=== PATIENT | female | born 1985 | race Caucasian/White ===

== ENCOUNTER 2016-09-01 11:17 | Inpatient (IN) | payer OTHER ==
[2016-09-01 12:31] VITALS: BMI 19.0
--- NOTE | 2016-09-01 13:14 | HP ---
COWS - Scale Resting Pulse: 1= [place] 81-100 Sweatin=Flushed/Facial Moisture Restless Observation: 1= Difficult to Sit Still Pupil Size: 0= Normal to Room Light Bone or Joint Aches: 2= Severe Diffuse Aches Runny Nose/ Eye Tearin= Runny Nose/Eyes GI Upset > 30mins: 2= Nausea/Diarrhea Tremor Observation: 2= Slight Tremor Visible Yawning Observation: 2= >3x During Session Anxiety or Irritability: 2=Irritable/Anxious Goose Flesh Skin: 3=Piloerection COWS Score: 19 Admission ROS S - HPI Chief Complaint: I need help Allergies/Adverse Reactions: Allergies Allergy/AdvReac Type Severity Reaction Status Date / Time No Known Allergies Allergy Verified 09/01/16 13:04 History of Present Illness: pt is a 30yr old female with a history of heroin dependence seeking detox for treatment. Exam Limitations: No Limitations - Ebola screening Have you traveled outside of the country in the last 21 days: No Have you had contact with anyone from an Ebola affected area: No Have you been sick,other than usual withdrawal symptoms: No Do you have a fever: No - Review of Systems Constitutional: Chills, Loss of Appetite, Changes in sleep, Unintentional Wgt. Loss EENT: reports: Tearing, Nose Congestion Respiratory: reports: No Symptoms reported Cardiac: reports: No Symptoms Reported GI: reports: Diarrhea, Nausea, Poor Appetite, Poor Fluid Intake : reports: No Symptoms Reported Musculoskeletal: reports: Back Pain, Joint Pain Integumentary: reports: Flushing, Sweating Neuro: reports: Headache, Tingling, Tremors Endocrine: reports: Excessive Sweating, Flushing, Intolerance to Cold, Intolerance to Heat Hematology: reports: Anemia Psychiatric: reports: Judgement Intact, Mood/Affect Appropiate, Orientated x3, Agitated, Anxious Other Systems: Reviewed and Negative Patient History - Patient Medical History Hx Anemia: Yes Hx Asthma: No Hx Chronic Obstructive Pulmonary Disease (COPD): No Hx Cancer: No Hx Cardiac Disorders: No Hx Congestive Heart Failure: No Hx Hypertension: Yes (clonidine 0.3mg tid) Hx Hypercholesterolemia: No Hx Pacemaker: No HX Cerebrovascular Accident: No Hx Seizures: No Hx Dementia: No Hx Diabetes: No Hx Gastrointestinal Disorders: No Hx Liver Disease: No Hx Genitourinary Disorders: No Hx Sexually Transmitted Disorders: No Hx Renal Disease (ESRD): No Hx Thyroid Disease: No Hx Human Immunodeficiency Virus (HIV): No (negative) Hx Hepatitis C: Yes Hx Depression: No Hx Suicide Attempt: No (denies) Hx Bipolar Disorder: No Hx Schizophrenia: No Other Medical History: anxiety - Patient Surgical History Hx Abdominal Surgery: Yes () - PPD History Previous Implant?: Yes Documented Results: Negative w/o proof Implanted On Prior R Admission?: Yes PPD to be Administered?: Yes - Reproductive History Patient is a Female of Child Bearing Age (11 -55 yrs old): Yes LMP comment: 3 yrs ago Patient : No - Smoking Cessation Smoking history: Current every day smoker Have you smoked in the past 12 months: Yes Aproximately how many cigarettes per day: 10 Hx Chewing Tobacco Use: No Initiated information on smoking cessation: Yes 'Breaking Loose' booklet given: 09/01/16 - Substance & Tx. History Hx Alcohol Use: No Hx Substance Use: Yes Substance Use Type: Heroin, Tranquilizers - Substances Abused Heroin Route: Injection Frequency: 3-6 times per week Amount used: 5-10 bags Age of first use: 15 Date of Last Use: 08/31/16 Xanax Route: Oral Frequency: Daily Amount used: 4-8 mg. Age of first use: 12 Date of Last Use: 08/29/16 Family Disease History - Family Disease History Family History: Denies Admission Physical Exam BHS - Vital Signs Vital Signs: Vital Signs - 24 hr 09/01/16 12:26 Temperature 96 F L Pulse Rate 93 H Respiratory 20 Rate Blood Pressure 134/94 - Physical General Appearance: Yes: Appropriately Dressed, Thin, Tremorous, Irritable, Sweating, Anxious HEENTM: Yes: Normal Voice, Nasal Congestion, Rhinorrhea Respiratory: Yes: Lungs Clear, Normal Breath Sounds, No Respiratory Distress Neck: Yes: No masses,lesions,Nodules Breast: Yes: Within Normal Limits Cardiology: Yes: Regular Rhythm, Regular Rate, S1, S2, Tachycardia Abdominal: Yes: Normal Bowel Sounds, Non Tender, Soft Genitourinary: Yes: Within Normal Limits Back: Yes: Normal Inspection Musculoskeletal: Yes: full range of Motion, Back pain Extremities: Yes: Normal Capillary Refill, Tremors Neurological: Yes: Fully Oriented, Alert, Normal Response Integumentary: Yes: Normal Color, Diaphoresis, Track Evans Lymphatic: Yes: Within Normal Limits - Diagnostic (1) Nicotine dependence Current Visit: Yes Status: Chronic Qualifiers: Nicotine product type: cigarettes Substance use status: uncomplicated Qualified Code(s): F17.210 - Nicotine dependence, cigarettes, uncomplicated (2) Opioid dependence with withdrawal Current Visit: Yes Status: Chronic (3) Hypertension Current Visit: Yes Status: Chronic Qualifiers: Hypertension type: essential hypertension Qualified Code(s): I10 - Essential (primary) hypertension (4) Hepatitis C Current Visit: Yes Status: Chronic Qualifiers: Viral hepatitis chronicity: chronic Hepatic coma status: without hepatic coma Qualified Code(s): B18.2 - Chronic viral hepatitis C Cleared for Admission BHS - Detox or Rehab [facility] Level of Care: Medically Managed Detox Regimen/Protocol: Methadone [facility] Breath Alcohol Content Breath Alcohol Content: 0 Urine Pregancy Test - Result Urine Test Results: Negative- NO Line Present Urine Drug Screen - Results Drug Screen Negative: No Urine Drug Screen Results: GISEL-Cocaine, OPI-Opiates, PCP-Phencyclidine, MTD- Methadone
[2016-09-01] MEDS ORDERED: MAGNESIUM CITRATE 300 ML BOTTLE PO PRN (13:33)
[2016-09-01] MEDS ORDERED: MAGNESIUM HYDROX 2400MG/30ML ORAL SUSPENSION 30 ML CUP PO PRN (13:33)
[2016-09-01] MEDS ORDERED: guaiFENesin/D-METHORPHAN HB 10 ML UNIT-DOSE CUPS PO PRN (13:33)
[2016-09-01] MEDS ORDERED: LOPERAMIDE HCL 2 MG CAPSULE PO PRN (13:33)
[2016-09-01] MEDS ORDERED: MAG HYDROX/AL HYDROX/SIMETH 30 ML UNIT-DOSE CUP PO PRN (13:33)
[2016-09-01] MEDS ORDERED: diphenhydrAMINE HCL 50 MG CAPSULE PO PRN (13:33)
[2016-09-01] MEDS ORDERED: MENTHOL/PHENOL 1 EACH UD MM PRN (13:33)
[2016-09-01] MEDS ORDERED: hydrOXYzine PAMOATE 50 MG CAPSULE (FP) PO PRN (13:33)
[2016-09-01] MEDS ORDERED: P-EPHED 60MG/TRIPROLIDI 2.5MG TABLET PO PRN (13:33)
[2016-09-01] MEDS ORDERED: METHADONE HCL 10 MG TABLET (FOR DETOX USE ONLY) PO ONE ×2 (14:15→23:00)
[2016-09-01] MEDS: diazePAM 5 MG TABLET PO PRN ×2 (14:58→22:24)
--- NOTE | 2016-09-01 15:25 | CONSULT ---
[facility] Psychiatric Consult - Data Date of interview: 09/01/16 Admission source: [facility] Identifying data: This is 30 years old female with psychgiatric hospitalization history intoxicated with: Heroin, Xanax and Nicotine Substance Abuse History: Smoking Cessation. Smoking history: Current every day smoker. Have you smoked in the past 12 months: Yes. Aproximately how many cigarettes per day: 10. Hx Chewing Tobacco Use: No. Initiated information on smoking cessation: Yes. 'Breaking Loose' booklet given: 09/01/16. - Substance & Tx. History. Hx Alcohol Use: No. Hx Substance Use: Yes. Substance Use Type : Heroin, Tranquilizers. - Substances Abused. Heroin. Route: Injection. Frequency: 3-6 times per week. Amount used: 5-10 bags. Age of first use: 15. Date of Last Use: 08/31/16. Xanax. Route: Oral. Frequency: Daily. Amount used: 4-8 mg. Age of first use: 12. Date of Last Use: 08/29/16 Medical History: HTN, HepC+, Psychiatric History: Patoient reports history of PTSD, reports only psychiatric admission on about 8 years ago after in family, denies suicidal history, reports taking prior to admission : Gabapentin 800mg po tid. Klonopin Physical/Sexual Abuse/Trauma History: Denies Additional Comment: Gabapentin 800mg po tid Mental Status Exam - Mental Status Exam Alert and Oriented to: Person Cognitive Function: Fair Patient Appearance: Unkempt Mood: Anxious Affect: Mood Congruent Patient Behavior: Impulsive, Talkative Speech Pattern: Excessive, Pressured Voice Loudness: Mildly Loud Thought Process: Goal Oriented Thought Disorder: Being Controlled Hallucinations: Denies Suicidal Ideation: Denies Homicidal Ideation: Denies Insight/Judgement: Fair Sleep: Difficulty falling asleep Appetite: Weight loss Muscle strength/Tone: Normal Gait/Station: Normal Additional Comments: Gabapentin 800mg po tid Psychiatric Findings - Problem List ([place] 1, 2,3) (1) Nicotine dependence Current Visit: Yes Status: Chronic Qualifiers: Nicotine product type: cigarettes Substance use status: uncomplicated Qualified Code(s): F17.210 - Nicotine dependence, cigarettes, uncomplicated (2) Opioid dependence with withdrawal Current Visit: Yes Status: Chronic (3) Klonopin use disorder, mild, abuse Current Visit: Yes Status: Acute (4) Drug-induced mood disorder Current Visit: Yes Status: Acute - Initial Treatment Plan Initial Treatment Plan: Gabapentin 800mg po tid
[2016-09-01] MEDS: cloNIDine HCL 0.1 MG TABLET PO SCH (15:30)
[2016-09-01 18:49] LABS: URINE APPEARANCE SLCLOUDY; URINE BILIRUBIN NEGATIVE (NEGATIVE); URINE BLOOD NEGATIVE (NEGATIVE); URINE COLOR YELLOW; URINE GLUCOSE (UA) NEGATIVE (NEGATIVE); URINE KETONE NEGATIVE (NEGATIVE); URINE LEUK ESTERASE NEGATIVE (NEGATIVE); URINE NITRITE NEGATIVE (NEGATIVE); URINE PROTEIN NEGATIVE (NEGATIVE); URINE UROBILINOGEN NEGATIVE E.U./dl (0.2-1.0)
[2016-09-01] MEDS: THIAMINE HCL 100 MG TABLET (FP) PO SCH (22:21)
[2016-09-01] MEDS: GABAPENTIN 400 MG CAPSULE (FP) PO SCH (22:21)
[2016-09-02] MEDS: diazePAM 5 MG TABLET PO PRN ×4 (06:53→22:32)
[2016-09-02] MEDS: IBUPROFEN 400 MG TABLET (FP) PO PRN (06:59)
[2016-09-02] MEDS: NICOTINE POLACRILEX 4 MG GUM BC PRN ×2 (08:54→18:04)
[2016-09-02] MEDS ORDERED: METHADONE HCL 10 MG TABLET (FOR DETOX USE ONLY) PO ONE (10:00)
[2016-09-02 10:02] LABS: MCHC 31.8 g/dl (32.0-36.0); MEAN CELL VOLUME 81.7 fl (80-96); MEAN PLT VOLUME 7.8 fl (7.5-11.1); PLATELET COUNT 297 K/MM3 (134-434); RDW 15.4 % (11.6-15.6); WHITE BLOOD COUNT 13.8 K/mm3 (4.0-10.0)
--- NOTE | 2016-09-02 10:02 | PN ---
BHS COWS - Scale Resting Pulse: 1= [place] 81-100 Sweatin=Flushed/Facial Moisture Restless Observation: 1= Difficult to Sit Still Pupil Size: 1= Pupils >than Normal Bone or Joint Aches: 2= Severe Diffuse Aches Runny Nose/ Eye Tearin= Nasal Congestion GI Upset > 30mins: 2= Nausea/Diarrhea Tremor Observation of Outstretched Hands: 1= Tremor [place], Not Seen Yawning Observation: 0= None Anxiety or Irritability: 2=Irritable/Anxious Goose Flesh Skin: 0=Smooth Skin COWS Score: 13 BHS Progress Note (SOAP) Subjective: interrupted sleep, drenched sweats, irritable , lbp vomiting x 1 in am Objective: 09/02/16 09:58 09/02/16 10:01 Vital Signs Temperature 98.3 F 09/02/16 06:35 Pulse Rate 80 09/02/16 06:35 Respiratory Rate 18 09/02/16 06:35 Blood Pressure 100/61 09/02/16 06:35 O2 Sat by Pulse Oximetry (%) Laboratory Tests 09/01/16 09/01/16 13:20 14:00 Urine Color Yellow Urine Appearance Slcloudy Urine pH 6.0 Ur Specific [place] 1.029 Urine Protein Negative Urine Glucose (UA) Negative Urine Ketones Negative Urine Blood Negative Urine Nitrite Negative Urine Bilirubin Negative Urine Urobilinogen Negative Ur Leukocyte Esterase Negative Hepatitis C Antibody >11.0 H Assessment: 09/02/16 10:02 withdrawal sx's 09/02/16 11:04 lbp Plan: cont. detox increase fluids lidocaine patch/d motrin prn valium prn
[2016-09-02 10:05] LABS: ALBUMIN 3.9 g/dl (3.4-5.0); ANION GAP 7 (8-16); CO2 28 mmol/L (21-32); GLUCOSE,RANDOM 160 mg/dL (74-106)
[2016-09-02 10:09] LABS: ALK PHOS 84 U/L (45-117); BILIRUBIN,TOTAL 0.3 mg/dL (0.2-1.0); CREATININE 0.9 mg/dL (0.55-1.02); SGOT/AST 30 U/L (15-37); SGPT/ALT 68 U/L (12-78); TOT PROT 7.5 g/dl (6.4-8.2)
[2016-09-02] MEDS: PRENATAL VITAMINS W/ FOLIC ACID TABLET (FP) PO SCH (10:36)
[2016-09-02] MEDS: GABAPENTIN 400 MG CAPSULE (FP) PO SCH ×2 (10:36→22:33)
[2016-09-02] MEDS: cloNIDine HCL 0.1 MG TABLET PO SCH (10:36)
[2016-09-02] MEDS: NICOTINE 21 MG/24 HOURS TOPICAL PATCH TD SCH (10:37)
[2016-09-02] MEDS ORDERED: LIDOCAINE 5% TOPICAL PATCH TP ONE (11:06)
--- NOTE | 2016-09-02 15:35 | EKG ---
Test Reason : Blood Pressure : / mmHG Vent. Rate : 073 BPM Atrial Rate : 073 BPM P-R Int : 114 ms QRS Dur : 078 ms QT Int : 400 ms P-R-T Axes : 033 061 045 degrees QTc Int : 440 ms NORMAL SINUS RHYTHM WITH SINUS ARRHYTHMIA NORMAL ECG NO PREVIOUS ECGS AVAILABLE Confirmed by TOSHA GOMES MD ([id number]) on 09/02/2016 3:35:07 PM Referred By: Confirmed By:TOSHA GOMES MD
[2016-09-02] MEDS: THIAMINE HCL 100 MG TABLET (FP) PO SCH (22:33)
[2016-09-03] MEDS: diazePAM 5 MG TABLET PO PRN ×5 (02:56→22:32)
[2016-09-03] MEDS: IBUPROFEN 400 MG TABLET (FP) PO PRN ×2 (02:57→08:47)
[2016-09-03] MEDS: NICOTINE POLACRILEX 4 MG GUM BC PRN (07:15)
[2016-09-03] MEDS ORDERED: METHADONE HCL 5 MG TABLET (FOR DETOX USE ONLY) PO ONE (10:00)
[2016-09-03] MEDS: LIDOCAINE 5% TOPICAL PATCH TP SCH (10:12)
[2016-09-03] MEDS: PRENATAL VITAMINS W/ FOLIC ACID TABLET (FP) PO SCH (10:12)
[2016-09-03] MEDS: cloNIDine HCL 0.1 MG TABLET PO SCH (10:12)
[2016-09-03] MEDS: GABAPENTIN 400 MG CAPSULE (FP) PO SCH ×2 (10:12→22:32)
[2016-09-03] MEDS: NICOTINE 21 MG/24 HOURS TOPICAL PATCH TD SCH (10:13)
--- NOTE | 2016-09-03 11:33 | PN ---
BHS COWS - Scale Resting Pulse: 2= [place] 101-120 Sweatin=Flushed/Facial Moisture Restless Observation: 1= Difficult to Sit Still Pupil Size: 0= Normal to Room Light Bone or Joint Aches: 2= Severe Diffuse Aches Runny Nose/ Eye Tearin= None GI Upset > 30mins: 0= None Tremor Observation of Outstretched Hands: 1= Tremor [place], Not Seen Yawning Observation: 0= None Anxiety or Irritability: 2=Irritable/Anxious Goose Flesh Skin: 0=Smooth Skin COWS Score: 10 BHS Progress Note (SOAP) Subjective: sweats agitation anxiety headache Objective: 09/03/16 11:24 Vital Signs Temperature 97.8 F 09/03/16 10:21 Pulse Rate 108 H 09/03/16 10:21 Respiratory Rate 16 09/03/16 10:21 Blood Pressure 135/73 09/03/16 10:21 O2 Sat by Pulse Oximetry (%) Laboratory Tests 09/01/16 09/01/16 09/02/16 13:20 14:00 06:00 WBC 13.8 H RBC 4.97 Hgb 12.9 Hct 40.6 MCV 81.7 MCHC 31.8 L RDW 15.4 Plt Count 297 MPV 7.8 Sodium Potassium Chloride Carbon Dioxide Anion Gap BUN Creatinine Creat Clearance w eGFR Random Glucose Calcium Total Bilirubin AST ALT Alkaline Phosphatase Total Protein Albumin Urine Color Yellow Urine Appearance Slcloudy Urine pH 6.0 Ur Specific [place] 1.029 Urine Protein Negative Urine Glucose (UA) Negative Urine Ketones Negative Urine Blood Negative Urine Nitrite Negative Urine Bilirubin Negative Urine Urobilinogen Negative Ur Leukocyte Esterase Negative RPR Titer Hepatitis C Antibody >11.0 H 09/02/16 09/02/16 06:00 06:00 WBC RBC Hgb Hct MCV MCHC RDW Plt Count MPV Sodium 143 Potassium 3.7 Chloride 108 H Carbon Dioxide 28 Anion Gap 7 L BUN 23 H Creatinine 0.9 Creat Clearance w eGFR > 60 Random Glucose 160 H Calcium 9.0 Total Bilirubin 0.3 AST 30 ALT 68 Alkaline Phosphatase 84 Total Protein 7.5 Albumin 3.9 Urine Color Urine Appearance Urine pH Ur Specific [place] Urine Protein Urine Glucose (UA) Urine Ketones Urine Blood Urine Nitrite Urine Bilirubin Urine Urobilinogen Ur Leukocyte Esterase RPR Titer Nonreactive Hepatitis C Antibody awake/alert ambulating no acute distress Assessment: 09/03/16 11:25 withdrawal sx Plan: continue detox increase fluids as per pt request she wants to be d/c on Thursday and would be ok with having her methadone decreased by 5mg. will change order as per request.
[2016-09-03] MEDS: ACETAMINOPHEN 325 MG TABLET (FP) PO PRN ×2 (17:09→22:33)
[2016-09-03] MEDS: THIAMINE HCL 100 MG TABLET (FP) PO SCH (22:31)
[2016-09-04 00:08] LABS: HCV LOG 10 5.83 (.)
[2016-09-04] MEDS: diazePAM 5 MG TABLET PO PRN ×3 (02:43→10:34)
[2016-09-04] MEDS: ACETAMINOPHEN 325 MG TABLET (FP) PO PRN (07:17)
[2016-09-04 09:54] VITALS: BP 120/69; PULSE 106; TEMP 98.6
[2016-09-04] MEDS ORDERED: METHADONE HCL 5 MG TABLET (FOR DETOX USE ONLY) PO ONE (10:00)
[2016-09-04] MEDS: cloNIDine HCL 0.1 MG TABLET PO SCH (10:34)
[2016-09-04] MEDS: PRENATAL VITAMINS W/ FOLIC ACID TABLET (FP) PO SCH (10:34)
[2016-09-04] MEDS: GABAPENTIN 400 MG CAPSULE (FP) PO SCH (10:34)
[2016-09-04] MEDS: NICOTINE 21 MG/24 HOURS TOPICAL PATCH TD SCH (10:35)
[2016-09-04] MEDS: LIDOCAINE 5% TOPICAL PATCH TP SCH (10:38)
--- NOTE | 2016-09-04 12:46 | PN ---
BHS Progress Note (SOAP) Subjective: Sweating, interrupted sleep, Body aches, Diarrhea, Stomach Cramping, Headache. Objective: PT. A & O X 3, OBSERVED AMBULATING ON UNIT. 09/04/16 12:44 Vital Signs Temperature 98.6 F 09/04/16 09:54 Pulse Rate 106 H 09/04/16 09:54 Respiratory Rate 18 09/04/16 09:54 Blood Pressure 120/69 09/04/16 09:54 O2 Sat by Pulse Oximetry (%) Laboratory Last Values WBC 13.8 K/mm3 (4.0-10.0) H 09/02/16 06:00 RBC 4.97 M/mm3 (3.60-5.2) 09/02/16 06:00 Hgb 12.9 GM/dL (10.7-15.3) 09/02/16 06:00 Hct 40.6 % (32.4-45.2) 09/02/16 06:00 MCV 81.7 fl (80-96) 09/02/16 06:00 MCHC 31.8 g/dl (32.0-36.0) L 09/02/16 06:00 RDW 15.4 % (11.6-15.6) 09/02/16 06:00 Plt Count 297 K/MM3 (134-434) 09/02/16 06:00 MPV 7.8 fl (7.5-11.1) 09/02/16 06:00 Sodium 143 mmol/L (136-145) 09/02/16 06:00 Potassium 3.7 mmol/L (3.5-5.1) 09/02/16 06:00 Chloride 108 mmol/L (98-107) H 09/02/16 06:00 Carbon Dioxide 28 mmol/L (21-32) 09/02/16 06:00 Anion Gap 7 (8-16) L 09/02/16 06:00 BUN 23 mg/dL (7-18) H 09/02/16 06:00 Creatinine 0.9 mg/dL (0.55-1.02) 09/02/16 06:00 Creat Clearance w eGFR > 60 (>60) 09/02/16 06:00 Random Glucose 160 mg/dL (74-106) H 09/02/16 06:00 Calcium 9.0 mg/dL (8.5-10.1) 09/02/16 06:00 Total Bilirubin 0.3 mg/dL (0.2-1.0) 09/02/16 06:00 AST 30 U/L (15-37) 09/02/16 06:00 ALT 68 U/L (12-78) 09/02/16 06:00 Alkaline Phosphatase 84 U/L (45-117) 09/02/16 06:00 Total Protein 7.5 g/dl (6.4-8.2) 09/02/16 06:00 Albumin 3.9 g/dl (3.4-5.0) 09/02/16 06:00 Urine Color Yellow 09/01/16 14:00 Urine Appearance Slcloudy 09/01/16 14:00 Urine pH 6.0 (5.0-8.0) 09/01/16 14:00 Ur Specific [place] 1.029 (1.001-1.035) 09/01/16 14:00 Urine Protein Negative (NEGATIVE) 09/01/16 14:00 Urine Glucose (UA) Negative (NEGATIVE) 09/01/16 14:00 Urine Ketones Negative (NEGATIVE) 09/01/16 14:00 Urine Blood Negative (NEGATIVE) 09/01/16 14:00 Urine Nitrite Negative (NEGATIVE) 09/01/16 14:00 Urine Bilirubin Negative (NEGATIVE) 09/01/16 14:00 Urine Urobilinogen Negative E.U./dl (0.2-1.0) 09/01/16 14:00 Ur Leukocyte Esterase Negative (NEGATIVE) 09/01/16 14:00 RPR Titer Nonreactive (NONREACTIVE) 09/02/16 06:00 Hepatitis C Antibody >11.0 s/co ratio (0.0-0.9) H 09/01/16 13:20 HCV Quantitation [id number] IU/mL (.) 09/02/16 11:10 HCV RNA log copies/mL 5.830 (.) 09/02/16 11:10 LABS NOTED. Assessment: 09/04/16 12:45 WITHDRAWAL SYMPTOMS. Plan: CONTINUE DETOX. [facility] TOMORROW FOR ELEVATED ADMISSION RANDOM GLUCOSE LEVEL.
--- NOTE | 2016-09-04 15:26 | DS ---
[facility] Detox Discharge Summary Admission Date: 09/01/16 Discharge Date: 09/04/16 - History Present History: Opioid Dependence Additional Comments: ADVISED PATIENT TO FOLLOW-UP WITH [facility] FOR GENERAL MEDICAL ASSESSMENT. Pertinent Past History: Anemia, Hep C, Anxiety, HTN. - Physical Exam Results Vital Signs: Vital Signs Temperature 98.6 F 09/04/16 09:54 Pulse Rate 106 H 09/04/16 09:54 Respiratory Rate 18 09/04/16 09:54 Blood Pressure 120/69 09/04/16 09:54 O2 Sat by Pulse Oximetry (%) Pertinent Admission Physical Exam Findings: WITHDRAWAL SYMPTOMS. Laboratory Last Values WBC 13.8 K/mm3 (4.0-10.0) H 09/02/16 06:00 RBC 4.97 M/mm3 (3.60-5.2) 09/02/16 06:00 Hgb 12.9 GM/dL (10.7-15.3) 09/02/16 06:00 Hct 40.6 % (32.4-45.2) 09/02/16 06:00 MCV 81.7 fl (80-96) 09/02/16 06:00 MCHC 31.8 g/dl (32.0-36.0) L 09/02/16 06:00 RDW 15.4 % (11.6-15.6) 09/02/16 06:00 Plt Count 297 K/MM3 (134-434) 09/02/16 06:00 MPV 7.8 fl (7.5-11.1) 09/02/16 06:00 Sodium 143 mmol/L (136-145) 09/02/16 06:00 Potassium 3.7 mmol/L (3.5-5.1) 09/02/16 06:00 Chloride 108 mmol/L (98-107) H 09/02/16 06:00 Carbon Dioxide 28 mmol/L (21-32) 09/02/16 06:00 Anion Gap 7 (8-16) L 09/02/16 06:00 BUN 23 mg/dL (7-18) H 09/02/16 06:00 Creatinine 0.9 mg/dL (0.55-1.02) 09/02/16 06:00 Creat Clearance w eGFR > 60 (>60) 09/02/16 06:00 Random Glucose 160 mg/dL (74-106) H 09/02/16 06:00 Calcium 9.0 mg/dL (8.5-10.1) 09/02/16 06:00 Total Bilirubin 0.3 mg/dL (0.2-1.0) 09/02/16 06:00 AST 30 U/L (15-37) 09/02/16 06:00 ALT 68 U/L (12-78) 09/02/16 06:00 Alkaline Phosphatase 84 U/L (45-117) 09/02/16 06:00 Total Protein 7.5 g/dl (6.4-8.2) 09/02/16 06:00 Albumin 3.9 g/dl (3.4-5.0) 09/02/16 06:00 Urine Color Yellow 09/01/16 14:00 Urine Appearance Slcloudy 09/01/16 14:00 Urine pH 6.0 (5.0-8.0) 09/01/16 14:00 Ur Specific [place] 1.029 (1.001-1.035) 09/01/16 14:00 Urine Protein Negative (NEGATIVE) 09/01/16 14:00 Urine Glucose (UA) Negative (NEGATIVE) 09/01/16 14:00 Urine Ketones Negative (NEGATIVE) 09/01/16 14:00 Urine Blood Negative (NEGATIVE) 09/01/16 14:00 Urine Nitrite Negative (NEGATIVE) 09/01/16 14:00 Urine Bilirubin Negative (NEGATIVE) 09/01/16 14:00 Urine Urobilinogen Negative E.U./dl (0.2-1.0) 09/01/16 14:00 Ur Leukocyte Esterase Negative (NEGATIVE) 09/01/16 14:00 RPR Titer Nonreactive (NONREACTIVE) 09/02/16 06:00 Hepatitis C Antibody >11.0 s/co ratio (0.0-0.9) H 09/01/16 13:20 HCV Quantitation [id number] IU/mL (.) 09/02/16 11:10 HCV RNA log copies/mL 5.830 (.) 09/02/16 11:10 LABS NOTED. - Treatment Hospital Course: Detoxed Safely - Medication Discharge Medications: Ambulatory Orders Gabapentin [Neurontin -] 800 mg PO BID #90 capsule 09/01/16 - Diagnosis (1) Hepatitis C Status: Chronic Qualifiers: Viral hepatitis chronicity: chronic Hepatic coma status: without hepatic coma Qualified Code(s): B18.2 - Chronic viral hepatitis C (2) Hypertension Status: Chronic Qualifiers: Hypertension type: essential hypertension Qualified Code(s): I10 - Essential (primary) hypertension (3) Nicotine dependence Status: Chronic Qualifiers: Nicotine product type: cigarettes Substance use status: uncomplicated Qualified Code(s): F17.210 - Nicotine dependence, cigarettes, uncomplicated (4) Opioid dependence with withdrawal Status: Acute - AMA Did Patient Leave Against Medical Advice: Yes (PATIENT DID NOT WANT TO STAY TO COMPLETE DETOX PROTOCOL.)
[2016-09-05] MEDS ORDERED: METHADONE HCL 5 MG TABLET (FOR DETOX USE ONLY) PO ONE (06:00)
[2016-09-05] MEDS ORDERED: METHADONE HCL 10 MG TABLET (FOR DETOX USE ONLY) PO ONE (10:00)
[2016-09-06] MEDS ORDERED: METHADONE HCL 5 MG TABLET (FOR DETOX USE ONLY) PO ONE (06:00)
== END 2016-09-04 14:12 | disposition left against medical advice (07) | DRG 770 ==
LOC: YASAS 11:17 → Y6N 14:05
PROVIDERS: ADMIT Internal Medicine Addiction Medicine; ATTEND Internal Medicine Addiction Medicine
PROC: HZ2ZZZZ Detoxification Services for Substance Abuse Treatment (ICD-10-PCS; principal; 2016-09-04)
DX: F11.23 Opioid dependence with withdrawal (principal); F17.210 Nicotine dependence, cigarettes, uncomplicated; F13.10 Sedative, hypnotic or anxiolytic abuse, uncomplicated; B18.2 Chronic viral hepatitis C
CPT/HCPCS: 36415; 80053; 81003; 85027; 86593; 87522; 93005; 93010

== ENCOUNTER 2017-04-05 17:15 | Inpatient (IN) | payer OTHER ==
--- NOTE | 2017-04-05 18:19 | HP ---
COWS - Scale Resting Pulse: 0= [place] 80 or Below Sweatin=Flushed/Facial Moisture Restless Observation: 3= Extraneous Movement Pupil Size: 2= Moderately Dilated Bone or Joint Aches: 2= Severe Diffuse Aches Runny Nose/ Eye Tearin= Runny Nose/Eyes GI Upset > 30mins: 3= Vomiting/Diarrhea Tremor Observation: 2= Slight Tremor Visible Yawning Observation: 2= >3x During Session Anxiety or Irritability: 2=Irritable/Anxious Goose Flesh Skin: 0=Smooth Skin COWS Score: 20 CIWA Score - CIWA Score Nausea/Vomitin Muscle Tremors: 3 Anxiety: 3 Agitation: 3 Paroxysmal Sweats: 2 Orientation: 0-Oriented Tacttile Disturbances: 2-Mild Itch/Numbness/Burn Auditory Disturbances: 1-Very Mild Visual Disturbances: 0-None Headache: 2-Mild CIWA-Ar Total Score: 19 Admission ROS BHS - HPI Chief Complaint: i need help to stop using heroin and xanax Allergies/Adverse Reactions: Allergies Allergy/AdvReac Type Severity Reaction Status Date / Time No Known Allergies Allergy Verified 09/01/16 13:04 History of Present Illness: this 31 years old female with heroin and xanax dependence,seeking detox,last treatment 10/20 [facility] seizure last 2015 weight loss multiple admissions in detox longest period of sobriety 10 years nicotine dependence Exam Limitations: No Limitations - Ebola screening Have you traveled outside of the country in the last 21 days: No Have you had contact with anyone from an Ebola affected area: No Do you have a fever: No - Review of Systems Constitutional: Diaphoresis, Loss of Appetite, Malaise, Night Sweats, Changes in sleep, Weakness, Unintentional Wgt. Loss EENT: reports: Tearing, Nose Congestion, Other (pain in tyhe left lower molar with gingivitis) Respiratory: reports: Cough Cardiac: reports: No Symptoms Reported GI: reports: Diarrhea, Nausea, Vomiting, Abdominal cramping : reports: No Symptoms Reported Musculoskeletal: reports: Back Pain, Joint Pain, Muscle Pain, Joint Stiffness Integumentary: reports: Dryness Neuro: reports: Headache, Tremors Hematology: reports: No Symptoms Reported Psychiatric: reports: No Sypmtoms Reported, Judgement Intact, Mood/Affect Appropiate, Orientated x3 Patient History - Patient Medical History Hx Anemia: Yes (no med) Hx Asthma: No Hx Chronic Obstructive Pulmonary Disease (COPD): No Hx Cancer: No Hx Cardiac Disorders: No Hx Congestive Heart Failure: No Hx Hypertension: Yes (non compliance) Hx Hypercholesterolemia: No Hx Pacemaker: No HX Cerebrovascular Accident: No Hx Seizures: No Hx Dementia: No Hx Diabetes: No Hx Gastrointestinal Disorders: No Hx Liver Disease: No Hx Genitourinary Disorders: No Hx Sexually Transmitted Disorders: No Hx Renal Disease (ESRD): No Hx Thyroid Disease: No Hx Human Immunodeficiency Virus (HIV): No (negative last 07/22) Hx Hepatitis C: Yes (no treatment ) Hx Depression: No Hx Suicide Attempt: No (denies) Hx Bipolar Disorder: No Hx Schizophrenia: No Other Medical History: no suicidal,no homicidal - Patient Surgical History Past Surgical History: Yes Hx Neurologic Surgery: No Hx Cataract Extraction: No Hx Cardiac Surgery: No Hx Lung Surgery: No Hx Breast Surgery: No Hx Breast Biopsy: No Hx Abdominal Surgery: Yes () Hx Appendectomy: No Hx Cholecystectomy: No Hx Genitourinary Surgery: No Hx Section: Yes (2011) Hx Orthopedic Surgery: No Anesthesia Reaction: No - PPD History Previous Implant?: Yes Date: 09/03/16 Results: 0 mm PPD to be Administered?: No - Reproductive History Patient is a Female of Child Bearing Age (11 -55 yrs old): Yes Patient : No - Smoking Cessation Smoking history: Current every day smoker Have you smoked in the past 12 months: Yes Aproximately how many cigarettes per day: 10 Hx Chewing Tobacco Use: No Initiated information on smoking cessation: Yes 'Breaking Loose' booklet given: 04/05/17 - Substance & Tx. History Hx Alcohol Use: No Hx Substance Use: Yes Substance Use Type: Heroin, Tranquilizers Hx Substance Use Treatment: Yes ([facility] 10/20) - Substances Abused Heroin Route: Injection Frequency: Daily Amount used: 10 to 20 bags Age of first use: 13 Date of Last Use: 04/05/17 Alprazolam (Xanax) Route: Oral Frequency: Daily Amount used: 6 mgs Age of first use: 12 Date of Last Use: 04/04/17 Family Disease History - Family Disease History Family History: Denies Admission Physical Exam BHS - Vital Signs Vital Signs: Vital Signs Temperature 97.6 F 04/05/17 18:35 Pulse Rate 77 04/05/17 18:35 Respiratory Rate 20 04/05/17 18:35 Blood Pressure 130/80 04/05/17 18:35 O2 Sat by Pulse Oximetry (%) - Physical General Appearance: Yes: Moderate Distress, Tremorous, Irritable, Sweating, Anxious HEENTM: Yes: Normal ENT Inspection, LEN, Pharynx Normal, Pale Conjunctivae R, Other (pain in left lowe gum,left lower molar) Respiratory: Yes: Lungs Clear, Normal Breath Sounds, No Respiratory Distress Neck: Yes: No masses,lesions,Nodules, Supple, Trachea in good position Breast: Yes: Breast Exam Deferred Cardiology: Yes: Within Normal Limits, Regular Rhythm, Regular Rate Abdominal: Yes: Normal Bowel Sounds, Non Tender, Soft, Surgical Scar Genitourinary: Yes: Within Normal Limits Back: Yes: Normal Inspection, Muscle Spasm Musculoskeletal: Yes: full range of Motion, Back pain, Muscle Pain Extremities: Yes: Normal Inspection, Normal Range of Motion, Tremors Neurological: Yes: brick or block maker II-XII NML intact, Alert, Motor Strength 5/5 Integumentary: Yes: Dry Lymphatic: Yes: Within Normal Limits - Diagnostic (1) Opioid dependence with withdrawal Current Visit: No Status: Acute (2) Hepatitis C Current Visit: No Status: Chronic Qualifiers: Viral hepatitis chronicity: chronic Hepatic coma status: without hepatic coma Qualified Code(s): B18.2 - Chronic viral hepatitis C; B18.2 - Chronic viral hepatitis C; B18.2 - Chronic viral hepatitis C; B18.2 - Chronic viral hepatitis C (3) Hypertension Current Visit: No Status: Chronic Qualifiers: Hypertension type: essential hypertension Qualified Code(s): I10 - Essential (primary) hypertension; I10 - Essential (primary) hypertension; I10 - Essential (primary) hypertension (4) Nicotine dependence Current Visit: No Status: Chronic Qualifiers: Nicotine product type: cigarettes Substance use status: uncomplicated Qualified Code(s): F17.210 - Nicotine dependence, cigarettes, uncomplicated; F17.210 - Nicotine dependence, cigarettes, uncomplicated (5) Uncomplicated sedative, hypnotic or anxiolytic withdrawal Current Visit: Yes Status: Acute (6) Toothache Current Visit: Yes Status: Acute (7) Gingivitis Current Visit: Yes Status: Acute (8) Seizure Current Visit: Yes Status: Acute Cleared for Admission [facility] - Detox or Rehab [facility] Level of Care: Medically Managed Detox Regimen/Protocol: Methadone/Valium [facility] Breath Alcohol Content Breath Alcohol Content: 0 Vital Signs - Vital Signs Vital Signs Refused: No Temperature: 97.6 F Temperature Source: Oral Pulse Rate: 77 Respiratory Rate: 20 Blood Pressure: 130/80 BP Location: Left Arm - Height Height: 5 ft 8 in - Weight Weight: 118 lb Body Mass Index (BMI): 17.9 Urine Pregancy Test - Test Device Lot Number: [id number] Expiration Date: 11/02/18 - Control Horizontal Line in Upper Control Window?: Yes - Result Urine Test Results: Negative- NO Line Present Urine Drug Screen - Test Device Lot Number: [id number] Expiration Date: 12/03/18 - Control Is Test Valid: Yes - Results Drug Screen Negative: No Urine Drug Screen Results: GISEL-Cocaine, OPI-Opiates, BZO-Benzodiazepines
[2017-04-05 18:35] VITALS: BMI 17.9
[2017-04-05] MEDS ORDERED: LOPERAMIDE HCL 2 MG CAPSULE PO PRN (18:43)
[2017-04-05] MEDS ORDERED: diphenhydrAMINE HCL 50 MG CAPSULE PO PRN (18:43)
[2017-04-05] MEDS ORDERED: MENTHOL/PHENOL 1 EACH UD MM PRN (18:43)
[2017-04-05] MEDS ORDERED: MAG HYDROX/AL HYDROX/SIMETH 30 ML UNIT-DOSE CUP PO PRN (18:43)
[2017-04-05] MEDS ORDERED: MAGNESIUM HYDROX 2400MG/30ML ORAL SUSPENSION 30 ML CUP PO PRN (18:43)
[2017-04-05] MEDS ORDERED: P-EPHED 60MG/TRIPROLIDI 2.5MG TABLET PO PRN (18:43)
[2017-04-05] MEDS ORDERED: MAGNESIUM CITRATE 300 ML BOTTLE PO PRN (18:43)
[2017-04-05] MEDS ORDERED: hydrOXYzine PAMOATE 25 MG CAPSULE (FP) PO PRN (18:43)
[2017-04-05] MEDS ORDERED: guaiFENesin/D-METHORPHAN HB 10 ML UNIT-DOSE CUPS PO PRN (18:43)
[2017-04-05] MEDS ORDERED: LIDOCAINE VISCOUS 2% ORAL/TOP 20 ML UNIT-DOSE CUP MM PRN (18:47)
[2017-04-05] MEDS ORDERED: CYCLOBENZAPRINE HCL 10 MG TABLET (FP) PO PRN (18:48)
[2017-04-05] MEDS: NICOTINE 21 MG/24 HOURS TOPICAL PATCH TD SCH (19:55)
[2017-04-05] MEDS: ACETAMINOPHEN 325 MG TABLET (FP) PO PRN (19:55)
[2017-04-05] MEDS ORDERED: diazePAM 5 MG TABLET PO ONE (20:00)
[2017-04-05] MEDS ORDERED: METHADONE HCL 10 MG TABLET (FOR DETOX USE ONLY) PO ONE ×2 (20:00→23:00)
[2017-04-05] MEDS: AMOXICILLIN 500 MG CAPSULE (FP) PO SCH (22:36)
[2017-04-05] MEDS: diazePAM 5 MG TABLET PO SCH (22:37)
[2017-04-05] MEDS: THIAMINE HCL 100 MG TABLET (FP) PO SCH (22:37)
[2017-04-05] MEDS: cloNIDine HCL 0.1 MG TABLET PO SCH (22:37)
[2017-04-06] MEDS: IBUPROFEN 400 MG TABLET (FP) PO PRN (05:17)
[2017-04-06] MEDS: diazePAM 5 MG TABLET PO SCH ×3 (05:19→22:09)
[2017-04-06] MEDS: AMOXICILLIN 500 MG CAPSULE (FP) PO SCH ×4 (06:58→22:09)
--- NOTE | 2017-04-06 09:30 | PN ---
[facility] CIWA - CIWA Score Nausea/Vomitin Muscle Tremors: 3 Anxiety: 3 Agitation: 2 Paroxysmal Sweats: 2 Orientation: 0-Oriented Tacttile Disturbances: 1-Very Mild Itch/Numbness Auditory Disturbances: 1-Very Mild Visual Disturbances: 1-Very Mild Sensitivity Headache: 2-Mild CIWA-Ar Total Score: 18 BHS COWS - Scale Resting Pulse: 0= [place] 80 or Below Sweatin= Chills/Flushing Restless Observation: 3= Extraneous Movement Pupil Size: 1= Pupils >than Normal Bone or Joint Aches: 2= Severe Diffuse Aches Runny Nose/ Eye Tearin= Runny Nose/Eyes GI Upset > 30mins: 2= Nausea/Diarrhea Tremor Observation of Outstretched Hands: 2= Slight Tremor Visible Yawning Observation: 1= 1-2x During Session Anxiety or Irritability: 4=Extreme Anxiety Goose Flesh Skin: 0=Smooth Skin COWS Score: 18 S Progress Note (SOAP) Subjective: alert,irritable,anxious,interrupted sleep,pain in the body and back,toothache Objective: 04/06/17 09:28 Vital Signs Temperature 98.1 F 04/06/17 06:23 Pulse Rate 61 04/06/17 06:23 Respiratory Rate 16 04/06/17 06:23 Blood Pressure 124/74 04/06/17 06:23 O2 Sat by Pulse Oximetry (%) ekg nsr,prolong qt labs pending Assessment: 04/06/17 09:29 withdrawal symptom Plan: continue detox
[2017-04-06] MEDS ORDERED: METHADONE HCL 10 MG TABLET (FOR DETOX USE ONLY) PO SCH (10:00)
[2017-04-06 10:07] LABS: MCH 25.5 pg (25.7-33.7); MCHC 31.9 g/dl (32.0-36.0); MEAN CELL VOLUME 79.8 fl (80-96); MEAN PLT VOLUME 7.5 fl (7.5-11.1); PLATELET COUNT 231 K/MM3 (134-434); WHITE BLOOD COUNT 6.1 K/mm3 (4.0-10.0)
[2017-04-06] MEDS: PRENATAL VITAMINS W/ FOLIC ACID TABLET (FP) PO SCH (10:33)
[2017-04-06] MEDS: cloNIDine HCL 0.1 MG TABLET PO SCH ×2 (10:33→22:09)
[2017-04-06 10:34] LABS: ALBUMIN 3.2 g/dl (3.4-5.0); ALK PHOS 70 U/L (45-117); ANION GAP 3 (8-16); BILIRUBIN,TOTAL 0.6 mg/dL (0.2-1.0); CALCIUM 8.4 mg/dL (8.5-10.1); CO2 31 mmol/L (21-32); CREATININE 0.8 mg/dL (0.55-1.02); GLUCOSE,RANDOM 67 mg/dL (74-106); SGOT/AST 41 U/L (15-37); SGPT/ALT 56 U/L (12-78); TOT PROT 6.4 g/dl (6.4-8.2)
[2017-04-06] MEDS: NICOTINE 21 MG/24 HOURS TOPICAL PATCH TD SCH (10:34)
--- NOTE | 2017-04-06 12:01 | EKG ---
Test Reason : Blood Pressure : / mmHG Vent. Rate : 089 BPM Atrial Rate : 089 BPM P-R Int : 140 ms QRS Dur : 070 ms QT Int : 404 ms P-R-T Axes : 065 053 043 degrees QTc Int : 491 ms NORMAL SINUS RHYTHM PROLONGED QT ABNORMAL ECG WHEN COMPARED WITH ECG OF 01-SEP-2016 15:02, QT HAS LENGTHENED Confirmed by DAVID AMIN MD ([id number]) on 04/06/2017 12:01:32 PM Referred By: Confirmed By:DAVID AMIN MD
[2017-04-06] MEDS: diazePAM 5 MG TABLET PO PRN (12:20)
[2017-04-06] MEDS: ACETAMINOPHEN 325 MG TABLET (FP) PO PRN ×2 (16:45→22:10)
[2017-04-06 17:06] LABS: URINE APPEARANCE CLEAR; URINE BILIRUBIN NEGATIVE (NEGATIVE); URINE BLOOD NEGATIVE (NEGATIVE); URINE COLOR LTYELLOW; URINE GLUCOSE (UA) NEGATIVE (NEGATIVE); URINE KETONE NEGATIVE (NEGATIVE); URINE LEUK ESTERASE TRACE (NEGATIVE); URINE NITRITE NEGATIVE (NEGATIVE); URINE PROTEIN NEGATIVE (NEGATIVE); URINE UROBILINOGEN NEGATIVE mg/dL (0.2-1.0)
[2017-04-06 17:31] LABS: URINE BACTERIA RARE /hpf (NONE SEEN); URINE MUCUS RARE; URINE RBC <1 /hpf (0-3); URINE WBC 3 /hpf (3-5)
[2017-04-06] MEDS: THIAMINE HCL 100 MG TABLET (FP) PO SCH (22:08)
[2017-04-07] MEDS: diazePAM 5 MG TABLET PO PRN ×3 (02:54→16:48)
[2017-04-07] MEDS: IBUPROFEN 400 MG TABLET (FP) PO PRN ×2 (07:50→16:48)
[2017-04-07] MEDS: AMOXICILLIN 500 MG CAPSULE (FP) PO SCH ×3 (07:50→22:09)
--- NOTE | 2017-04-07 09:06 | PN ---
S CIWA - CIWA Score Nausea/Vomitin Muscle Tremors: 3 Anxiety: 3 Agitation: 2 Paroxysmal Sweats: 1-Minimal Palms Moist Orientation: 0-Oriented Tacttile Disturbances: 1-Very Mild Itch/Numbness Auditory Disturbances: 1-Very Mild Visual Disturbances: 0-None Headache: 2-Mild CIWA-Ar Total Score: 16 BHS COWS - Scale Resting Pulse: 0= [place] 80 or Below Sweatin= Chills/Flushing Restless Observation: 3= Extraneous Movement Pupil Size: 1= Pupils >than Normal Bone or Joint Aches: 2= Severe Diffuse Aches Runny Nose/ Eye Tearin= Nasal Congestion GI Upset > 30mins: 3= Vomiting/Diarrhea Tremor Observation of Outstretched Hands: 2= Slight Tremor Visible Yawning Observation: 1= 1-2x During Session Anxiety or Irritability: 2=Irritable/Anxious Goose Flesh Skin: 0=Smooth Skin COWS Score: 16 BHS Progress Note (SOAP) Subjective: ALERT,IRRITABLE,ANXIOUS,INTERRUPTED SLEEP,TREMOR,PAIN IN THE BODY AND BACK Objective: 04/07/17 09:04 Vital Signs Temperature 96.4 F L 04/07/17 06:00 Pulse Rate 74 04/07/17 06:00 Respiratory Rate 18 04/07/17 06:00 Blood Pressure 105/58 04/07/17 06:00 O2 Sat by Pulse Oximetry (%) Laboratory Last Values WBC 6.1 K/mm3 (4.0-10.0) D 04/06/17 07:30 RBC 4.72 M/mm3 (3.60-5.2) 04/06/17 07:30 Hgb 12.0 GM/dL (10.7-15.3) 04/06/17 07:30 Hct 37.6 % (32.4-45.2) 04/06/17 07:30 MCV 79.8 fl (80-96) L 04/06/17 07:30 MCH 25.5 pg (25.7-33.7) L 04/06/17 07:30 MCHC 31.9 g/dl (32.0-36.0) L 04/06/17 07:30 RDW 16.0 % (11.6-15.6) H 04/06/17 07:30 Plt Count 231 K/MM3 (134-434) D 04/06/17 07:30 MPV 7.5 fl (7.5-11.1) 04/06/17 07:30 Sodium 142 mmol/L (136-145) 04/06/17 07:30 Potassium 4.6 mmol/L (3.5-5.1) D 04/06/17 07:30 Chloride 108 mmol/L (98-107) H 04/06/17 07:30 Carbon Dioxide 31 mmol/L (21-32) 04/06/17 07:30 Anion Gap 3 (8-16) L 04/06/17 07:30 BUN 17 mg/dL (7-18) D 04/06/17 07:30 Creatinine 0.8 mg/dL (0.55-1.02) 04/06/17 07:30 Creat Clearance w eGFR > 60 (>60) 04/06/17 07:30 Random Glucose 67 mg/dL (74-106) L D 04/06/17 07:30 Calcium 8.4 mg/dL (8.5-10.1) L 04/06/17 07:30 Total Bilirubin 0.6 mg/dL (0.2-1.0) D 04/06/17 07:30 AST 41 U/L (15-37) H D 04/06/17 07:30 ALT 56 U/L (12-78) 04/06/17 07:30 Alkaline Phosphatase 70 U/L (45-117) 04/06/17 07:30 Total Protein 6.4 g/dl (6.4-8.2) 04/06/17 07:30 Albumin 3.2 g/dl (3.4-5.0) L 04/06/17 07:30 Urine Color Ltyellow 04/06/17 16:30 Urine Appearance Clear 04/06/17 16:30 Urine pH 7.0 (5.0-8.0) 04/06/17 16:30 Ur Specific [place] 1.015 (1.005-1.025) 04/06/17 16:30 Urine Protein Negative (NEGATIVE) 04/06/17 16:30 Urine Glucose (UA) Negative (NEGATIVE) 04/06/17 16:30 Urine Ketones Negative (NEGATIVE) 04/06/17 16:30 Urine Blood Negative (NEGATIVE) 04/06/17 16:30 Urine Nitrite Negative (NEGATIVE) 04/06/17 16:30 Urine Bilirubin Negative (NEGATIVE) 04/06/17 16:30 Urine Urobilinogen Negative mg/dL (0.2-1.0) 04/06/17 16:30 Urine RBC <1 /hpf (0-3) 04/06/17 16:30 Urine WBC 3 /hpf (3-5) 04/06/17 16:30 Ur Epithelial Cells Rare /hpf (FEW) 04/06/17 16:30 Urine Bacteria Rare /hpf (NONE SEEN) 04/06/17 16:30 Urine Mucus Rare 04/06/17 16:30 RPR Titer Nonreactive (NONREACTIVE) 04/06/17 07:30 Assessment: 04/07/17 09:05 WITHDRAWAL SYMPTOM Plan: CONTINUE DETOX
[2017-04-07] MEDS: cloNIDine HCL 0.1 MG TABLET PO SCH ×2 (10:07→23:59)
[2017-04-07] MEDS: PRENATAL VITAMINS W/ FOLIC ACID TABLET (FP) PO SCH (10:07)
[2017-04-07] MEDS: METHADONE HCL 5 MG TABLET (FOR DETOX USE ONLY) PO SCH (10:07)
[2017-04-07] MEDS: diazePAM 5 MG TABLET PO SCH ×2 (10:07→22:09)
[2017-04-07] MEDS: NICOTINE 21 MG/24 HOURS TOPICAL PATCH TD SCH (10:08)
[2017-04-07] MEDS: THIAMINE HCL 100 MG TABLET (FP) PO SCH (22:09)
[2017-04-08] MEDS: diazePAM 5 MG TABLET PO PRN ×4 (03:14→16:57)
[2017-04-08] MEDS: IBUPROFEN 400 MG TABLET (FP) PO PRN ×3 (03:14→22:24)
[2017-04-08] MEDS: AMOXICILLIN 500 MG CAPSULE (FP) PO SCH ×3 (06:13→22:22)
[2017-04-08] MEDS: METHADONE HCL 5 MG TABLET (FOR DETOX USE ONLY) PO SCH (10:02)
[2017-04-08] MEDS: cloNIDine HCL 0.1 MG TABLET PO SCH ×2 (10:02→22:22)
[2017-04-08] MEDS: diazePAM 5 MG TABLET PO SCH ×2 (10:02→22:22)
[2017-04-08] MEDS: NICOTINE 21 MG/24 HOURS TOPICAL PATCH TD SCH (10:02)
[2017-04-08] MEDS: PRENATAL VITAMINS W/ FOLIC ACID TABLET (FP) PO SCH (10:02)
--- NOTE | 2017-04-08 10:11 | PN ---
S Progress Note (SOAP) Subjective: alert,irritable,anxious,interrupted sleep,pain in the body Objective: 04/08/17 10:08 Last Vital Signs Temp Pulse Resp BP Pulse Ox 98.1 F 90 18 101/71 04/08/17 10:02 04/08/17 10:02 04/08/17 10:02 04/08/17 10:02 04/08/17 10:09 Assessment: withdrawal symptom Plan: continue detox,
[2017-04-08] MEDS: THIAMINE HCL 100 MG TABLET (FP) PO SCH (22:22)
[2017-04-09] MEDS: AMOXICILLIN 500 MG CAPSULE (FP) PO SCH ×2 (07:00→08:25)
[2017-04-09] MEDS ORDERED: METHADONE HCL 10 MG TABLET (FOR DETOX USE ONLY) PO SCH (10:00)
[2017-04-09] MEDS ORDERED: diazePAM 5 MG TABLET PO SCH (10:00)
[2017-04-09 10:16] VITALS: BP 111/51; PULSE 90; TEMP 97.9
[2017-04-09] MEDS: PRENATAL VITAMINS W/ FOLIC ACID TABLET (FP) PO SCH (10:33)
[2017-04-09] MEDS: cloNIDine HCL 0.1 MG TABLET PO SCH (10:33)
[2017-04-09] MEDS: NICOTINE 21 MG/24 HOURS TOPICAL PATCH TD SCH (10:33)
[2017-04-09] MEDS: IBUPROFEN 400 MG TABLET (FP) PO PRN (10:35)
--- NOTE | 2017-04-09 11:21 | PN ---
BHS Progress Note (SOAP) Subjective: ALERT,IRRITABLE,INTERRUPTED SLEEP Objective: 04/09/17 11:20 Vital Signs Temperature 97.9 F 04/09/17 10:15 Pulse Rate 90 04/09/17 10:15 Respiratory Rate 18 04/09/17 10:15 Blood Pressure 111/51 04/09/17 10:15 O2 Sat by Pulse Oximetry (%) Assessment: 04/09/17 11:20 WITHDRAWAL SYMPTOM Plan: CONTINUE DETOX
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
[2017-04-10] MEDS ORDERED: METHADONE HCL 5 MG TABLET (FOR DETOX USE ONLY) PO SCH (06:00)
== END 2017-04-09 11:25 | disposition home or self-care (01) | DRG 773 ==
LOC: YASAS 17:15 → Y6N 18:00
PROVIDERS: ADMIT Internal Medicine; ATTEND Internal Medicine
PROC: HZ2ZZZZ Detoxification Services for Substance Abuse Treatment (ICD-10-PCS; principal; 2017-04-05)
DX: F11.23 Opioid dependence with withdrawal (principal); F13.230 Sedative, hypnotic or anxiolytic dependence with withdrawal, uncomplicated; F17.210 Nicotine dependence, cigarettes, uncomplicated; F91.8 Other conduct disorders; I10 Essential (primary) hypertension; B18.2 Chronic viral hepatitis C; K08.89 Other specified disorders of teeth and supporting structures; K05.10 Chronic gingivitis, plaque induced; Z91.14 Patient's other noncompliance with medication regimen; Z86.69 Personal history of other diseases of the nervous system and sense organs
CPT/HCPCS: 36415; 80053; 81003; 81015; 85027; 86593; 93005; 93010

== ENCOUNTER 2017-08-09 10:22 | Inpatient (IN) | payer OTHER ==
[2017-08-09 10:31] VITALS: BMI 19.4
--- NOTE | 2017-08-09 10:40 | HP ---
COWS - Scale Resting Pulse: 1= [place] 81-100 Sweatin=Flushed/Facial Moisture Restless Observation: 3= Extraneous Movement Pupil Size: 2= Moderately Dilated Bone or Joint Aches: 2= Severe Diffuse Aches Runny Nose/ Eye Tearin= Runny Nose/Eyes GI Upset > 30mins: 3= Vomiting/Diarrhea Tremor Observation: 2= Slight Tremor Visible Yawning Observation: 2= >3x During Session Anxiety or Irritability: 2=Irritable/Anxious Goose Flesh Skin: 0=Smooth Skin COWS Score: 21 CIWA Score - CIWA Score Nausea/Vomitin Muscle Tremors: 3 Anxiety: 3 Agitation: 3 Paroxysmal Sweats: 2 Orientation: 0-Oriented Tacttile Disturbances: 2-Mild Itch/Numbness/Burn Auditory Disturbances: 2-Mild Harshness/Frighten Visual Disturbances: 2-Mild Sensitivity Headache: 2-Mild CIWA-Ar Total Score: 22 Admission ROS BHS - HPI Chief Complaint: I NEED HELP TO STOP USING HEROIN,XANAX AND COCAINE Allergies/Adverse Reactions: Allergies Allergy/AdvReac Type Severity Reaction Status Date / Time No Known Allergies Allergy Verified 08/09/17 10:28 History of Present Illness: THIS 31 YEARS OLD FEMALE WITH HEROIN,XANAX,COCAINE,PCP DEPENDENCE,SEEKING DETOX, WITHDRAWAL SYMPTOM,LAST DETOX [facility] 04/05/17 TO 04/09/17 NOT COMPLETED HEPATITIS C NICOTINE DEPENDENCE LONGEST PERIO OF SOBRIETY 10 YEARS Exam Limitations: No Limitations - Ebola screening Have you traveled outside of the country in the last 21 days: No (N) Have you had contact with anyone from an Ebola affected area: No Have you been sick,other than usual withdrawal symptoms: No Do you have a fever: No - Review of Systems Constitutional: Chills, Loss of Appetite, Malaise, Night Sweats, Changes in sleep, Weakness, Unintentional Wgt. Loss EENT: reports: Tearing, Nose Congestion Respiratory: reports: No Symptoms reported Cardiac: reports: No Symptoms Reported GI: reports: Diarrhea, Nausea, Vomiting, Abdominal cramping : reports: No Symptoms Reported Musculoskeletal: reports: Back Pain, Muscle Pain, Neck Pain, Joint Stiffness Neuro: reports: Seizure Endocrine: reports: No Symptoms Reported Hematology: reports: No Symptoms Reported Psychiatric: reports: No Sypmtoms Reported Patient History - Patient Medical History Hx Anemia: Yes (no med) Hx Asthma: No Hx Chronic Obstructive Pulmonary Disease (COPD): No Hx Cancer: No Hx Cardiac Disorders: No Hx Congestive Heart Failure: No Hx Hypertension: No Hx Hypercholesterolemia: No Hx Pacemaker: No HX Cerebrovascular Accident: No Hx Seizures: Yes (LAST 03/22) Hx Dementia: No Hx Diabetes: No Hx Gastrointestinal Disorders: No Hx Liver Disease: No Hx Genitourinary Disorders: No Hx Sexually Transmitted Disorders: No Hx Renal Disease (ESRD): No Hx Thyroid Disease: No Hx Human Immunodeficiency Virus (HIV): No (negative last 08/06/17) Hx Hepatitis C: Yes (no treatment ) Hx Depression: No Hx Suicide Attempt: No Hx Bipolar Disorder: No Hx Schizophrenia: No Other Medical History: NO SUICIDAL,NO HOMICIDAL,RESTLESS LEG SYNDROME - Patient Surgical History Past Surgical History: Yes Hx Neurologic Surgery: No Hx Cataract Extraction: No Hx Cardiac Surgery: No Hx Lung Surgery: No Hx Breast Surgery: No Hx Breast Biopsy: No Hx Abdominal Surgery: Yes () Hx Appendectomy: No Hx Cholecystectomy: No Hx Genitourinary Surgery: No Hx Section: Yes (2011) Hx Orthopedic Surgery: No Anesthesia Reaction: No - PPD History Previous Implant?: Yes Documented Results: Negative w/proof Date: 09/03/16 Results: 0 mm PPD to be Administered?: No - Reproductive History Patient is a Female of Child Bearing Age (11 -55 yrs old): Yes Patient : No - Smoking Cessation Smoking history: Current every day smoker Have you smoked in the past 12 months: Yes Aproximately how many cigarettes per day: 20 Hx Chewing Tobacco Use: No Initiated information on smoking cessation: Yes 'Breaking Loose' booklet given: 08/09/17 - Substance & Tx. History Hx Alcohol Use: No Hx Substance Use: Yes Substance Use Type: Cocaine, Heroin, Tranquilizers Hx Substance Use Treatment: Yes ([facility] 04/05/17 YO 04/09/17 NOT CONPLETED) - Substances Abused Heroin Route: Injection Frequency: Daily Amount used: 15 TO 20 BAGS Age of first use: 12 Date of Last Use: 08/09/17 Cocaine Route: Injection Frequency: Daily Amount used: 100$ Age of first use: 12 Date of Last Use: 08/09/17 Alprazolam (Xanax) Route: Oral Frequency: Daily Amount used: 8 MGS Age of first use: 12 Date of Last Use: 08/08/17 PCP Route: Smoking Frequency: 1-3 times last 30 days Amount used: 10$ Age of first use: 12 Date of Last Use: 08/07/17 Family Disease History - Family Disease History Family History: Denies Admission Physical Exam [facility] - Vital Signs Vital Signs: Vital Signs - 24 hr 08/09/17 10:29 Temperature 97.2 F L Pulse Rate 87 Respiratory 18 Rate Blood Pressure 121/71 - Physical General Appearance: Yes: Moderate Distress, Tremorous, Irritable, Sweating, Anxious HEENTM: Yes: Normal ENT Inspection, LEN, Pharynx Normal Respiratory: Yes: Lungs Clear, Normal Breath Sounds, No Respiratory Distress Neck: Yes: Within Normal Limits, Supple, Trachea in good position Breast: Yes: Breast Exam Deferred Cardiology: Yes: Within Normal Limits, Regular Rhythm, Regular Rate, S1, S2 Abdominal: Yes: Within Normal Limits, Normal Bowel Sounds, Non Tender, Flat, Soft Genitourinary: Yes: Within Normal Limits Back: Yes: Muscle Spasm Musculoskeletal: Yes: Within Normal Limits, full range of Motion, Back pain, Muscle Pain Extremities: Yes: Tremors Neurological: Yes: consumer loan manager II-XII NML intact, Fully Oriented, Alert, Motor Strength 5/5 Integumentary: Yes: Dry Lymphatic: Yes: Within Normal Limits - Diagnostic (1) Opioid dependence with withdrawal Current Visit: No Status: Acute (2) Cocaine dependence Current Visit: Yes Status: Acute (3) Uncomplicated sedative, hypnotic or anxiolytic withdrawal Current Visit: No Status: Acute (4) Nicotine dependence Current Visit: No Status: Chronic Qualifiers: Nicotine product type: cigarettes Substance use status: uncomplicated Qualified Code(s): F17.210 - Nicotine dependence, cigarettes, uncomplicated (5) PCP (phencyclidine) abuse Current Visit: Yes Status: Acute (6) Weight loss Current Visit: Yes Status: Acute (7) Restless leg syndrome Current Visit: Yes Status: Acute (8) Seizure Current Visit: Yes Status: Acute Cleared for Admission [facility] - Detox or Rehab [facility] Level of Care: Medically Managed Detox Regimen/Protocol: Methadone/Valium [facility] Breath Alcohol Content Breath Alcohol Content: 0 Urine Pregancy Test - Result Urine Test Results: Negative- NO Line Present Urine Drug Screen - Results Drug Screen Negative: No Urine Drug Screen Results: GISEL-Cocaine, OPI-Opiates, PCP-Phencyclidine, BZO- Benzodiazepines, OXY-Oxycodone
[2017-08-09] MEDS ORDERED: MAGNESIUM CITRATE 300 ML BOTTLE PO PRN (10:53)
[2017-08-09] MEDS ORDERED: diazePAM 5 MG TABLET PO ONE (10:53)
[2017-08-09] MEDS ORDERED: METHADONE HCL 10 MG TABLET (FOR DETOX USE ONLY) PO ONE ×2 (10:53→23:00)
[2017-08-09] MEDS ORDERED: ACETAMINOPHEN 325 MG TABLET (FP) PO PRN (10:53)
[2017-08-09] MEDS ORDERED: NICOTINE POLACRILEX 2 MG GUM BUC PRN (10:53)
[2017-08-09] MEDS ORDERED: P-EPHED 60MG/TRIPROLIDI 2.5MG TABLET PO PRN (10:53)
[2017-08-09] MEDS ORDERED: MENTHOL/PHENOL 1 EACH UD MM PRN (10:53)
[2017-08-09] MEDS ORDERED: LOPERAMIDE HCL 2 MG CAPSULE PO PRN (10:53)
[2017-08-09] MEDS ORDERED: MAGNESIUM HYDROX 2400MG/30ML ORAL SUSPENSION 30 ML CUP PO PRN (10:53)
[2017-08-09] MEDS ORDERED: hydrOXYzine PAMOATE 25 MG CAPSULE (FP) PO PRN (10:53)
[2017-08-09] MEDS ORDERED: MAG HYDROX/AL HYDROX/SIMETH 30 ML UNIT-DOSE CUP PO PRN (10:53)
[2017-08-09] MEDS ORDERED: guaiFENesin/D-METHORPHAN HB 10 ML UNIT-DOSE CUPS PO PRN (10:53)
[2017-08-09] MEDS: NICOTINE 21 MG/24 HOURS TOPICAL PATCH TD SCH (12:34)
--- NOTE | 2017-08-09 13:11 | EKG ---
Test Reason : Blood Pressure : / mmHG Vent. Rate : 066 BPM Atrial Rate : 066 BPM P-R Int : 114 ms QRS Dur : 070 ms QT Int : 412 ms P-R-T Axes : -15 057 059 degrees QTc Int : 431 ms NORMAL SINUS RHYTHM NORMAL ECG WHEN COMPARED WITH ECG OF 05-APR-2017 18:32, QT HAS SHORTENED CLINICAL CORRELATION IS RECOMMENDED BASELINE ARTIFACT Confirmed by UNRULY HALL, LINNEA ([id number]) on 08/09/2017 1:11:40 PM Referred By: Nicholas Rodriguez Confirmed By:LINNEA TOLLIVER MD
[2017-08-09] MEDS: CYCLOBENZAPRINE HCL 10 MG TABLET (FP) PO PRN (13:39)
[2017-08-09] MEDS: diazePAM 5 MG TABLET PO SCH ×2 (13:39→22:48)
[2017-08-09] MEDS: diazePAM 5 MG TABLET PO PRN (18:13)
[2017-08-09 19:44] LABS: URINE APPEARANCE CLEAR; URINE BILIRUBIN NEGATIVE (NEGATIVE); URINE BLOOD NEGATIVE (NEGATIVE); URINE COLOR STRAW; URINE GLUCOSE (UA) NEGATIVE (NEGATIVE); URINE KETONE NEGATIVE (NEGATIVE); URINE LEUK ESTERASE TRACE (NEGATIVE); URINE NITRITE NEGATIVE (NEGATIVE); URINE PROTEIN NEGATIVE (NEGATIVE); URINE UROBILINOGEN NEGATIVE mg/dL (0.2-1.0)
[2017-08-09 19:51] LABS: EPI CELLS RARE /HPF (FEW); URINE MUCUS RARE
[2017-08-09] MEDS: THIAMINE HCL 100 MG TABLET (FP) PO SCH (22:44)
[2017-08-09] MEDS: cloNIDine HCL 0.1 MG TABLET PO SCH (22:44)
[2017-08-09] MEDS: GABAPENTIN 400 MG CAPSULE (FP) PO SCH (22:47)
[2017-08-10] MEDS: diazePAM 5 MG TABLET PO SCH ×3 (06:23→22:20)
--- NOTE | 2017-08-10 07:41 | CONSULT ---
[facility] Psychiatric Consult - Data Date of interview: 08/10/17 Admission source: [facility] Identifying data: This is 31 years old female , single, with history of depression and anxiety, intoxicated with : PCP, Opiods, Nicotine and Benozodiazepins, Cocaine Substance Abuse History: Urine Drug Screen Results: GISEL-Cocaine, OPI-Opiates, PCP-Phencyclidine, BZO-Benzodiazepines, OXY-Oxycodone-. Smoking Cessation. Smoking history: Current every day smoker. Have you smoked in the past 12 months: Yes. Aproximately how many cigarettes per day: 20. Hx Chewing Tobacco Use: No. Initiated information on smoking cessation: Yes. 'Breaking Loose' booklet given: 08/09/17. - Substance & Tx. History. Hx Alcohol Use: No. Hx Substance Use: Yes. Substance Use Type: Cocaine, Heroin, Tranquilizers. Hx Substance Use Treatment: Yes ([facility] 04/05/17 Y[facility] 04/09/17 NOT CONPLETED). - Substances Abused. Heroin. Route: Injection. Frequency: Daily. Amount used: 15 TO 20 BAGS. Age of first use: 12. Date of Last Use: 08/09/17. Cocaine. Route: Injection. Frequency: Daily. Amount used: 100$. Age of first use: 12. Date of Last Use: 08/09/17. Alprazolam (Xanax). Route: Oral. Frequency: Daily. Amount used: 8 MGS. Age of first use: 12. Date of Last Use: 08/08/17. PCP. Route: Smoking. Frequency: 1-3 times last 30 days. Amount used: 10$. Age of first use: 12. Date of Last Use: 08/07/17 Medical History: Weight loss history Psychiatric History: Denies past psychiatric history Physical/Sexual Abuse/Trauma History: Denies, unclear Additional Comment: Observation. Detox Unit Care Protocol Mental Status Exam - Mental Status Exam Alert and Oriented to: Person Cognitive Function: Fair Patient Appearance: Unkempt Mood: Sad Affect: Flat Patient Behavior: Sedated Speech Pattern: Delayed Voice Loudness: Mildly Soft/Quiet Thought Process: Goal Oriented Thought Disorder: Being Controlled Hallucinations: Denies Suicidal Ideation: Denies Homicidal Ideation: Denies Insight/Judgement: Fair Sleep: Difficulty falling asleep Appetite: Fair Muscle strength/Tone: Normal Gait/Station: Shuffling Additional Comments: Observation. Detox Unit Care Protocol Psychiatric Findings - Problem List ([place] 1, 2,3) (1) Cocaine abuse Current Visit: Yes Status: Acute (2) Cocaine dependence Current Visit: Yes Status: Acute (3) PCP (phencyclidine) abuse Current Visit: Yes Status: Acute (4) Seizure Current Visit: Yes Status: Acute (5) Weight loss Current Visit: Yes Status: Acute (6) Drug-induced mood disorder Current Visit: No Status: Acute (7) Nicotine dependence Current Visit: No Status: Chronic Qualifiers: Nicotine product type: cigarettes Substance use status: uncomplicated Qualified Code(s): F17.210 - Nicotine dependence, cigarettes, uncomplicated - Initial Treatment Plan Initial Treatment Plan: Observation. Detox Unit Care Protocol
[2017-08-10] MEDS: diazePAM 5 MG TABLET PO PRN ×3 (08:27→20:39)
--- NOTE | 2017-08-10 09:10 | PN ---
S CIWA - CIWA Score Nausea/Vomitin-Mild Nausea/No Vomiting Muscle Tremors: 4-Moderate,w/Arms Extend Anxiety: 4-Mod. Anxious/Guarded Agitation: 4-Moderately Restless Paroxysmal Sweats: 1-Minimal Palms Moist Orientation: 0-Oriented Tacttile Disturbances: 1-Very Mild Itch/Numbness Auditory Disturbances: 0-None Visual Disturbances: 0-None Headache: 2-Mild CIWA-Ar Total Score: 17 BHS COWS - Scale Resting Pulse: 2= [place] 101-120 Sweatin= Chills/Flushing Restless Observation: 3= Extraneous Movement Pupil Size: 0= Normal to Room Light Bone or Joint Aches: 2= Severe Diffuse Aches Runny Nose/ Eye Tearin= Runny Nose/Eyes GI Upset > 30mins: 2= Nausea/Diarrhea Tremor Observation of Outstretched Hands: 2= Slight Tremor Visible Yawning Observation: 0= None Anxiety or Irritability: 2=Irritable/Anxious Goose Flesh Skin: 0=Smooth Skin COWS Score: 16 BHS Progress Note (SOAP) Subjective: sweat anxiety irritable tremor agitation joint aches GI distress Objective: 08/10/17 09:09 Vital Signs Temperature 99.1 F 08/10/17 06:28 Pulse Rate 92 H 08/10/17 06:28 Respiratory Rate 19 08/10/17 06:28 Blood Pressure 125/74 08/10/17 06:28 O2 Sat by Pulse Oximetry (%) Laboratory Last Values Urine Color Straw 08/09/17 18:30 Urine Appearance Clear 08/09/17 18:30 Urine pH 6.0 (5.0-8.0) 08/09/17 18:30 Ur Specific [place] 1.012 (1.001-1.035) 08/09/17 18:30 Urine Protein Negative (NEGATIVE) 08/09/17 18:30 Urine Glucose (UA) Negative (NEGATIVE) 08/09/17 18:30 Urine Ketones Negative (NEGATIVE) 08/09/17 18:30 Urine Blood Negative (NEGATIVE) 08/09/17 18:30 Urine Nitrite Negative (NEGATIVE) 08/09/17 18:30 Urine Bilirubin Negative (NEGATIVE) 08/09/17 18:30 Urine Urobilinogen Negative mg/dL (0.2-1.0) 08/09/17 18:30 Ur Leukocyte Esterase Trace (NEGATIVE) 08/09/17 18:30 Urine WBC (Auto) 1 /hpf (3-5) 08/09/17 18:30 Urine RBC (Auto) <1 /hpf (0-3) 08/09/17 18:30 Ur Epithelial Cells Rare /HPF (FEW) 08/09/17 18:30 Urine Mucus Rare 08/09/17 18:30 lab noted Assessment: 08/10/17 09:09 withdrawal sx Plan: continue detox
[2017-08-10 09:45] LABS: HEMATOCRIT 43.2 % (32.4-45.2); HEMOGLOBIN 13.7 GM/dL (10.7-15.3); MCH 25.1 pg (25.7-33.7); MCHC 31.6 g/dl (32.0-36.0); MEAN CELL VOLUME 79.4 fl (80-96); MEAN PLT VOLUME 7.5 fl (7.5-11.1); PLATELET COUNT 245 K/MM3 (134-434); RBC 5.45 M/mm3 (3.60-5.2); RDW 14.7 % (11.6-15.6); WHITE BLOOD COUNT 9.3 K/mm3 (4.0-10.0)
[2017-08-10] MEDS ORDERED: METHADONE HCL 10 MG TABLET (FOR DETOX USE ONLY) PO SCH (10:00)
[2017-08-10 10:05] LABS: ALBUMIN 3.9 g/dl (3.4-5.0); ANION GAP 9 (8-16); BLOOD UREA NITROGEN 16 mg/dL (7-18); CALCIUM 8.8 mg/dL (8.5-10.1); CHLORIDE 105 mmol/L (98-107); CO2 24 mmol/L (21-32); GLUCOSE,RANDOM 85 mg/dL (74-106); POTASSIUM 4.3 mmol/L (3.5-5.1); SODIUM 138 mmol/L (136-145)
[2017-08-10 10:10] LABS: ALK PHOS 93 U/L (45-117); BILIRUBIN,TOTAL 0.6 mg/dL (0.2-1.0); CREATININE 0.9 mg/dL (0.55-1.02); SGOT/AST 24 U/L (15-37); SGPT/ALT 49 U/L (12-78); TOT PROT 7.6 g/dl (6.4-8.2)
[2017-08-10] MEDS: cloNIDine HCL 0.1 MG TABLET PO SCH ×2 (10:30→22:19)
[2017-08-10] MEDS: GABAPENTIN 400 MG CAPSULE (FP) PO SCH ×2 (10:30→22:19)
[2017-08-10] MEDS: PRENATAL VITAMINS W/ FOLIC ACID TABLET (FP) PO SCH (10:30)
[2017-08-10] MEDS: NICOTINE 21 MG/24 HOURS TOPICAL PATCH TD SCH (10:31)
[2017-08-10] MEDS: IBUPROFEN 400 MG TABLET (FP) PO PRN (14:14)
[2017-08-10] MEDS: CYCLOBENZAPRINE HCL 10 MG TABLET (FP) PO PRN (16:30)
[2017-08-10] MEDS: THIAMINE HCL 100 MG TABLET (FP) PO SCH (22:19)
[2017-08-11] MEDS: diazePAM 5 MG TABLET PO PRN ×3 (02:16→14:11)
[2017-08-11] MEDS: IBUPROFEN 400 MG TABLET (FP) PO PRN ×2 (07:15→14:12)
[2017-08-11] MEDS ORDERED: diazePAM 5 MG TABLET PO SCH (10:00)
[2017-08-11] MEDS ORDERED: METHADONE HCL 5 MG TABLET (FOR DETOX USE ONLY) PO SCH (10:00)
[2017-08-11] MEDS ORDERED: METHOCARBAMOL 500 MG TABLET PO SCH (10:30)
--- NOTE | 2017-08-11 10:34 | PN ---
[facility] CIWA - CIWA Score Nausea/Vomitin-Mild Nausea/No Vomiting Muscle Tremors: 3 Anxiety: 3 Agitation: 3 Paroxysmal Sweats: 1-Minimal Palms Moist Orientation: 0-Oriented Tacttile Disturbances: 1-Very Mild Itch/Numbness Auditory Disturbances: 0-None Visual Disturbances: 0-None Headache: 0-None Present CIWA-Ar Total Score: 12 BHS COWS - Scale Resting Pulse: 2= [place] 101-120 Sweatin= Chills/Flushing Restless Observation: 1= Difficult to Sit Still Pupil Size: 0= Normal to Room Light Bone or Joint Aches: 2= Severe Diffuse Aches Runny Nose/ Eye Tearin= Nasal Congestion GI Upset > 30mins: 2= Nausea/Diarrhea Tremor Observation of Outstretched Hands: 2= Slight Tremor Visible Yawning Observation: 0= None Anxiety or Irritability: 2=Irritable/Anxious Goose Flesh Skin: 0=Smooth Skin COWS Score: 13 BHS Progress Note (SOAP) Subjective: joint ache diarrhea sweat irritable agitation anxiety reports flexeril not working Objective: 08/11/17 10:38 Vital Signs Temperature 97.9 F 08/11/17 06:00 Pulse Rate 77 08/11/17 06:00 Respiratory Rate 18 08/11/17 06:00 Blood Pressure 109/64 08/11/17 06:00 O2 Sat by Pulse Oximetry (%) Laboratory Last Values WBC 9.3 K/mm3 (4.0-10.0) D 08/10/17 07:00 RBC 5.45 M/mm3 (3.60-5.2) H 08/10/17 07:00 Hgb 13.7 GM/dL (10.7-15.3) D 08/10/17 07:00 Hct 43.2 % (32.4-45.2) 08/10/17 07:00 MCV 79.4 fl (80-96) L 08/10/17 07:00 MCH 25.1 pg (25.7-33.7) L 08/10/17 07:00 MCHC 31.6 g/dl (32.0-36.0) L 08/10/17 07:00 RDW 14.7 % (11.6-15.6) 08/10/17 07:00 Plt Count 245 K/MM3 (134-434) 08/10/17 07:00 MPV 7.5 fl (7.5-11.1) 08/10/17 07:00 Sodium 138 mmol/L (136-145) 08/10/17 07:00 Potassium 4.3 mmol/L (3.5-5.1) 08/10/17 07:00 Chloride 105 mmol/L (98-107) 08/10/17 07:00 Carbon Dioxide 24 mmol/L (21-32) 08/10/17 07:00 Anion Gap 9 (8-16) 08/10/17 07:00 BUN 16 mg/dL (7-18) 08/10/17 07:00 Creatinine 0.9 mg/dL (0.55-1.02) 08/10/17 07:00 Creat Clearance w eGFR > 60 (>60) 08/10/17 07:00 Random Glucose 85 mg/dL (74-106) 08/10/17 07:00 Calcium 8.8 mg/dL (8.5-10.1) 08/10/17 07:00 Total Bilirubin 0.6 mg/dL (0.2-1.0) 08/10/17 07:00 AST 24 U/L (15-37) 08/10/17 07:00 ALT 49 U/L (12-78) 08/10/17 07:00 Alkaline Phosphatase 93 U/L (45-117) 08/10/17 07:00 Total Protein 7.6 g/dl (6.4-8.2) 08/10/17 07:00 Albumin 3.9 g/dl (3.4-5.0) 08/10/17 07:00 Urine Color Straw 08/09/17 18:30 Urine Appearance Clear 08/09/17 18:30 Urine pH 6.0 (5.0-8.0) 08/09/17 18:30 Ur Specific [place] 1.012 (1.001-1.035) 08/09/17 18:30 Urine Protein Negative (NEGATIVE) 08/09/17 18:30 Urine Glucose (UA) Negative (NEGATIVE) 08/09/17 18:30 Urine Ketones Negative (NEGATIVE) 08/09/17 18:30 Urine Blood Negative (NEGATIVE) 08/09/17 18:30 Urine Nitrite Negative (NEGATIVE) 08/09/17 18:30 Urine Bilirubin Negative (NEGATIVE) 08/09/17 18:30 Urine Urobilinogen Negative mg/dL (0.2-1.0) 08/09/17 18:30 Ur Leukocyte Esterase Trace (NEGATIVE) 08/09/17 18:30 Urine WBC (Auto) 1 /hpf (3-5) 08/09/17 18:30 Urine RBC (Auto) <1 /hpf (0-3) 08/09/17 18:30 Ur Epithelial Cells Rare /HPF (FEW) 08/09/17 18:30 Urine Mucus Rare 08/09/17 18:30 RPR Titer Nonreactive (NONREACTIVE) 08/10/17 07:00 lab noted Assessment: 08/11/17 10:39 withdrawal sx 08/11/17 10:39 joint aches Plan: continue detox discontinue flexeril begin robaxin 500 ml q8h
[2017-08-11] MEDS: PRENATAL VITAMINS W/ FOLIC ACID TABLET (FP) PO SCH (10:52)
[2017-08-11] MEDS: GABAPENTIN 400 MG CAPSULE (FP) PO SCH (10:53)
[2017-08-11] MEDS: cloNIDine HCL 0.1 MG TABLET PO SCH (10:53)
[2017-08-11] MEDS: NICOTINE 21 MG/24 HOURS TOPICAL PATCH TD SCH (11:06)
[2017-08-11 15:15] VITALS: BP 108/56; PULSE 96; TEMP 96.1
--- NOTE | 2017-08-11 16:18 | DS ---
[facility] Detox Discharge Summary Admission Date: 08/09/17 Discharge Date: 08/11/17 - History Present History: Opioid Dependence Pertinent Past History: patient wants to leave the detox facility because the methadone dosage is tapping down, discuss methadone medication assisted program as treatment option for opiate misuse, encourage the patient take the advantage on supportive care patient insists to leave the detox facility - Physical Exam Results Vital Signs: Vital Signs Temperature 96.1 F L 08/11/17 15:14 Pulse Rate 96 H 08/11/17 15:14 Respiratory Rate 18 08/11/17 15:14 Blood Pressure 108/56 08/11/17 15:14 O2 Sat by Pulse Oximetry (%) Pertinent Admission Physical Exam Findings: withdrawal sx Laboratory Last Values WBC 9.3 K/mm3 (4.0-10.0) D 08/10/17 07:00 RBC 5.45 M/mm3 (3.60-5.2) H 08/10/17 07:00 Hgb 13.7 GM/dL (10.7-15.3) D 08/10/17 07:00 Hct 43.2 % (32.4-45.2) 08/10/17 07:00 MCV 79.4 fl (80-96) L 08/10/17 07:00 MCH 25.1 pg (25.7-33.7) L 08/10/17 07:00 MCHC 31.6 g/dl (32.0-36.0) L 08/10/17 07:00 RDW 14.7 % (11.6-15.6) 08/10/17 07:00 Plt Count 245 K/MM3 (134-434) 08/10/17 07:00 MPV 7.5 fl (7.5-11.1) 08/10/17 07:00 Sodium 138 mmol/L (136-145) 08/10/17 07:00 Potassium 4.3 mmol/L (3.5-5.1) 08/10/17 07:00 Chloride 105 mmol/L (98-107) 08/10/17 07:00 Carbon Dioxide 24 mmol/L (21-32) 08/10/17 07:00 Anion Gap 9 (8-16) 08/10/17 07:00 BUN 16 mg/dL (7-18) 08/10/17 07:00 Creatinine 0.9 mg/dL (0.55-1.02) 08/10/17 07:00 Creat Clearance w eGFR > 60 (>60) 08/10/17 07:00 Random Glucose 85 mg/dL (74-106) 08/10/17 07:00 Calcium 8.8 mg/dL (8.5-10.1) 08/10/17 07:00 Total Bilirubin 0.6 mg/dL (0.2-1.0) 08/10/17 07:00 AST 24 U/L (15-37) 08/10/17 07:00 ALT 49 U/L (12-78) 08/10/17 07:00 Alkaline Phosphatase 93 U/L (45-117) 08/10/17 07:00 Total Protein 7.6 g/dl (6.4-8.2) 08/10/17 07:00 Albumin 3.9 g/dl (3.4-5.0) 08/10/17 07:00 Urine Color Straw 08/09/17 18:30 Urine Appearance Clear 08/09/17 18:30 Urine pH 6.0 (5.0-8.0) 08/09/17 18:30 Ur Specific [place] 1.012 (1.001-1.035) 08/09/17 18:30 Urine Protein Negative (NEGATIVE) 08/09/17 18:30 Urine Glucose (UA) Negative (NEGATIVE) 08/09/17 18:30 Urine Ketones Negative (NEGATIVE) 08/09/17 18:30 Urine Blood Negative (NEGATIVE) 08/09/17 18:30 Urine Nitrite Negative (NEGATIVE) 08/09/17 18:30 Urine Bilirubin Negative (NEGATIVE) 08/09/17 18:30 Urine Urobilinogen Negative mg/dL (0.2-1.0) 08/09/17 18:30 Ur Leukocyte Esterase Trace (NEGATIVE) 08/09/17 18:30 Urine WBC (Auto) 1 /hpf (3-5) 08/09/17 18:30 Urine RBC (Auto) <1 /hpf (0-3) 08/09/17 18:30 Ur Epithelial Cells Rare /HPF (FEW) 08/09/17 18:30 Urine Mucus Rare 08/09/17 18:30 RPR Titer Nonreactive (NONREACTIVE) 08/10/17 07:00 lab noted - Treatment Hospital Course: Detox Protocol Followed, Responded well Patient has Accepted a Rehab Referral to: as per counselor arranged - Medication Discharge Medications: Ambulatory Orders Gabapentin [Neurontin -] 800 mg PO BID #90 capsule 09/01/16 cloNIDine HCL [Catapres -] 0.3 mg PO BID 08/09/17 - AMA Did Patient Leave Against Medical Advice: Yes
[2017-08-13] MEDS ORDERED: METHADONE HCL 10 MG TABLET (FOR DETOX USE ONLY) PO SCH (10:00)
[2017-08-13] MEDS ORDERED: diazePAM 5 MG TABLET PO SCH (10:00)
[2017-08-14] MEDS ORDERED: METHADONE HCL 5 MG TABLET (FOR DETOX USE ONLY) PO SCH (06:00)
== END 2017-08-11 15:51 | disposition left against medical advice (07) | DRG 770 ==
LOC: YASAS 10:22 → Y6N 11:40
PROVIDERS: ADMIT Internal Medicine; ATTEND Internal Medicine
PROC: HZ2ZZZZ Detoxification Services for Substance Abuse Treatment (ICD-10-PCS; principal; 2017-08-09)
DX: F11.23 Opioid dependence with withdrawal (principal); F13.230 Sedative, hypnotic or anxiolytic dependence with withdrawal, uncomplicated; F14.20 Cocaine dependence, uncomplicated; F16.10 Hallucinogen abuse, uncomplicated; F17.210 Nicotine dependence, cigarettes, uncomplicated; F19.24 Other psychoactive substance dependence with psychoactive substance-induced mood disorder; G40.909 Epilepsy, unspecified, not intractable, without status epilepticus; G25.81 Restless legs syndrome; Z87.898 Personal history of other specified conditions; Z59.0 Homelessness
CPT/HCPCS: 36415; 80053; 81003; 81015; 85027; 86593; 93005; 93010; J0735

== ENCOUNTER 2018-06-02 15:21 | Inpatient (IN) | payer OTHER ==
[2018-06-02 18:03] VITALS: BMI 19.0
--- NOTE | 2018-06-02 21:29 | HP ---
CIWA Score Nausea/Vomitin Muscle Tremors: 3 Anxiety: 2 Agitation: 2 Paroxysmal Sweats: 1-Minimal Palms Moist Orientation: 0-Oriented Tacttile Disturbances: 0-None Auditory Disturbances: 0-None Visual Disturbances: 0-None Headache: 2-Mild CIWA-Ar Total Score: 12 - Admission Criteria [facility] Guidelines: Admission for Medically Managed Detox: Requires at least one of the followin. CIWA greater than 12 2. Seizures within the past 24 hours 3. Delirium tremens within the past 24 hours 4. Hallucinations within the past 24 hours 5. Acute intervention needed for co occurring medical disorder 6. Acute intervention needed for co occurring psychiatric disorder 7. Severe withdrawal that cannot be handled at a lower level of care (continued vomiting, continued diarrhea, abnormal vital signs) requiring intravenous medication and/or fluids 8. Patient presents the following: CIWA greater than 12 Admission Criteria Met: Admission criteria met Admission ROS [facility] Chief Complaint: I am here for to detox from alcohol, benzo's, cocaine and heroin". Allergies/Adverse Reactions: Allergies Allergy/AdvReac Type Severity Reaction Status Date / Time No Known Allergies Allergy Verified 06/02/18 18:46 History of Present Illness: Pt was here in detox in 08/2017 and then pt states she relapsed within a few days Pt has not been prescribed any substances- she buys them illicitly from the streets. Pt is not diagnosed with any medical problems-pt is on neurtontin for pain- but has not had this prescribed in the last 2 months Utox: cocaine, Fen, mop, MTD, Bar, Benzo. Exam Limitations: No Limitations - Ebola screening Have you traveled outside of the country in the last 21 days: No Have you had contact with anyone from an Ebola affected area: No Have you been sick,other than usual withdrawal symptoms: No Do you have a fever: No - Review of Systems Constitutional: No Symptoms Reported EENT: reports: No Symptoms Reported Respiratory: reports: No Symptoms reported Cardiac: reports: No Symptoms Reported GI: reports: No Symptoms Reported : reports: No Symptoms Reported Musculoskeletal: reports: No Symptoms Reported Integumentary: reports: No Symptoms Reported Neuro: reports: No Symptoms reported Endocrine: reports: No Symptoms Reported Hematology: reports: No Symptoms Reported Psychiatric: reports: No Sypmtoms Reported Other Systems: Reviewed and Negative Patient History - Patient Medical History Hx Anemia: Yes (no med) Hx Asthma: No Hx Chronic Obstructive Pulmonary Disease (COPD): No Hx Cancer: No Hx Cardiac Disorders: No Hx Congestive Heart Failure: No Hx Hypertension: No Hx Hypercholesterolemia: No Hx Pacemaker: No HX Cerebrovascular Accident: No Hx Seizures: Yes (LAST 03/22) Hx Dementia: No Hx Diabetes: No Hx Gastrointestinal Disorders: No Hx Liver Disease: No Hx Genitourinary Disorders: No Hx Sexually Transmitted Disorders: No Hx Renal Disease (ESRD): No Hx Thyroid Disease: No Hx Human Immunodeficiency Virus (HIV): No (negative last 08/06/17) Hx Hepatitis C: Yes (no treatment ) Hx Depression: No Hx Suicide Attempt: No Hx Bipolar Disorder: No Hx Schizophrenia: No - Patient Surgical History Past Surgical History: Yes Hx Neurologic Surgery: No Hx Cataract Extraction: No Hx Cardiac Surgery: No Hx Lung Surgery: No Hx Breast Surgery: No Hx Breast Biopsy: No Hx Abdominal Surgery: Yes () Hx Appendectomy: No Hx Cholecystectomy: No Hx Genitourinary Surgery: No Hx Section: Yes (2011) Hx Orthopedic Surgery: No Anesthesia Reaction: No - PPD History Date: 09/03/16 Results: 0 mm - Reproductive History LMP comment: 3 years ago Patient : No - Smoking Cessation Smoking history: Current every day smoker Have you smoked in the past 12 months: Yes Aproximately how many cigarettes per day: 10 Hx Chewing Tobacco Use: No Initiated information on smoking cessation: Yes 'Breaking Loose' booklet given: 06/02/18 - Substance & Tx. History Substance Use Type: Alcohol, Cocaine, Heroin, Opiates Hx Substance Use Treatment: Yes (pt has been to multiple detoxes- last one 2 months ago) - Substances Abused Heroin Route: Injection Frequency: Daily Amount used: 2 bundles Age of first use: 14 Date of Last Use: 06/02/18 Alcohol Route: Oral Frequency: Daily Amount used: 2/4O Age of first use: 12 Date of Last Use: 06/01/18 Alprazolam (Xanax) Route: Oral Frequency: Daily Amount used: 2 STICKS Age of first use: 12 Date of Last Use: 06/01/18 Benzodiazepine (Klonopin) Route: Oral Frequency: Daily Amount used: 2/2MG Age of first use: 12 Date of Last Use: 11/27/18 Family Disease History - Family Disease History Family History: Denies (pt denies) Admission Physical Exam BHS - Vital Signs Vital Signs: Vital Signs - 24 hr 06/02/18 17:59 Temperature 98.0 F Pulse Rate 75 Respiratory 18 Rate Blood Pressure 117/70 - Physical General Appearance: Yes: Within Normal Limits HEENTM: Yes: Within Normal Limits, EOMI, Normocephalic, LEN Respiratory: Yes: Within Normal Limits Neck: Yes: Within Normal Limits Cardiology: Yes: Within Normal Limits Abdominal: Yes: Within Normal Limits Genitourinary: Yes: Within Normal Limits Back: Yes: Within Normal Limits Musculoskeletal: Yes: Within Normal Limits Extremities: Yes: Within Normal Limits Neurological: Yes: Within Normal Limits Integumentary: Yes: Within Normal Limits Lymphatic: Yes: Within Normal Limits BHS Breath Alcohol Content Breath Alcohol Content: 0 Urine Pregancy Test - Result Urine Test Results: Negative- NO Line Present Urine Drug Screen - Results Drug Screen Negative: No Urine Drug Screen Results: GISEL-Cocaine, OPI-Opiates, BAR-Barbiturates, BZO- Benzodiazepines, MTD-Methadone, FEN-Fentanyl
[2018-06-02] MEDS ORDERED: ACETAMINOPHEN 325 MG TABLET (FP) PO PRN (21:38)
[2018-06-02] MEDS ORDERED: hydrOXYzine PAMOATE 25 MG CAPSULE (FP) PO PRN (21:38)
[2018-06-02] MEDS ORDERED: MAGNESIUM CITRATE 300 ML BOTTLE PO PRN (21:38)
[2018-06-02] MEDS ORDERED: MAG HYDROX/AL HYDROX/SIMETH 30 ML UNIT-DOSE CUP PO PRN (21:38)
[2018-06-02] MEDS ORDERED: IBUPROFEN 400 MG TABLET (FP) PO PRN (21:38)
[2018-06-02] MEDS ORDERED: LOPERAMIDE HCL 2 MG CAPSULE PO PRN (21:38)
[2018-06-02] MEDS ORDERED: guaiFENesin/D-METHORPHAN HB 10 ML UNIT-DOSE CUPS PO PRN (21:38)
[2018-06-02] MEDS ORDERED: MAGNESIUM HYDROX 2400MG/30ML ORAL SUSPENSION 30 ML CUP PO PRN (21:38)
[2018-06-02] MEDS ORDERED: P-EPHED 60MG/TRIPROLIDI 2.5MG TABLET PO PRN (21:38)
[2018-06-02] MEDS ORDERED: MENTHOL/PHENOL 1 EACH UD MM PRN (21:38)
[2018-06-02] MEDS ORDERED: MELATONIN 5 MG TABLETS PO PRN (22:00)
[2018-06-02] MEDS ORDERED: THIAMINE HCL 100 MG TABLET (FP) PO SCH (22:00)
[2018-06-02] MEDS ORDERED: chlordiazePOXIDE HCL 25 MG CAPSULE PO PRN (23:00)
[2018-06-02] MEDS: cloNIDine HCL 0.1 MG TABLET PO SCH (23:30)
[2018-06-02] MEDS: chlordiazePOXIDE HCL 25 MG CAPSULE PO SCH (23:30)
[2018-06-03] MEDS: cloNIDine HCL 0.1 MG TABLET PO SCH (06:06)
[2018-06-03] MEDS: chlordiazePOXIDE HCL 25 MG CAPSULE PO SCH ×2 (06:06→10:25)
[2018-06-03] MEDS ORDERED: METHADONE HCL 10 MG TABLET ONE (09:36)
[2018-06-03] MEDS ORDERED: METHADONE HCL 40 MG DISPERSABLE TABLET ONE (09:36)
[2018-06-03 09:45] VITALS: BP 105/58; PULSE 67; TEMP 97
[2018-06-03] MEDS ORDERED: NICOTINE 21 MG/24 HOURS TOPICAL PATCH TD SCH (10:00)
[2018-06-03] MEDS ORDERED: PRENATAL VITAMINS W/ FOLIC ACID TABLET (FP) PO SCH (10:00)
[2018-06-03] MEDS ORDERED: METHADONE HCL 10 MG TABLET PO ONE (10:00)
[2018-06-03] MEDS ORDERED: METHADONE 80 MG, METHADONE 10 MG PO ONE (10:00)
--- NOTE | 2018-06-03 10:17 | PN ---
S CIWA - CIWA Score Nausea/Vomitin-Mild Nausea/No Vomiting Muscle Tremors: 3 Anxiety: 4-Mod. Anxious/Guarded Agitation: 3 Paroxysmal Sweats: 1-Minimal Palms Moist Orientation: 1-Uncertain about Date Tacttile Disturbances: 0-None Auditory Disturbances: 0-None Visual Disturbances: 0-None Headache: 0-None Present CIWA-Ar Total Score: 13 BHS Progress Note (SOAP) Subjective: anxiety restlessness tremor sweat body aches question about valium vs librium for alcohol withdrawal sx patient received first dose methadone 90 mg around 10 am today Objective: 06/03/18 10:20 Vital Signs Temperature 97.0 F L 06/03/18 09:44 Pulse Rate 67 06/03/18 09:44 Respiratory Rate 18 06/03/18 09:44 Blood Pressure 105/58 L 06/03/18 09:44 O2 Sat by Pulse Oximetry (%) 06/03/18 10:21 lab pending Assessment: 06/03/18 10:21 withdrawal sx Plan: continue detox
[2018-06-03 10:38] LABS: HEMATOCRIT 39.6 % (32.4-45.2); HEMOGLOBIN 12.4 GM/dL (10.7-15.3); MCH 25.6 pg (25.7-33.7); MCHC 31.2 g/dl (32.0-36.0); PLATELET COUNT 204 K/MM3 (134-434); RBC 4.83 M/mm3 (3.60-5.2); RDW 15.4 % (11.6-15.6); WHITE BLOOD COUNT 7.6 K/mm3 (4.0-10.0)
[2018-06-03 11:00] LABS: ALBUMIN 3.4 g/dl (3.4-5.0); ALK PHOS 86 U/L (45-117); ANION GAP 9 MMOL/L (8-16); BILIRUBIN,TOTAL 0.4 mg/dL (0.2-1); BLOOD UREA NITROGEN 21 mg/dL (7-18); CALCIUM 8.5 mg/dL (8.5-10.1); CHLORIDE 106 mmol/L (98-107); CO2 25 mmol/L (21-32); CREATININE 0.9 mg/dL (0.55-1.3); GLUCOSE,RANDOM 125 mg/dL (74-106); POTASSIUM 4.4 mmol/L (3.5-5.1); SGOT/AST 32 U/L (15-37); SGPT/ALT 38 U/L (13-61); SODIUM 140 mmol/L (136-145); TOT PROT 6.9 g/dl (6.4-8.2)
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
[2018-06-03] MEDS ORDERED: chlordiazePOXIDE HCL 25 MG CAPSULE PO SCH (23:00)
[2018-06-04] MEDS ORDERED: METHADONE 80 MG, METHADONE 10 MG PO SCH (06:00)
[2018-06-04] MEDS ORDERED: METHADONE HCL 10 MG TABLET PO SCH (06:00)
[2018-06-04] MEDS ORDERED: chlordiazePOXIDE 5 MG CAPSULE PO SCH (23:00)
[2018-06-05] MEDS ORDERED: chlordiazePOXIDE HCL 10 MG CAPSULE PO SCH (23:00)
== END 2018-06-03 13:53 | disposition left against medical advice (07) | DRG 773 ==
LOC: YASAS 15:21 → Y6N 19:20
PROC: HZ2ZZZZ Detoxification Services for Substance Abuse Treatment (ICD-10-PCS; principal; 2018-06-02)
DX: F10.230 Alcohol dependence with withdrawal, uncomplicated (principal); F13.230 Sedative, hypnotic or anxiolytic dependence with withdrawal, uncomplicated; F14.20 Cocaine dependence, uncomplicated; F11.20 Opioid dependence, uncomplicated; F17.210 Nicotine dependence, cigarettes, uncomplicated; F19.24 Other psychoactive substance dependence with psychoactive substance-induced mood disorder; I10 Essential (primary) hypertension; B18.2 Chronic viral hepatitis C; R63.4 Abnormal weight loss; Z68.1 Body mass index [BMI] 19.9 or less, adult; Z86.69 Personal history of other diseases of the nervous system and sense organs; Z59.0 Homelessness
CPT/HCPCS: 36415; 80053; 85027; 86593; J0735

== ENCOUNTER 2019-04-11 14:18 | Inpatient (IN) | payer OTHER ==
[2019-04-11 18:06] VITALS: BMI 18.3
--- NOTE | 2019-04-11 19:11 | HP ---
CIWA Score Nausea/Vomitin-Mild Nausea/No Vomiting Muscle Tremors: 3 Anxiety: 2 Agitation: 2 Paroxysmal Sweats: 2 Orientation: 1-Uncertain about Date Tacttile Disturbances: 0-None Auditory Disturbances: 0-None Visual Disturbances: 0-None Headache: 2-Mild CIWA-Ar Total Score: 13 - Admission Criteria OASAS Guidelines: Admission for Medically Managed Detox: Requires at least one of the followin. CIWA greater than 12 2. Seizures within the past 24 hours 3. Delirium tremens within the past 24 hours 4. Hallucinations within the past 24 hours 5. Acute intervention needed for co occurring medical disorder 6. Acute intervention needed for co occurring psychiatric disorder 7. Severe withdrawal that cannot be handled at a lower level of care (continued vomiting, continued diarrhea, abnormal vital signs) requiring intravenous medication and/or fluids 8. Patient presents the following: CIWA greater than 12 Admission Criteria Met: Admission criteria met Admitting History and Physical - Smoking History Smoking history: Current every day smoker Have you smoked in the past 12 months: Yes Aproximately how many cigarettes per day: 10 - Alcohol/Substance Use Hx Alcohol Use: No Admission ROS [facility] Chief Complaint: Casie Colbert is a 33 year old female presenting for alcohol and benzodiazepine abuse. Allergies/Adverse Reactions: Allergies Allergy/AdvReac Type Severity Reaction Status Date / Time No Known Allergies Allergy Verified 04/11/19 17:53 History of Present Illness: Casie Colbert is a 33 year old female presenting for alcohol and benzodiazepine abuse. Alcohol: 1/5 of hard alcohol per day. Daily drinker. Last drink was 3AM on morning of admission. Has a history of withdrawal seizures, blackouts. Last seizure one year prior, noted to be likely withdrawal seizure. Denies falls and head hits. Longest period of sobriety: 10.5 years. Family and life stressors caused relapse. Benzodiazepines: 2-6 Klopnin (2mg), 2-4 sticks of Xanax (2mg), daily. Obtains drugs from multiple dealers. MDMA: occasional user Cocaine: once weekly Heroin: last use one month prior. previously used 2 bundles/day. Endorses IVDU. Has a history of abscess. Has a history of overdose. Had a Narcan kit. Currently on methadone program. uses clean needles obtaining for needle exchange. Methadone program through [facility], last dose 130mg taken 04/11/19. Has been to detox and rehab in the past. Plans after detox are to go to rehab. Medical History: seizure disorder (formally on Keppra, has not taken in years), hx of Hep C (active), HTN Surgical History: L ankle surgery (2019), (x1) Psychiatric: depression, anxiety Smokin/2-1ppd. Social: homeless. [place] [address]. Panhandles to obtain benzo and alcohol. Utox: GISEL, MTD, BZO, MDMA DOMINGA: 0.000 Will be admitted for alcohol and benzodiazepine withdrawal in the setting of previous withdrawal seizures. Exam Limitations: No Limitations - Ebola screening Have you traveled outside of the country in the last 21 days: No (N) Have you had contact with anyone from an Ebola affected area: No Do you have a fever: No - Review of Systems Constitutional: Chills, Loss of Appetite EENT: reports: Nose Congestion Respiratory: reports: Other (hiccups) Cardiac: reports: Palpitations GI: reports: Diarrhea, Nausea : reports: No Symptoms Reported Musculoskeletal: reports: Other (L ankle pain) Integumentary: reports: No Symptoms Reported Neuro: reports: Headache, Tingling Endocrine: reports: No Symptoms Reported Hematology: reports: No Symptoms Reported Psychiatric: reports: Agitated, Anxious Patient History - Patient Medical History Hx Anemia: Yes (no med) Hx Asthma: No Hx Chronic Obstructive Pulmonary Disease (COPD): No Hx Cancer: No Hx Cardiac Disorders: No Hx Congestive Heart Failure: No Hx Hypertension: No Hx Hypercholesterolemia: No Hx Pacemaker: No HX Cerebrovascular Accident: No Hx Seizures: Yes (LAST 08/23) Hx Dementia: No Hx Diabetes: No Hx Gastrointestinal Disorders: No Hx Liver Disease: No Hx Genitourinary Disorders: No Hx Sexually Transmitted Disorders: No Hx Renal Disease (ESRD): No Hx Thyroid Disease: No Hx Human Immunodeficiency Virus (HIV): No (negative last 08/06/17) Hx Hepatitis C: Yes (no treatment ) Hx Depression: No Hx Suicide Attempt: No Hx Bipolar Disorder: No Hx Schizophrenia: No - Patient Surgical History Past Surgical History: Yes Hx Neurologic Surgery: No Hx Cataract Extraction: No Hx Cardiac Surgery: No Hx Lung Surgery: No Hx Breast Surgery: No Hx Breast Biopsy: No Hx Abdominal Surgery: Yes () Hx Appendectomy: No Hx Cholecystectomy: No Hx Genitourinary Surgery: No Hx Section: Yes (2011) Hx Orthopedic Surgery: Yes (L ankle fx repair) Anesthesia Reaction: No - PPD History Previous Implant?: Yes Documented Results: Negative w/o proof Implanted On Prior [facility] Admission?: Yes Date: 06/04/18 Results: 0 mm PPD to be Administered?: No - Reproductive History Patient is a Female of Child Bearing Age (11 -55 yrs old): Yes Last Menstrual Period: 04/05/16 Patient : No - Smoking Cessation Smoking history: Current every day smoker Have you smoked in the past 12 months: Yes Aproximately how many cigarettes per day: 10 Hx Chewing Tobacco Use: No Initiated information on smoking cessation: Yes 'Breaking Loose' booklet given: 04/11/19 - Substance & Tx. History Hx Alcohol Use: Yes Hx Substance Use: Yes Substance Use Type: Alcohol, Cocaine, Heroin, Opiates - Substances abused Alcohol Substance route: Oral Frequency: Daily Amount used: 07/10 of Vodka Age of first use: 12 Date of last use: 04/10/19 Alprazolam (Xanax) Substance route: Oral Frequency: Daily Amount used: 2 bars Age of first use: 12 Date of last use: 04/10/19 Benzodiazepine (Klonopin) Substance route: Oral Frequency: 3-6 times per week Amount used: 2-6 pills of 2mg Age of first use: 12 Date of last use: 04/10/19 Admission Physical Exam [facility] - Vital Signs Vital Signs: Vital Signs - 24 hr 04/11/19 18:02 Temperature 97.7 F Pulse Rate 70 Respiratory 16 Rate Blood Pressure 138/88 - Physical General Appearance: Yes: Disheveled, Mild Distress HEENTM: Yes: EOMI, Normocephalic, Normal Voice, LEN, Pharynx Normal Respiratory: Yes: Chest Non-Tender, Lungs Clear, Normal Breath Sounds, No Respiratory Distress, No Accessory Muscle Use Neck: Yes: No masses,lesions,Nodules, Trachea in good position Breast: Yes: Breast Exam Deferred Cardiology: Yes: Regular Rhythm, Regular Rate, S1, S2 Abdominal: Yes: Normal Bowel Sounds, Non Tender, Flat, Soft Genitourinary: Yes: Within Normal Limits Back: Yes: Normal Inspection Musculoskeletal: Yes: full range of Motion Extremities: Yes: Normal Capillary Refill, Other (Noted lesion of MEDIAL side of L ankle wrapped with bandage, shallow stage 2 ulcer s/p ankle fx surgery and revision.) Neurological: Yes: research microbiologist II-XII NML intact, Fully Oriented, Alert, Motor Strength 5/5 Integumentary: Yes: Normal Color, Dry, Warm, Track Evans (noted on bilateral arms) - Diagnostic (1) Methadone maintenance therapy patient Current Visit: Yes Status: Acute (2) Alcohol dependence with uncomplicated withdrawal Current Visit: No Status: Acute (3) Cocaine abuse Current Visit: No Status: Acute (4) Heroin use Current Visit: No Status: Acute (5) Klonopin use disorder, mild, abuse Current Visit: No Status: Acute (6) Nicotine dependence Current Visit: No Status: Acute Qualifiers: Nicotine product type: cigarettes Substance use status: in withdrawal Qualified Code(s): F17.213 - Nicotine dependence, cigarettes, with withdrawal (7) Seizure Current Visit: No Status: Acute (8) Hepatitis C Current Visit: No Status: Chronic Qualifiers: Viral hepatitis chronicity: chronic Hepatic coma status: without hepatic coma Qualified Code(s): B18.2 - Chronic viral hepatitis C (9) Hypertension Current Visit: No Status: Chronic Qualifiers: Hypertension type: essential hypertension Qualified Code(s): I10 - Essential (primary) hypertension Breathalyzer - Breathalyzer Breathalyzer: 0 Urine Drug Screen - Test Device Lot number: [id number] Expiration date: 12/03/20 - Control Is test valid?: Yes - Results Drug screen NEGATIVE: No Urine drug screen results: GISEL-Cocaine, MTD-Methadone, BZO-Benzodiazepines, MDMA -Ecstasy Inpatient Rehab Admission - Rehab Decision to Admit Inpatient rehab admission?: No
--- NOTE | 2019-04-11 19:59 | PN ---
Teaching Attending Note Name of Resident: Geoffrey Anthony ATTENDING PHYSICIAN STATEMENT I saw and evaluated the patient. I reviewed the resident's note and discussed the case with the resident. I agree with the resident's findings and plan as documented. SUBJECTIVE: 33 yo with alcohol and benzo use disorder OBJECTIVE: Vital Signs - 24 hr 04/11/19 18:02 Temperature 97.7 F Pulse Rate 70 Respiratory 16 Rate Blood Pressure 138/88 tremulous ASSESSMENT AND PLAN: Alcohol and benzo use disorder- valium detox
[2019-04-11] MEDS ORDERED: MAGNESIUM CITRATE 300 ML BOTTLE PO PRN (20:01)
[2019-04-11] MEDS ORDERED: MAG HYDROX/AL HYDROX/SIMETH 30 ML UNIT-DOSE CUP PO PRN (20:01)
[2019-04-11] MEDS ORDERED: ACETAMINOPHEN 325 MG TABLET (FP) PO PRN ×2 (20:01)
[2019-04-11] MEDS ORDERED: hydrOXYzine PAMOATE 25 MG CAPSULE (FP) PO PRN (20:01)
[2019-04-11] MEDS ORDERED: BISMUTH SUBSALICYLATE 524 MG/30 ML UD PO PRN (20:01)
[2019-04-11] MEDS ORDERED: MAGNESIUM HYDROX 2400MG/30ML ORAL SUSPENSION 30 ML CUP PO PRN (20:01)
[2019-04-11] MEDS ORDERED: MENTHOL/PHENOL 1 EACH UD MM PRN (20:01)
[2019-04-11] MEDS ORDERED: NICOTINE POLACRILEX 2 MG GUM BUC PRN (20:01)
[2019-04-11] MEDS ORDERED: MELATONIN 5 MG TABLETS PO PRN (20:01)
[2019-04-11] MEDS ORDERED: IBUPROFEN 400 MG TABLET (FP) PO PRN (20:01)
[2019-04-11] MEDS: diazePAM 5 MG TABLET PO PRN (20:35)
[2019-04-11] MEDS: GABAPENTIN 400 MG CAPSULE (FP) PO SCH (22:24)
[2019-04-11] MEDS: diazePAM 5 MG TABLET PO SCH (22:24)
[2019-04-11] MEDS: THIAMINE HCL 100 MG TABLET (FP) PO SCH (22:25)
[2019-04-11] MEDS: cloNIDine HCL 0.1 MG TABLET PO SCH (23:11)
[2019-04-12] MEDS ORDERED: METHADONE HCL 10 MG TABLET PO SCH (06:00)
[2019-04-12] MEDS: diazePAM 5 MG TABLET PO SCH ×3 (06:57→22:00)
[2019-04-12] MEDS: GABAPENTIN 400 MG CAPSULE (FP) PO SCH ×3 (06:57→22:00)
--- NOTE | 2019-04-12 07:45 | CONSULT ---
[facility] Psychiatric Consult - Data Date of interview: 04/12/19 Admission source: Self-referred Identifying data: Ms Colbert is a 33 years old single female, mother of an 8 years old son, unemployed with no source of income, homeless seeking detox treatment for alcohol and benzodiazepine Substance Abuse History: Reports history of alcohol, klonopin and xanax use. Refer to addiction counselor's summary for further information Medical History: Significant for hypertension, hepatitis C, seizure disorder, history of anemia, and orthosurgery for fracture left ankle. Patient is on methadone 130 mg/day from [facility]. Smokes 10 cigarettes daily Psychiatric History: Reports that her first psychiatric contact was approximately 4 years ago when she was admitted to [facility] for depression. She said that she was there for 2 weeks and was prescribed Gabapentin and Prozac. Reports a second hospitalization 3 weeks ago at [place] for depression and prescribed Gabapentin and another medication. Claims she did not go to any follow up nor taking any medication after discharge since she was referred to a assisted. At present, feels very irritable and reports feeling depressed Physical/Sexual Abuse/Trauma History: No history elicited on this domain Mental Status Exam - Mental Status Exam Alert and Oriented to: Time, Place, Person Cognitive Function: Fair Patient Appearance: Well Groomed Mood: Irritable Affect: Appropriate Patient Behavior: Uncooperative Speech Pattern: Clear Voice Loudness: Normal Thought Process: Intact, Goal Oriented Thought Disorder: Not Present Hallucinations: Denies Suicidal Ideation: Denies Homicidal Ideation: Denies Insight/Judgement: Poor Sleep: Well Appetite: Good Muscle strength/Tone: Normal Gait/Station: Normal Psychiatric Findings - Problem List ([place] 1, 2,3) (1) Depressive disorder Current Visit: Yes Status: Chronic (2) Substance induced mood disorder Current Visit: Yes Status: Acute (3) Alcohol dependence with uncomplicated withdrawal Current Visit: No Status: Acute (4) Uncomplicated sedative, hypnotic or anxiolytic withdrawal Current Visit: No Status: Acute (5) Opioid dependence on agonist therapy Current Visit: Yes Status: Chronic (6) Nicotine dependence Current Visit: No Status: Chronic Qualifiers: Nicotine product type: cigarettes Substance use status: in withdrawal Qualified Code(s): F17.213 - Nicotine dependence, cigarettes, with withdrawal (7) Seizure disorder Current Visit: Yes Status: Chronic (8) Hepatitis C Current Visit: No Status: Chronic Qualifiers: Viral hepatitis chronicity: chronic Hepatic coma status: without hepatic coma Qualified Code(s): B18.2 - Chronic viral hepatitis C (9) Hypertension Current Visit: No Status: Chronic Qualifiers: Hypertension type: essential hypertension Qualified Code(s): I10 - Essential (primary) hypertension - Initial Treatment Plan Initial Treatment Plan: Continue inpatient detoxification
[2019-04-12] MEDS: cloNIDine HCL 0.1 MG TABLET PO SCH ×2 (09:00→22:34)
[2019-04-12] MEDS ORDERED: BACITRACIN 0.9 GM PACKET TP SCH (10:00)
[2019-04-12 10:16] LABS: BILIRUBIN,TOTAL 0.3 mg/dL (0.2-1); BLOOD UREA NITROGEN 19.3 mg/dL (7-18); CALCIUM 9.3 mg/dL (8.5-10.1); CREATININE 0.8 mg/dL (0.55-1.3); POTASSIUM 4.1 mmol/L (3.5-5.1)
[2019-04-12 10:18] LABS: HEMATOCRIT 42.2 % (32.4-45.2); HEMOGLOBIN 13.8 GM/dL (10.7-15.3); MCHC 32.6 g/dl (32.0-36.0); MEAN CELL VOLUME 79.8 fl (80-96); MEAN PLT VOLUME 7.6 fl (7.5-11.1); PLATELET COUNT 356 K/MM3 (134-434); RBC 5.29 M/mm3 (3.60-5.2); RDW 16.4 % (11.6-15.6)
[2019-04-12] MEDS ORDERED: METHADONE HCL 10 MG TABLET PO ONE (10:28)
[2019-04-12] MEDS ORDERED: METHADONE 120 MG, METHADONE 10 MG PO ONE (10:45)
[2019-04-12] MEDS ORDERED: METHADONE HCL 40 MG DISPERSABLE TABLET ONE (11:02)
[2019-04-12] MEDS ORDERED: METHADONE HCL 10 MG TABLET ONE (11:02)
[2019-04-12] MEDS: PRENATAL VITAMINS W/ FOLIC ACID TABLET (FP) PO SCH (11:06)
[2019-04-12] MEDS: diazePAM 5 MG TABLET PO PRN (11:06)
--- NOTE | 2019-04-12 12:43 | PN ---
S CIWA - CIWA Score Nausea/Vomitin-No Nausea/No Vomiting Muscle Tremors: 3 Anxiety: 3 Agitation: 3 Paroxysmal Sweats: 2 Orientation: 0-Oriented Tacttile Disturbances: 0-None Auditory Disturbances: 0-None Visual Disturbances: 0-None Headache: 0-None Present CIWA-Ar Total Score: 11 S Progress Note (SOAP) Subjective: sweats shakes body aches irritable restless Objective: 04/12/19 12:43 Vital Signs Temperature 98.1 F 04/12/19 09:21 Pulse Rate 74 04/12/19 09:21 Respiratory Rate 16 04/12/19 09:21 Blood Pressure 100/50 L 04/12/19 09:21 O2 Sat by Pulse Oximetry (%) Laboratory Tests 04/12/19 04/12/19 04/12/19 08:00 08:00 08:00 WBC 11.0 H RBC 5.29 H Hgb 13.8 Hct 42.2 MCV 79.8 L MCH 26.0 MCHC 32.6 RDW 16.4 H Plt Count 356 D MPV 7.6 Sodium 138 Potassium 4.1 Chloride 101 Carbon Dioxide 30 Anion Gap 7 L BUN 19.3 H Creatinine 0.8 Est GFR (CKD-EPI)AfAm 110.70 Est GFR (CKD-EPI)NonAf 95.52 Random Glucose 97 Calcium 9.3 Total Bilirubin 0.3 AST 14 L ALT 29 Alkaline Phosphatase 100 Total Protein 8.0 Albumin 4.0 RPR Titer Nonreactive labs noted aaox3 ambulating no acute distress Assessment: 04/12/19 12:43 withdrawals Plan: continue detox increase fluids
[2019-04-12] MEDS ORDERED: BACITRACIN 15 GM TUBE TOPICAL OINTMENT TP SCH (15:15)
[2019-04-12] MEDS: THIAMINE HCL 100 MG TABLET (FP) PO SCH (22:00)
[2019-04-13] MEDS ORDERED: METHADONE HCL 10 MG TABLET ONE (05:05)
[2019-04-13] MEDS ORDERED: METHADONE HCL 40 MG DISPERSABLE TABLET ONE (05:05)
[2019-04-13] MEDS: METHADONE 120 MG, METHADONE 10 MG PO SCH (05:50)
[2019-04-13] MEDS: diazePAM 5 MG TABLET PO SCH ×2 (05:50→19:20)
[2019-04-13] MEDS: GABAPENTIN 400 MG CAPSULE (FP) PO SCH ×3 (05:50→22:34)
[2019-04-13] MEDS ORDERED: METHADONE HCL 40 MG DISPERSABLE TABLET PO SCH (06:00)
[2019-04-13] MEDS ORDERED: SILVER SULFADIAZINE 1% TOP CREAM 50 GM JAR TP SCH (10:00)
[2019-04-13] MEDS: diazePAM 5 MG TABLET PO PRN (10:27)
[2019-04-13] MEDS: PRENATAL VITAMINS W/ FOLIC ACID TABLET (FP) PO SCH (10:27)
[2019-04-13] MEDS: cloNIDine HCL 0.1 MG TABLET PO SCH ×2 (10:27→22:33)
--- NOTE | 2019-04-13 12:41 | PN ---
S CIWA - CIWA Score Nausea/Vomitin-No Nausea/No Vomiting Muscle Tremors: 1-None Visible, but [place] Anxiety: 2 Agitation: 2 Paroxysmal Sweats: No Perspiration Orientation: 0-Oriented Tacttile Disturbances: 0-None Auditory Disturbances: 0-None Visual Disturbances: 0-None Headache: 0-None Present CIWA-Ar Total Score: 5 B[facility] Progress Note (SOAP) Subjective: anxiety restless Objective: 04/13/19 12:40 Vital Signs Temperature 98.1 F 04/13/19 10:18 Pulse Rate 72 04/13/19 10:18 Respiratory Rate 18 04/13/19 10:18 Blood Pressure 120/79 04/13/19 10:18 O2 Sat by Pulse Oximetry (%) Laboratory Tests 04/12/19 04/12/19 04/12/19 08:00 08:00 08:00 WBC 11.0 H RBC 5.29 H Hgb 13.8 Hct 42.2 MCV 79.8 L MCH 26.0 MCHC 32.6 RDW 16.4 H Plt Count 356 D MPV 7.6 Sodium 138 Potassium 4.1 Chloride 101 Carbon Dioxide 30 Anion Gap 7 L BUN 19.3 H Creatinine 0.8 Est GFR (CKD-EPI)AfAm 110.70 Est GFR (CKD-EPI)NonAf 95.52 Random Glucose 97 Calcium 9.3 Total Bilirubin 0.3 AST 14 L ALT 29 Alkaline Phosphatase 100 Total Protein 8.0 Albumin 4.0 RPR Titer Nonreactive labs noted aaox3 ambulating no acute distress Assessment: 04/13/19 12:40 mild withdrawals Plan: continue detox d/c in am
[2019-04-13] MEDS ORDERED: BACITRACIN 15 GM TUBE TOPICAL OINTMENT TP SCH (12:45)
--- NOTE | 2019-04-13 12:46 | PN ---
S Progress Note (SOAP) Subjective: wound care to attend to Objective: 04/13/19 12:42 right ankle wound noted Assessment: 04/13/19 12:45 2.5x1.5cm to right side of ankle and 1x1cm to left side of ankle. good granulating noted, no s/s of infection, no purulent odor noted. serous sanguineous with yellow exudate noted on dressing. pt denies any pain to area. Plan: cleanse wound daily with N/S apply bacitracin oint and cover with 4x4 and wrap with kerlex. pt encouraged to keep leg elevated cane provided
[2019-04-13] MEDS ORDERED: BACITRACIN 0.9 GM PACKET TP SCH (13:59)
[2019-04-13] MEDS: THIAMINE HCL 100 MG TABLET (FP) PO SCH (22:34)
[2019-04-14] MEDS ORDERED: METHADONE HCL 10 MG TABLET ONE (05:22)
[2019-04-14] MEDS ORDERED: METHADONE HCL 40 MG DISPERSABLE TABLET ONE (05:22)
[2019-04-14] MEDS: METHADONE 120 MG, METHADONE 10 MG PO SCH (06:00)
[2019-04-14] MEDS ORDERED: diazePAM 5 MG TABLET PO ONE (06:00)
[2019-04-14] MEDS: GABAPENTIN 400 MG CAPSULE (FP) PO SCH (06:01)
[2019-04-14] MEDS: diazePAM 5 MG TABLET PO PRN (08:32)
[2019-04-14] MEDS: PRENATAL VITAMINS W/ FOLIC ACID TABLET (FP) PO SCH (09:56)
[2019-04-14] MEDS: cloNIDine HCL 0.1 MG TABLET PO SCH (09:56)
--- NOTE | 2019-04-14 12:01 | DS ---
[facility] Detox Discharge Summary Admission Date: 04/11/19 Discharge Date: 04/14/19 - History Present History: Sedative Dependence, MMTP - Physical Exam Results Vital Signs: Vital Signs Temperature 98.1 F 04/14/19 09:42 Pulse Rate 90 04/14/19 09:42 Respiratory Rate 16 04/14/19 09:42 Blood Pressure 115/80 04/14/19 09:42 O2 Sat by Pulse Oximetry (%) Pertinent Admission Physical Exam Findings: pt arrived in withdrawals Vital Signs Temperature 98.1 F 04/14/19 09:42 Pulse Rate 90 04/14/19 09:42 Respiratory Rate 16 04/14/19 09:42 Blood Pressure 115/80 04/14/19 09:42 O2 Sat by Pulse Oximetry (%) Laboratory Tests 04/12/19 04/12/19 04/12/19 08:00 08:00 08:00 WBC 11.0 H RBC 5.29 H Hgb 13.8 Hct 42.2 MCV 79.8 L MCH 26.0 MCHC 32.6 RDW 16.4 H Plt Count 356 D MPV 7.6 Sodium 138 Potassium 4.1 Chloride 101 Carbon Dioxide 30 Anion Gap 7 L BUN 19.3 H Creatinine 0.8 Est GFR (CKD-EPI)AfAm 110.70 Est GFR (CKD-EPI)NonAf 95.52 Random Glucose 97 Calcium 9.3 Total Bilirubin 0.3 AST 14 L ALT 29 Alkaline Phosphatase 100 Total Protein 8.0 Albumin 4.0 RPR Titer Nonreactive today pt is aaox3 ambulating with cane no acute distress - Treatment Hospital Course: Detox Protocol Followed, Detoxed Safely, Responded well, Discharged Condition Good, Rehab Referral Accepted Patient has Accepted a Rehab Referral to: referred to [facility] rehab - Medication Discharge Medications: Ambulatory Orders cloNIDine HCL [Catapres -] 0.3 mg PO BID 08/09/17 Gabapentin [Neurontin -] 800 mg PO TID 04/11/19 - Diagnosis (1) Methadone maintenance therapy patient Current Visit: Yes Status: Chronic (2) Substance induced mood disorder Current Visit: Yes Status: Acute (3) Depressive disorder Current Visit: Yes Status: Chronic (4) Seizure disorder Current Visit: Yes Status: Chronic (5) Cocaine dependence Current Visit: Yes Status: Chronic Qualifiers: Substance use status: uncomplicated Qualified Code(s): F14.20 - Cocaine dependence, uncomplicated (6) Seizure Current Visit: No Status: Suspected (7) Uncomplicated sedative, hypnotic or anxiolytic withdrawal Current Visit: Yes Status: Chronic (8) Hepatitis C Current Visit: Yes Status: Chronic Qualifiers: Viral hepatitis chronicity: chronic Hepatic coma status: without hepatic coma Qualified Code(s): B18.2 - Chronic viral hepatitis C (9) Hypertension Current Visit: Yes Status: Chronic Qualifiers: Hypertension type: essential hypertension Qualified Code(s): I10 - Essential (primary) hypertension (10) Nicotine dependence Current Visit: Yes Status: Chronic Qualifiers: Nicotine product type: cigarettes Substance use status: uncomplicated Qualified Code(s): F17.210 - Nicotine dependence, cigarettes, uncomplicated (11) Drug-induced mood disorder Current Visit: No Status: Suspected - AMA Did Patient Leave Against Medical Advice: No
[2019-04-14 12:56] VITALS: BP 95/53; PULSE 70; TEMP 98.4
== END 2019-04-14 13:00 | disposition other institution (70) | DRG 773 ==
LOC: YASAS 14:18 → Y6N 20:10
PROVIDERS: ADMIT Allergy & Immunology; ATTEND Allergy & Immunology
PROC: HZ2ZZZZ Detoxification Services for Substance Abuse Treatment (ICD-10-PCS; principal; 2019-04-11)
DX: F10.230 Alcohol dependence with withdrawal, uncomplicated (principal); F11.20 Opioid dependence, uncomplicated; F13.230 Sedative, hypnotic or anxiolytic dependence with withdrawal, uncomplicated; F14.20 Cocaine dependence, uncomplicated; F17.210 Nicotine dependence, cigarettes, uncomplicated; F19.24 Other psychoactive substance dependence with psychoactive substance-induced mood disorder; F32.9 Major depressive disorder, single episode, unspecified; I10 Essential (primary) hypertension; D64.9 Anemia, unspecified; G40.909 Epilepsy, unspecified, not intractable, without status epilepticus; B18.2 Chronic viral hepatitis C; S91.001A Unspecified open wound, right ankle, initial encounter; X58.XXXA Exposure to other specified factors, initial encounter; Y93.89 Activity, other specified; Y92.89 Other specified places as the place of occurrence of the external cause; Y99.8 Other external cause status; Z59.0 Homelessness
CPT/HCPCS: 36415; 80053; 85027; 86593; J0735

== ENCOUNTER 2019-04-14 11:42 | Inpatient (IN) | payer OTHER ==
[2019-04-14] MEDS ORDERED: P-EPHED 60MG/TRIPROLIDI 2.5MG TABLET PO PRN (14:53)
[2019-04-14] MEDS ORDERED: MAG HYDROX/AL HYDROX/SIMETH 30 ML UNIT-DOSE CUP PO PRN (14:53)
[2019-04-14] MEDS ORDERED: ACETAMINOPHEN 325 MG TABLET (FP) PO PRN (14:53)
[2019-04-14] MEDS ORDERED: guaiFENesin 200 MG/10 ML 10 ML UNIT-DOSE CUPS PO PRN (14:53)
[2019-04-14] MEDS ORDERED: LOPERAMIDE HCL 2 MG CAPSULE PO PRN (14:53)
[2019-04-14] MEDS ORDERED: MAGNESIUM HYDROX 2400MG/30ML ORAL SUSPENSION 30 ML CUP PO PRN (14:53)
[2019-04-14] MEDS ORDERED: MAGNESIUM CITRATE 300 ML BOTTLE PO PRN (14:53)
[2019-04-14] MEDS ORDERED: hydrOXYzine PAMOATE 50 MG CAPSULE (FP) PO PRN (14:53)
[2019-04-14] MEDS ORDERED: MENTHOL/PHENOL 1 EACH UD MM PRN (14:53)
--- NOTE | 2019-04-14 14:53 | HP ---
[facility] Rehab Assess/Revision - Admission History Admitted to Rehab from: [address] - Vital signs Vital Signs: Vital Signs Period Temp Pulse Resp BP Sys/Pena Pulse Ox Last 24 Hr 98.4 F 62 16 92/58 - Findings Detox History & Physical reviewed: Yes Concur with findings: Yes Inpatient Rehab Admission - Rehab Decision to Admit Inpatient rehab admission?: Yes - Initial Determination Are CD services needed?: Yes Free of communicable disease: Yes Not in need of hospitalization: Yes - Rehab Admission Criteria Previous failed treatment: Yes Poor recovery environment: Yes Comorbidities: Yes Lacks judgement: Yes Patient is meeting Inpatient Rehab admission criteria:: Yes
[2019-04-14] MEDS: cloNIDine HCL 0.1 MG TABLET PO SCH (21:32)
[2019-04-14] MEDS: THIAMINE HCL 100 MG TABLET (FP) PO SCH (21:32)
[2019-04-14] MEDS: GABAPENTIN 400 MG CAPSULE (FP) PO SCH (21:32)
[2019-04-15] MEDS ORDERED: METHADONE HCL 40 MG DISPERSABLE TABLET ONE (04:10)
[2019-04-15] MEDS ORDERED: METHADONE HCL 10 MG TABLET ONE (04:10)
[2019-04-15] MEDS ORDERED: METHADONE HCL 40 MG DISPERSABLE TABLET PO SCH (06:00)
[2019-04-15] MEDS: METHADONE 120 MG, METHADONE 10 MG PO SCH (06:25)
[2019-04-15] MEDS: GABAPENTIN 400 MG CAPSULE (FP) PO SCH ×3 (06:26→21:12)
[2019-04-15] MEDS: NICOTINE 21 MG/24 HOURS TOPICAL PATCH TD SCH (10:05)
[2019-04-15] MEDS: PRENATAL VITAMINS W/ FOLIC ACID TABLET (FP) PO SCH (10:05)
[2019-04-15] MEDS: BACITRACIN 15 GM TUBE TOPICAL OINTMENT TP SCH (10:06)
[2019-04-15] MEDS: cloNIDine HCL 0.1 MG TABLET PO SCH ×2 (10:59→21:13)
[2019-04-15] MEDS ORDERED: PT OWN MED DRAWER 7, Y5N ONE (15:21)
[2019-04-15] MEDS: MELATONIN 5 MG TABLETS PO PRN (21:13)
[2019-04-15] MEDS: THIAMINE HCL 100 MG TABLET (FP) PO SCH (21:13)
[2019-04-16] MEDS ORDERED: METHADONE HCL 10 MG TABLET ONE (06:15)
[2019-04-16] MEDS ORDERED: METHADONE HCL 40 MG DISPERSABLE TABLET ONE (06:16)
[2019-04-16] MEDS: METHADONE 120 MG, METHADONE 10 MG PO SCH (06:38)
[2019-04-16] MEDS: GABAPENTIN 400 MG CAPSULE (FP) PO SCH ×3 (06:38→21:13)
[2019-04-16] MEDS: PRENATAL VITAMINS W/ FOLIC ACID TABLET (FP) PO SCH (09:55)
[2019-04-16] MEDS: cloNIDine HCL 0.1 MG TABLET PO SCH ×2 (09:56→21:13)
[2019-04-16] MEDS: BACITRACIN 15 GM TUBE TOPICAL OINTMENT TP SCH (09:56)
[2019-04-16] MEDS: NICOTINE POLACRILEX 4 MG GUM BUC PRN (09:56)
[2019-04-16] MEDS: NICOTINE 21 MG/24 HOURS TOPICAL PATCH TD SCH (09:56)
[2019-04-16] MEDS: THIAMINE HCL 100 MG TABLET (FP) PO SCH (21:13)
[2019-04-16] MEDS: MELATONIN 5 MG TABLETS PO PRN (21:13)
[2019-04-17] MEDS ORDERED: METHADONE HCL 10 MG TABLET ONE (05:57)
[2019-04-17] MEDS ORDERED: METHADONE HCL 40 MG DISPERSABLE TABLET ONE (05:58)
[2019-04-17] MEDS: GABAPENTIN 400 MG CAPSULE (FP) PO SCH ×3 (08:39→22:01)
[2019-04-17] MEDS: METHADONE 120 MG, METHADONE 10 MG PO SCH (08:39)
[2019-04-17] MEDS: PRENATAL VITAMINS W/ FOLIC ACID TABLET (FP) PO SCH (09:58)
[2019-04-17] MEDS: cloNIDine HCL 0.1 MG TABLET PO SCH ×2 (09:58→22:02)
[2019-04-17] MEDS: NICOTINE 21 MG/24 HOURS TOPICAL PATCH TD SCH (09:59)
[2019-04-17] MEDS: BACITRACIN 15 GM TUBE TOPICAL OINTMENT TP SCH (09:59)
[2019-04-17] MEDS: IBUPROFEN 400 MG TABLET (FP) PO PRN (14:12)
[2019-04-17] MEDS ORDERED: PT OWN MED DRAWER 7, Y5N ONE (21:11)
[2019-04-17] MEDS: THIAMINE HCL 100 MG TABLET (FP) PO SCH (22:02)
[2019-04-17] MEDS: MELATONIN 5 MG TABLETS PO PRN (22:03)
[2019-04-18] MEDS ORDERED: METHADONE HCL 10 MG TABLET ONE (05:53)
[2019-04-18] MEDS ORDERED: METHADONE HCL 40 MG DISPERSABLE TABLET ONE (05:54)
[2019-04-18] MEDS: METHADONE 120 MG, METHADONE 10 MG PO SCH (08:39)
[2019-04-18] MEDS: GABAPENTIN 400 MG CAPSULE (FP) PO SCH ×3 (08:39→21:41)
[2019-04-18] MEDS ORDERED: PT OWN MED DRAWER 7, Y5N ONE (09:03)
[2019-04-18] MEDS: PRENATAL VITAMINS W/ FOLIC ACID TABLET (FP) PO SCH (09:46)
[2019-04-18] MEDS: NICOTINE POLACRILEX 4 MG GUM BUC PRN (09:46)
[2019-04-18] MEDS: NICOTINE 21 MG/24 HOURS TOPICAL PATCH TD SCH (09:59)
[2019-04-18] MEDS: BACITRACIN 15 GM TUBE TOPICAL OINTMENT TP SCH (09:59)
[2019-04-18] MEDS: THIAMINE HCL 100 MG TABLET (FP) PO SCH (21:41)
[2019-04-19] MEDS ORDERED: METHADONE HCL 10 MG TABLET ONE (04:03)
[2019-04-19] MEDS ORDERED: METHADONE HCL 40 MG DISPERSABLE TABLET ONE (04:03)
[2019-04-19] MEDS: METHADONE 120 MG, METHADONE 10 MG PO SCH (06:31)
[2019-04-19] MEDS: GABAPENTIN 400 MG CAPSULE (FP) PO SCH ×3 (06:33→22:05)
[2019-04-19] MEDS: PRENATAL VITAMINS W/ FOLIC ACID TABLET (FP) PO SCH (09:14)
[2019-04-19] MEDS: cloNIDine HCL 0.1 MG TABLET PO PRN (09:14)
[2019-04-19] MEDS: BACITRACIN 15 GM TUBE TOPICAL OINTMENT TP SCH (09:15)
[2019-04-19] MEDS: NICOTINE 21 MG/24 HOURS TOPICAL PATCH TD SCH (09:15)
[2019-04-19] MEDS: IBUPROFEN 400 MG TABLET (FP) PO PRN (09:42)
--- NOTE | 2019-04-19 10:54 | PN ---
[facility] Progress Note Note: Pt is a 33 y/o female with a hx of alcohol, bnzo and heroin dependence and on Methadone 130 mg po daily maintenance admitted to rehab on 04/14/19 after detoxing on . Nurses on the unit [facility] during rounds brought attention to this patient's clonidine order of 0.3 mg po tid and the trend of her vital signs especially low BP for past days(see below). On review of pt's admission H/P and outside pharmacy yesterday,no hx of HTN and no clonidine posted. Medication is currently not verifiable and no known reason for staying on clonidine. Vital Signs (72 hours) 04/16/19 04/17/19 04/17/19 21:30 00:30 03:30 Temperature Pulse Rate Respiratory 17 17 Rate Blood Pressure 118/70 04/17/19 04/17/19 04/18/19 07:31 09:29 00:30 Temperature 97.8 F Pulse Rate 91 H 73 Respiratory 18 17 Rate Blood Pressure 86/56 L 126/63 04/18/19 04/18/19 04/18/19 03:30 07:05 09:15 Temperature 97.7 F LPulse Rate 67 69 Respiratory 17 18 Rate Blood Pressure 86/55 L 103/67 04/18/19 04/18/19 04/18/19 10:00 11:53 23:38 Temperature Pulse Rate 68 65 64 Respiratory 18 Rate Blood Pressure 101/65 85/54 L 96/64 04/19/19 04/19/19 04/19/19 00:30 03:30 06:41 Temperature 97.8 F Pulse Rate 60 Respiratory 16 16 16 Rate Blood Pressure 102/71 04/19/19 09:14 Temperature Pulse Rate 73 Respiratory 17 Rate Blood Pressure 112/72 A/P low BP Keep pt on clonidine 0.1 mg po bid prn with vital signs parameters as directed. will speak to pt re:low blood pressure effects of this medication and need to follow up with primary care for medical management if needed.
[2019-04-19] MEDS: THIAMINE HCL 100 MG TABLET (FP) PO SCH (22:06)
[2019-04-20] MEDS ORDERED: METHADONE HCL 10 MG TABLET ONE (04:03)
[2019-04-20] MEDS ORDERED: METHADONE HCL 40 MG DISPERSABLE TABLET ONE (04:04)
[2019-04-20] MEDS: METHADONE 120 MG, METHADONE 10 MG PO SCH (06:42)
[2019-04-20] MEDS: GABAPENTIN 400 MG CAPSULE (FP) PO SCH ×3 (06:43→21:32)
[2019-04-20] MEDS: NICOTINE 21 MG/24 HOURS TOPICAL PATCH TD SCH (09:28)
[2019-04-20] MEDS: BACITRACIN 15 GM TUBE TOPICAL OINTMENT TP SCH (09:28)
[2019-04-20] MEDS: PRENATAL VITAMINS W/ FOLIC ACID TABLET (FP) PO SCH (09:28)
[2019-04-20] MEDS: cloNIDine HCL 0.1 MG TABLET PO PRN (09:28)
[2019-04-20] MEDS: NICOTINE POLACRILEX 4 MG GUM BUC PRN (09:29)
[2019-04-20] MEDS: THIAMINE HCL 100 MG TABLET (FP) PO SCH (21:31)
[2019-04-20] MEDS ORDERED: PT OWN MED DRAWER 7, Y5N ONE (22:22)
[2019-04-21] MEDS ORDERED: METHADONE HCL 10 MG TABLET ONE (04:12)
[2019-04-21] MEDS ORDERED: METHADONE HCL 40 MG DISPERSABLE TABLET ONE (04:12)
[2019-04-21] MEDS: METHADONE 120 MG, METHADONE 10 MG PO SCH (06:29)
[2019-04-21] MEDS: GABAPENTIN 400 MG CAPSULE (FP) PO SCH ×3 (06:30→21:27)
[2019-04-21] MEDS: NICOTINE 21 MG/24 HOURS TOPICAL PATCH TD SCH (09:37)
[2019-04-21] MEDS: BACITRACIN 15 GM TUBE TOPICAL OINTMENT TP SCH (09:38)
[2019-04-21] MEDS: PRENATAL VITAMINS W/ FOLIC ACID TABLET (FP) PO SCH (09:38)
[2019-04-21] MEDS: cloNIDine HCL 0.1 MG TABLET PO PRN ×2 (09:38→21:28)
[2019-04-21] MEDS: IBUPROFEN 400 MG TABLET (FP) PO PRN (10:19)
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
[2019-04-21] MEDS: THIAMINE HCL 100 MG TABLET (FP) PO SCH (21:26)
[2019-04-22] MEDS ORDERED: METHADONE HCL 40 MG DISPERSABLE TABLET ONE (05:53)
[2019-04-22] MEDS ORDERED: METHADONE HCL 10 MG TABLET ONE (05:53)
[2019-04-22] MEDS: METHADONE 120 MG, METHADONE 10 MG PO SCH (06:54)
[2019-04-22] MEDS: GABAPENTIN 400 MG CAPSULE (FP) PO SCH ×3 (06:56→21:30)
[2019-04-22] MEDS ORDERED: PT OWN MED DRAWER 7, Y5N ONE (08:32)
[2019-04-22] MEDS: NICOTINE 21 MG/24 HOURS TOPICAL PATCH TD SCH (09:36)
[2019-04-22] MEDS: PRENATAL VITAMINS W/ FOLIC ACID TABLET (FP) PO SCH (09:36)
[2019-04-22] MEDS: BACITRACIN 15 GM TUBE TOPICAL OINTMENT TP SCH (09:37)
[2019-04-22] MEDS: cloNIDine HCL 0.1 MG TABLET PO PRN (09:56)
[2019-04-22] MEDS: THIAMINE HCL 100 MG TABLET (FP) PO SCH (21:30)
[2019-04-22] MEDS: MELATONIN 5 MG TABLETS PO PRN (21:30)
[2019-04-23] MEDS ORDERED: METHADONE HCL 10 MG TABLET ONE (03:52)
[2019-04-23] MEDS ORDERED: METHADONE HCL 40 MG DISPERSABLE TABLET ONE (03:52)
[2019-04-23] MEDS: METHADONE 120 MG, METHADONE 10 MG PO SCH (06:38)
[2019-04-23] MEDS: GABAPENTIN 400 MG CAPSULE (FP) PO SCH ×3 (06:39→21:14)
[2019-04-23] MEDS: NICOTINE 21 MG/24 HOURS TOPICAL PATCH TD SCH (09:27)
[2019-04-23] MEDS: PRENATAL VITAMINS W/ FOLIC ACID TABLET (FP) PO SCH (09:27)
[2019-04-23] MEDS: BACITRACIN 15 GM TUBE TOPICAL OINTMENT TP SCH (09:28)
[2019-04-23] MEDS: cloNIDine HCL 0.1 MG TABLET PO PRN (09:43)
[2019-04-23] MEDS: MELATONIN 5 MG TABLETS PO PRN (21:14)
[2019-04-23] MEDS: THIAMINE HCL 100 MG TABLET (FP) PO SCH (21:14)
[2019-04-24] MEDS ORDERED: METHADONE HCL 10 MG TABLET ONE (03:53)
[2019-04-24] MEDS ORDERED: METHADONE HCL 40 MG DISPERSABLE TABLET ONE (03:54)
[2019-04-24] MEDS: GABAPENTIN 400 MG CAPSULE (FP) PO SCH ×3 (06:40→21:12)
[2019-04-24] MEDS: METHADONE 120 MG, METHADONE 10 MG PO SCH (06:41)
[2019-04-24] MEDS ORDERED: PT OWN MED DRAWER 7, Y5N ONE (08:35)
[2019-04-24] MEDS: cloNIDine HCL 0.1 MG TABLET PO PRN (09:51)
[2019-04-24] MEDS: PRENATAL VITAMINS W/ FOLIC ACID TABLET (FP) PO SCH (09:51)
[2019-04-24] MEDS: BACITRACIN 15 GM TUBE TOPICAL OINTMENT TP SCH (09:52)
[2019-04-24] MEDS: NICOTINE 21 MG/24 HOURS TOPICAL PATCH TD SCH (09:52)
[2019-04-24] MEDS: MELATONIN 5 MG TABLETS PO PRN (21:12)
[2019-04-24] MEDS: THIAMINE HCL 100 MG TABLET (FP) PO SCH (21:12)
[2019-04-25] MEDS ORDERED: METHADONE HCL 10 MG TABLET ONE (03:33)
[2019-04-25] MEDS ORDERED: METHADONE HCL 40 MG DISPERSABLE TABLET ONE (03:33)
[2019-04-25] MEDS: METHADONE 120 MG, METHADONE 10 MG PO SCH (06:37)
[2019-04-25] MEDS: GABAPENTIN 400 MG CAPSULE (FP) PO SCH ×3 (06:38→21:20)
[2019-04-25] MEDS: PRENATAL VITAMINS W/ FOLIC ACID TABLET (FP) PO SCH (09:49)
[2019-04-25] MEDS: BACITRACIN 15 GM TUBE TOPICAL OINTMENT TP SCH (09:49)
[2019-04-25] MEDS: NICOTINE 21 MG/24 HOURS TOPICAL PATCH TD SCH (09:49)
[2019-04-25] MEDS: cloNIDine HCL 0.1 MG TABLET PO PRN (09:49)
[2019-04-25] MEDS ORDERED: PT OWN MED DRAWER 7, Y5N ONE ×2 (21:10→22:19)
[2019-04-25] MEDS: THIAMINE HCL 100 MG TABLET (FP) PO SCH (21:20)
[2019-04-25] MEDS ORDERED: TUBERCULIN PPD 5 TU/0.1ML VIAL ID ONE (23:00)
[2019-04-26] MEDS ORDERED: METHADONE HCL 10 MG TABLET ONE (06:00)
[2019-04-26] MEDS ORDERED: METHADONE HCL 40 MG DISPERSABLE TABLET ONE (06:00)
[2019-04-26] MEDS: GABAPENTIN 400 MG CAPSULE (FP) PO SCH ×3 (06:39→21:10)
[2019-04-26] MEDS: METHADONE 120 MG, METHADONE 10 MG PO SCH (06:39)
[2019-04-26] MEDS: NICOTINE 21 MG/24 HOURS TOPICAL PATCH TD SCH (09:28)
[2019-04-26] MEDS: BACITRACIN 15 GM TUBE TOPICAL OINTMENT TP SCH (09:28)
[2019-04-26] MEDS: PRENATAL VITAMINS W/ FOLIC ACID TABLET (FP) PO SCH (09:28)
[2019-04-26] MEDS: cloNIDine HCL 0.1 MG TABLET PO PRN (10:00)
[2019-04-26] MEDS: THIAMINE HCL 100 MG TABLET (FP) PO SCH (21:10)
[2019-04-26] MEDS: MELATONIN 5 MG TABLETS PO PRN (21:11)
[2019-04-27] MEDS ORDERED: METHADONE HCL 10 MG TABLET ONE (04:09)
[2019-04-27] MEDS ORDERED: METHADONE HCL 40 MG DISPERSABLE TABLET ONE (04:10)
[2019-04-27] MEDS ORDERED: METHADONE HCL 10 MG TABLET PO SCH (06:00)
[2019-04-27] MEDS: METHADONE 120 MG, METHADONE 10 MG PO SCH (06:47)
[2019-04-27] MEDS: GABAPENTIN 400 MG CAPSULE (FP) PO SCH ×3 (06:47→21:47)
[2019-04-27] MEDS: PRENATAL VITAMINS W/ FOLIC ACID TABLET (FP) PO SCH (10:09)
[2019-04-27] MEDS: BACITRACIN 15 GM TUBE TOPICAL OINTMENT TP SCH (10:09)
[2019-04-27] MEDS: cloNIDine HCL 0.1 MG TABLET PO PRN (10:34)
[2019-04-27] MEDS: NICOTINE 21 MG/24 HOURS TOPICAL PATCH TD SCH (10:34)
[2019-04-27] MEDS: MELATONIN 5 MG TABLETS PO PRN (21:47)
[2019-04-27] MEDS: THIAMINE HCL 100 MG TABLET (FP) PO SCH (21:47)
[2019-04-28] MEDS ORDERED: METHADONE HCL 10 MG TABLET ONE (03:18)
[2019-04-28] MEDS ORDERED: METHADONE HCL 40 MG DISPERSABLE TABLET ONE (03:19)
[2019-04-28] MEDS: METHADONE 120 MG, METHADONE 10 MG PO SCH (07:19)
[2019-04-28] MEDS: GABAPENTIN 400 MG CAPSULE (FP) PO SCH ×3 (07:20→21:52)
[2019-04-28] MEDS: PRENATAL VITAMINS W/ FOLIC ACID TABLET (FP) PO SCH (09:49)
[2019-04-28] MEDS: BACITRACIN 15 GM TUBE TOPICAL OINTMENT TP SCH (09:49)
[2019-04-28] MEDS: NICOTINE 21 MG/24 HOURS TOPICAL PATCH TD SCH (09:49)
[2019-04-28] MEDS: cloNIDine HCL 0.1 MG TABLET PO PRN (09:49)
[2019-04-28] MEDS ORDERED: CYCLOBENZAPRINE HCL 5 MG TABLET PO SCH (14:00)
[2019-04-28] MEDS: THIAMINE HCL 100 MG TABLET (FP) PO SCH (21:50)
[2019-04-28] MEDS: MELATONIN 5 MG TABLETS PO PRN (21:50)
[2019-04-29] MEDS ORDERED: METHADONE HCL 10 MG TABLET ONE (03:25)
[2019-04-29] MEDS ORDERED: METHADONE HCL 40 MG DISPERSABLE TABLET ONE (03:26)
[2019-04-29] MEDS: METHADONE 120 MG, METHADONE 10 MG PO SCH (06:20)
[2019-04-29] MEDS: GABAPENTIN 400 MG CAPSULE (FP) PO SCH ×3 (06:21→21:55)
[2019-04-29] MEDS: BACITRACIN 15 GM TUBE TOPICAL OINTMENT TP SCH (09:05)
[2019-04-29] MEDS: NICOTINE 21 MG/24 HOURS TOPICAL PATCH TD SCH (09:05)
[2019-04-29] MEDS: cloNIDine HCL 0.1 MG TABLET PO PRN (09:06)
[2019-04-29] MEDS: PRENATAL VITAMINS W/ FOLIC ACID TABLET (FP) PO SCH (09:06)
[2019-04-29] MEDS: IBUPROFEN 400 MG TABLET (FP) PO PRN (13:29)
[2019-04-29] MEDS: MELATONIN 5 MG TABLETS PO PRN (21:55)
[2019-04-29] MEDS: THIAMINE HCL 100 MG TABLET (FP) PO SCH (21:55)
[2019-04-30] MEDS ORDERED: METHADONE HCL 10 MG TABLET ONE (05:55)
[2019-04-30] MEDS ORDERED: METHADONE HCL 40 MG DISPERSABLE TABLET ONE (05:56)
[2019-04-30] MEDS: METHADONE 120 MG, METHADONE 10 MG PO SCH (06:58)
[2019-04-30] MEDS: GABAPENTIN 400 MG CAPSULE (FP) PO SCH ×3 (06:59→21:53)
[2019-04-30] MEDS ORDERED: PT OWN MED DRAWER 7, Y5N ONE ×2 (09:04→11:07)
[2019-04-30] MEDS: PRENATAL VITAMINS W/ FOLIC ACID TABLET (FP) PO SCH (09:41)
[2019-04-30] MEDS: BACITRACIN 15 GM TUBE TOPICAL OINTMENT TP SCH (09:41)
[2019-04-30] MEDS: NICOTINE 21 MG/24 HOURS TOPICAL PATCH TD SCH (09:41)
[2019-04-30] MEDS: cloNIDine HCL 0.1 MG TABLET PO PRN ×2 (09:41→21:54)
[2019-04-30] MEDS: THIAMINE HCL 100 MG TABLET (FP) PO SCH (21:53)
[2019-04-30] MEDS: MELATONIN 5 MG TABLETS PO PRN (21:53)
[2019-05-01] MEDS ORDERED: METHADONE HCL 10 MG TABLET ONE (05:48)
[2019-05-01] MEDS ORDERED: METHADONE HCL 40 MG DISPERSABLE TABLET ONE (05:49)
[2019-05-01] MEDS: GABAPENTIN 400 MG CAPSULE (FP) PO SCH ×3 (07:35→21:41)
[2019-05-01] MEDS: METHADONE 120 MG, METHADONE 10 MG PO SCH (07:36)
[2019-05-01] MEDS: BACITRACIN 15 GM TUBE TOPICAL OINTMENT TP SCH (09:21)
[2019-05-01] MEDS: cloNIDine HCL 0.1 MG TABLET PO PRN ×2 (09:21→21:42)
[2019-05-01] MEDS: PRENATAL VITAMINS W/ FOLIC ACID TABLET (FP) PO SCH (09:21)
[2019-05-01] MEDS: NICOTINE 21 MG/24 HOURS TOPICAL PATCH TD SCH (09:21)
[2019-05-01] MEDS: THIAMINE HCL 100 MG TABLET (FP) PO SCH (21:40)
[2019-05-01] MEDS: MELATONIN 5 MG TABLETS PO PRN (21:41)
[2019-05-02] MEDS ORDERED: METHADONE HCL 10 MG TABLET ONE (05:45)
[2019-05-02] MEDS ORDERED: METHADONE HCL 40 MG DISPERSABLE TABLET ONE (05:46)
[2019-05-02] MEDS: METHADONE 120 MG, METHADONE 10 MG PO SCH (06:25)
[2019-05-02] MEDS: GABAPENTIN 400 MG CAPSULE (FP) PO SCH (06:25)
[2019-05-02 07:01] VITALS: BP 107/72; PULSE 57; TEMP 97.1
[2019-05-02] MEDS ORDERED: PT OWN MED DRAWER 7, Y5N ONE (08:45)
--- NOTE | 2019-05-02 08:48 | DS ---
[facility] Rehab Discharge Summary - [facility] Rehab Discharge Summary Admission Date: 04/14/19 Discharge Date: 05/02/19 - History Present History: Cocaine dependence, MMTP, Sedative dependence Additional Comments: Pt is a 33 y/o female with a hx of JACLYN admitted to rehab and discharged today after completion. Pt met with her counselor Ms Kayce Hong and has been referred to CD aftercare at [facility]. Pt is homeless and has been referred to [facility], [place], [place]. Pt will be connected to primary care at the [facility]. Pertinent Past History: Hep c HTN related to withdrawal sx Seizures disorder Chronic Ulcer left Ankle - Discharge Physical Exam Vital Signs: Vital Signs Temperature 97.1 F L 05/02/19 07:00 Pulse Rate 57 L 05/02/19 07:00 Respiratory Rate 18 05/02/19 07:00 Blood Pressure 107/72 05/02/19 07:00 O2 Sat by Pulse Oximetry (%) Alert o x 3 nad oob ambulating with steady gait cardiac:s1 s2 rrr lungs:cta,dean. abdomen:soft,+bs,ntnd-flat. extremities/skin:no edema,full ROM,left ankle ulcer dressing intact; left leg/ other skin areas intact. Pertinent Admission Physical Exam Findings: stage 2 Ulcer seen on admission to detox. S/p left ankle fracture repair/revision - Treatment Discharge Condition: Discharge condition good Hospital Course: Rehabilitated safely and responded well. CD aftercare referral accepted. - Medication Discharge Medications: Ambulatory Orders Bacitracin - [Bacitracin Topical Ointment -] 1 applic TP DAILY #1 tube 05/02/19 Gabapentin [Neurontin -] 800 mg PO TID 14 Days capsule 05/02/19 Polyhexam Biguan/Gauze Bandage [Kerlix Amd Bandage 0.2% Roll] 1 each TP DAILY # 2 bandage 05/02/19 - Medication-Assisted Treatment (MAT) Medication-Assisted Treatment (MAT): No - Discharge Instructions Diet, activity, other medical instructions: Diet:Regular Activity: OOb ad humaira Other medical instructions:Follow up with CD aftercare as recommended. D/W pt to Follow up with primary care when situated at the [facility] as scheduled. - Diagnosis (1) Sedative dependence Status: Chronic (2) Cocaine dependence Status: Chronic Qualifiers: Substance use status: uncomplicated Qualified Code(s): F14.20 - Cocaine dependence, uncomplicated (3) Hepatitis C Status: Chronic Qualifiers: Viral hepatitis chronicity: chronic Hepatic coma status: without hepatic coma Qualified Code(s): B18.2 - Chronic viral hepatitis C (4) Methadone maintenance therapy patient Status: Chronic (5) Nicotine dependence Status: Chronic Qualifiers: Nicotine product type: cigarettes Substance use status: uncomplicated Qualified Code(s): F17.210 - Nicotine dependence, cigarettes, uncomplicated (6) Seizure disorder Status: Chronic (7) Seizure Status: Suspected (8) Chronic ulcer of ankle Status: Chronic Qualifiers: Laterality: left - Follow-up Referral Minutes to complete discharge: 25 - AMA Did Patient Leave Against Medical Advice: No Additional Comments: Courtesy medical supplies for ankle dressing and Gabapentin 800 mg po TID x 14 days Rx sent electronically to [place] [facility] for patient cloth picker.
[2019-05-02] MEDS: PRENATAL VITAMINS W/ FOLIC ACID TABLET (FP) PO SCH (09:01)
[2019-05-02] MEDS: NICOTINE 21 MG/24 HOURS TOPICAL PATCH TD SCH (09:01)
[2019-05-02] MEDS: BACITRACIN 15 GM TUBE TOPICAL OINTMENT TP SCH (09:01)
[2019-05-02] MEDS: cloNIDine HCL 0.1 MG TABLET PO PRN (09:02)
[2019-05-03] MEDS ORDERED: METHADONE 120 MG, METHADONE 10 MG PO SCH (06:00)
[2019-05-03] MEDS ORDERED: METHADONE HCL 10 MG TABLET PO SCH (06:00)
== END 2019-05-02 09:24 | disposition home or self-care (01) | DRG 772 ==
LOC: YASAS 11:42 → Y3E 11:43
PROVIDERS: ADMIT Neuromusculoskeletal Medicine & OMM; ATTEND Neuromusculoskeletal Medicine & OMM
PROC: HZ42ZZZ Group Counseling for Substance Abuse Treatment, Cognitive-Behavioral (ICD-10-PCS; principal; 2019-04-14)
DX: F14.20 Cocaine dependence, uncomplicated (principal); F11.20 Opioid dependence, uncomplicated; F17.210 Nicotine dependence, cigarettes, uncomplicated; B18.2 Chronic viral hepatitis C; I10 Essential (primary) hypertension; G40.909 Epilepsy, unspecified, not intractable, without status epilepticus; L89.522 Pressure ulcer of left ankle, stage 2
CPT/HCPCS: J0735

== ENCOUNTER 2020-04-20 10:30 | Inpatient (IN) | payer OTHER ==
[2020-04-20 11:48] VITALS: BMI 20.9
[2020-04-20] MEDS ORDERED: PATIENT'S OWN MEDICATION (NON-FORMULARY) (Polyhexam Biguan/Gauze Bandage [Kerlix Amd Banda TP SCH (12:30)
[2020-04-20] MEDS ORDERED: MAGNESIUM CITRATE 300 ML BOTTLE PO PRN (12:31)
[2020-04-20] MEDS ORDERED: MAG HYDROX/AL HYDROX/SIMETH 30 ML UNIT-DOSE CUP PO PRN (12:31)
[2020-04-20] MEDS ORDERED: NICOTINE POLACRILEX 2 MG GUM BUC PRN (12:31)
[2020-04-20] MEDS ORDERED: ONDANSETRON *ODT* 4 MG TABLET SL PRN (12:31)
[2020-04-20] MEDS ORDERED: MENTHOL/PHENOL 1 EACH UD MM PRN (12:31)
[2020-04-20] MEDS ORDERED: METHOCARBAMOL 500 MG TABLET PO PRN (12:31)
[2020-04-20] MEDS ORDERED: BISMUTH SUBSALICYLATE 524 MG/30 ML UD PO PRN (12:31)
[2020-04-20] MEDS ORDERED: MAGNESIUM HYDROX 2400MG/30ML ORAL SUSPENSION 30 ML CUP PO PRN (12:31)
[2020-04-20] MEDS ORDERED: ACETAMINOPHEN 325 MG TABLET (FP) PO PRN ×2 (12:31)
[2020-04-20] MEDS ORDERED: cloNIDine HCL 0.1 MG TABLET PO PRN (12:31)
[2020-04-20] MEDS ORDERED: METHADONE HCL 10 MG TABLET (FOR DETOX USE ONLY) PO ONE (13:30)
[2020-04-20] MEDS: NICOTINE 14 MG/24 HOURS TOPICAL PATCH TD SCH (14:07)
[2020-04-20] MEDS: GABAPENTIN 400 MG CAPSULE PO SCH ×2 (14:08→22:25)
[2020-04-20] MEDS: hydrOXYzine PAMOATE 25 MG CAPSULE (FP) PO SCH ×3 (14:09→22:24)
[2020-04-20] MEDS: BACITRACIN 0.9 GM PACKET TP SCH (14:09)
[2020-04-20 17:05] LABS: POTASSIUM 4.2 mmol/L (3.5-5.1)
[2020-04-20 17:11] LABS: BLOOD UREA NITROGEN 15.9 mg/dL (7-18); CALCIUM 9.4 mg/dL (8.5-10.1)
[2020-04-20 17:12] LABS: HEMATOCRIT 39.6 % (32.4-45.2); HEMOGLOBIN 13.2 GM/dL (10.7-15.3); MCH 26.2 pg (25.7-33.7); MCHC 33.3 g/dl (32.0-36.0); MEAN CELL VOLUME 78.7 fl (80-96); MEAN PLT VOLUME 7.6 fl (7.5-11.1); PLATELET COUNT 312 K/MM3 (134-434); RBC 5.03 M/mm3 (3.60-5.2); RDW 14.1 % (11.6-15.6); WHITE BLOOD COUNT 10.8 K/mm3 (4.0-10.0)
[2020-04-20 17:15] LABS: CREATININE 0.6 mg/dL (0.55-1.3)
[2020-04-20 17:16] LABS: BILIRUBIN,TOTAL 0.4 mg/dL (0.2-1); TOT PROT 7.8 g/dl (6.4-8.2)
[2020-04-20] MEDS: diazePAM 5 MG TABLET PO SCH ×2 (17:23→22:24)
[2020-04-20] MEDS: MELATONIN 5 MG TABLETS PO SCH (22:24)
[2020-04-20] MEDS: THIAMINE HCL 100 MG TABLET (FP) PO SCH (22:24)
[2020-04-21] MEDS: hydrOXYzine PAMOATE 25 MG CAPSULE (FP) PO SCH ×5 (05:47→22:28)
[2020-04-21] MEDS: diazePAM 5 MG TABLET PO SCH ×4 (05:47→22:28)
[2020-04-21] MEDS: IBUPROFEN 400 MG TABLET (FP) PO PRN (05:49)
[2020-04-21] MEDS: GABAPENTIN 400 MG CAPSULE PO SCH ×3 (07:03→22:30)
[2020-04-21] MEDS ORDERED: METHADONE (DETOX) 20 MG, METHADONE (DETOX) 5 MG PO ONE (10:00)
[2020-04-21] MEDS ORDERED: METHADONE HCL 5 MG TABLET (FOR DETOX USE ONLY) ONE (10:01)
[2020-04-21] MEDS ORDERED: METHADONE HCL 10 MG TABLET (FOR DETOX USE ONLY) ONE (10:01)
[2020-04-21] MEDS: BACITRACIN 0.9 GM PACKET TP SCH (10:26)
[2020-04-21] MEDS: ESCITALOPRAM OXALATE 10 MG TABLET PO SCH (10:26)
[2020-04-21] MEDS: NICOTINE 14 MG/24 HOURS TOPICAL PATCH TD SCH (10:27)
[2020-04-21] MEDS: PRENATAL VITAMINS W/ FOLIC ACID TABLET (FP) PO SCH (10:27)
[2020-04-21] MEDS: diazePAM 5 MG TABLET PO PRN (15:13)
[2020-04-21] MEDS: THIAMINE HCL 100 MG TABLET (FP) PO SCH (22:28)
[2020-04-21] MEDS: MELATONIN 5 MG TABLETS PO SCH (22:28)
[2020-04-22] MEDS: diazePAM 5 MG TABLET PO SCH ×3 (06:01→21:54)
[2020-04-22] MEDS: hydrOXYzine PAMOATE 25 MG CAPSULE (FP) PO SCH ×5 (06:01→21:54)
[2020-04-22] MEDS: GABAPENTIN 400 MG CAPSULE PO SCH ×3 (06:01→21:56)
[2020-04-22] MEDS ORDERED: METHADONE HCL 10 MG TABLET (FOR DETOX USE ONLY) PO ONE (10:00)
[2020-04-22] MEDS: ESCITALOPRAM OXALATE 10 MG TABLET PO SCH (10:18)
[2020-04-22] MEDS: BACITRACIN 0.9 GM PACKET TP SCH (10:18)
[2020-04-22] MEDS: NICOTINE 14 MG/24 HOURS TOPICAL PATCH TD SCH (10:19)
[2020-04-22] MEDS: PRENATAL VITAMINS W/ FOLIC ACID TABLET (FP) PO SCH (10:19)
[2020-04-22] MEDS ORDERED: MASKS NR ONE (11:17)
[2020-04-22] MEDS ORDERED: FLU VACCINE (FLULAVAL) PF 60 MCG/0.5 ML SYRINGE 2020-2021 IM ONE (12:00)
[2020-04-22 13:55] LABS: BASO % 0.7 % (0-2.0); EOS % 1.2 % (0-4.5); HEMATOCRIT 37.3 % (32.4-45.2); HEMOGLOBIN 12.2 GM/dL (10.7-15.3); LYMPH % 38.5 % (8-40); MCH 25.8 pg (25.7-33.7); MCHC 32.7 g/dl (32.0-36.0); MEAN CELL VOLUME 79.1 fl (80-96); MEAN PLT VOLUME 7.9 fl (7.5-11.1); MONO % 8.6 % (3.8-10.2); PLATELET COUNT 229 K/MM3 (134-434); RBC 4.72 M/mm3 (3.60-5.2); RDW 13.9 % (11.6-15.6); WHITE BLOOD COUNT 7.1 K/mm3 (4.0-10.0)
[2020-04-22] MEDS: IBUPROFEN 400 MG TABLET (FP) PO PRN (15:39)
[2020-04-22] MEDS: MELATONIN 5 MG TABLETS PO SCH (21:54)
[2020-04-22] MEDS: THIAMINE HCL 100 MG TABLET (FP) PO SCH (21:54)
[2020-04-23] MEDS: diazePAM 5 MG TABLET PO PRN ×3 (03:48→19:26)
[2020-04-23] MEDS: GABAPENTIN 400 MG CAPSULE PO SCH ×3 (06:13→22:19)
[2020-04-23] MEDS: hydrOXYzine PAMOATE 25 MG CAPSULE (FP) PO SCH ×5 (06:13→22:20)
[2020-04-23] MEDS: diazePAM 5 MG TABLET PO SCH ×2 (06:13→17:41)
[2020-04-23] MEDS ORDERED: METHADONE HCL 10 MG TABLET (FOR DETOX USE ONLY) ONE (09:38)
[2020-04-23] MEDS ORDERED: METHADONE HCL 5 MG TABLET (FOR DETOX USE ONLY) ONE (09:39)
[2020-04-23] MEDS ORDERED: METHADONE (DETOX) 10 MG, METHADONE (DETOX) 5 MG PO ONE (10:00)
[2020-04-23] MEDS: PRENATAL VITAMINS W/ FOLIC ACID TABLET (FP) PO SCH (10:13)
[2020-04-23] MEDS: BACITRACIN 0.9 GM PACKET TP SCH (10:13)
[2020-04-23] MEDS: ESCITALOPRAM OXALATE 10 MG TABLET PO SCH (10:13)
[2020-04-23] MEDS: NICOTINE 14 MG/24 HOURS TOPICAL PATCH TD SCH (10:15)
[2020-04-23] MEDS: IBUPROFEN 400 MG TABLET (FP) PO PRN ×2 (14:22→22:22)
[2020-04-23] MEDS: THIAMINE HCL 100 MG TABLET (FP) PO SCH (22:19)
[2020-04-23] MEDS: MELATONIN 5 MG TABLETS PO SCH (22:20)
[2020-04-24] MEDS: hydrOXYzine PAMOATE 25 MG CAPSULE (FP) PO SCH ×5 (05:34→22:06)
[2020-04-24] MEDS: GABAPENTIN 400 MG CAPSULE PO SCH ×3 (05:35→22:07)
[2020-04-24] MEDS ORDERED: diazePAM 5 MG TABLET PO ONE (06:00)
[2020-04-24] MEDS: BACITRACIN 0.9 GM PACKET TP SCH (09:33)
[2020-04-24] MEDS: PRENATAL VITAMINS W/ FOLIC ACID TABLET (FP) PO SCH (09:33)
[2020-04-24] MEDS: ESCITALOPRAM OXALATE 10 MG TABLET PO SCH (09:34)
[2020-04-24] MEDS: NICOTINE 14 MG/24 HOURS TOPICAL PATCH TD SCH (09:34)
[2020-04-24] MEDS: diazePAM 5 MG TABLET PO PRN ×2 (09:38→22:10)
[2020-04-24] MEDS ORDERED: METHADONE HCL 10 MG TABLET (FOR DETOX USE ONLY) PO ONE (10:00)
[2020-04-24] MEDS: IBUPROFEN 400 MG TABLET (FP) PO PRN (10:54)
[2020-04-24] MEDS: THIAMINE HCL 100 MG TABLET (FP) PO SCH (22:06)
[2020-04-24] MEDS: MELATONIN 5 MG TABLETS PO SCH (22:07)
[2020-04-25] MEDS: GABAPENTIN 400 MG CAPSULE PO SCH (06:00)
[2020-04-25] MEDS ORDERED: METHADONE HCL 5 MG TABLET (FOR DETOX USE ONLY) PO ONE (06:00)
[2020-04-25] MEDS: hydrOXYzine PAMOATE 25 MG CAPSULE (FP) PO SCH ×2 (06:00→09:46)
[2020-04-25 09:08] VITALS: BP 131/74; PULSE 100; TEMP 97.2
[2020-04-25] MEDS: BACITRACIN 0.9 GM PACKET TP SCH (09:45)
[2020-04-25] MEDS: PRENATAL VITAMINS W/ FOLIC ACID TABLET (FP) PO SCH (09:45)
[2020-04-25] MEDS: NICOTINE 14 MG/24 HOURS TOPICAL PATCH TD SCH (09:46)
[2020-04-25] MEDS: ESCITALOPRAM OXALATE 10 MG TABLET PO SCH (09:46)
== END 2020-04-25 10:56 | disposition other institution (70) | DRG 773 ==
LOC: YASAS 10:30 → Y3N 13:07
PROVIDERS: ADMIT Allergy & Immunology; ATTEND Allergy & Immunology
PROC: HZ2ZZZZ Detoxification Services for Substance Abuse Treatment (ICD-10-PCS; principal; 2020-04-20)
DX: F11.23 Opioid dependence with withdrawal (principal); F10.230 Alcohol dependence with withdrawal, uncomplicated; F13.230 Sedative, hypnotic or anxiolytic dependence with withdrawal, uncomplicated; F17.210 Nicotine dependence, cigarettes, uncomplicated; F19.24 Other psychoactive substance dependence with psychoactive substance-induced mood disorder; F32.9 Major depressive disorder, single episode, unspecified; L97.329 Non-pressure chronic ulcer of left ankle with unspecified severity; D72.829 Elevated white blood cell count, unspecified; I10 Essential (primary) hypertension; B18.2 Chronic viral hepatitis C; Z62.810 Personal history of physical and sexual abuse in childhood; Z91.410 Personal history of adult physical and sexual abuse; Z86.69 Personal history of other diseases of the nervous system and sense organs; Z86.2 Personal history of diseases of the blood and blood-forming organs and certain disorders involving the immune mechanism; Z59.0 Homelessness; Z56.0 Unemployment, unspecified
CPT/HCPCS: 36415; 80053; 81025; 85025; 85027; 86780; C9803; G0008; Q2036; U0003

== ENCOUNTER 2020-04-25 11:27 | Inpatient (IN) | payer OTHER ==
--- OUTSIDE RECORDS SUMMARY | 2020-04-25 11:32 | XMS ---
:1985 Author Organization [facility] Support Name Relationship Address Phone LEROY LEES OTHER RELATIONSHIP [place] [place], [place] UE Unavailable Unavailable Unavailable PHILIP GUPTA SELF / [place] [address] LEROY LEES Other [employer] [phone] [place], [place] Re-disclosure Warning The records that you are about to access may contain information from federally- assisted alcohol or drug abuse programs. If such information is present, then the following federally mandated warning applies: This information has been disclosed to you from records protected by federal confidentiality rules (42 CFR part 2). The federal rules prohibit you from making any further disclosure of this information unless further disclosure is expressly permitted by the written consent of the person to whom it pertains or as otherwise permitted by 42 CFR part 2. A general authorization for the release of medical or other information is NOT sufficient for this purpose. The Federal rules restrict any use of the information to criminally investigate or prosecute any alcohol or drug abuse patient.The records that you are about to access may contain highly sensitive health information, the redisclosure of which is protected by Article 27-F of the [facility] Public Health law. If you continue you may haveaccess to information: Regarding HIV / AIDS; Provided by facilities licensed or operated by the [facility] Office of Mental Health; or Provided by the [facility] Office for People With Developmental Disabilities. If such information is present, then the following [facility] mandated warning applies: This information has been disclosed to you from confidential records which are protected by state law. State law prohibits you from making any further disclosure of this information without the specific written consent of the person to whom it pertains, or as otherwise permitted by law. Any unauthorized further disclosure in violation of state law may result in a fine or [place] [facility] sentence or both. A general authorization for the release of medical or other information is NOT sufficient authorization for further disclosure. Insurance Providers Payer name Policy type Policy ID Covered Covered constitution party's Policy P rafa / Coverage constitution party ID relationship to [employer] Inf ormation type barillas BE[employer]ON [id number] SP [id number] [employer] [id number] SP [id number] [employer] [id number] SP [id number] [employer] Results ID Date Data Source [id number] 04/20/2020 01:00:00 PM EDT [facility] Name Value Range Interpretation Description Data Sup porting Code Source(s) Document(s ) SARS [facility] coronavirus 2 RNA This lab was ordered by [facility] and reported by [facility]. ID Date Data Source [id number] 01/18/2020 04:55:00 PM EDT [facility] Name Value Range Interpretation Code Description Data Gloria rce(s) Supporting Document(s ) SARS-CoV-2 [facility] RNA Resp Ql JN+probe This lab was ordered by [facility] and rep orted by [facility]. ID Date Data Source [id number] 01/09/2020 12:00:00 AM EDT [facility] Name Value Range Interpretation Code Description Data Gloria rce(s) Supporting Document(s ) 2019-nCoV [facility] RNA XXX JN+probe- Imp This lab was ordered by [facility] and reported by [employer] Procedure
--- OUTSIDE RECORDS SUMMARY | 2020-04-25 11:33 | XMS ---
:1985 Author Organization [facility] Support Name Relationship Address Phone LEROY LEES OTHER RELATIONSHIP [employer] [place], [place] UE Unavailable Unavailable Unavailable PHILIP GUPTA SELF / [place] [address] LEROY LEES Other [employer] [phone] [place], [place] Re-disclosure Warning The records that [...] is protected by Article 27-F of the [facility] Public Health law. If you continue you may haveaccess to information: Regarding HIV / AIDS; Provided by facilities licensed or operated by the [facility] Office of Mental Health; or Provided by the [facility] Office for People With Developmental Disabilities. If such information is present, then the following [facility] mandated warning applies: This information has [...] law may result in a fine or [facility] sentence or both. A general authorization for the release of medical or other information is NOT sufficient authorization for further disclosure. Insurance Providers Payer name Policy type Policy ID Covered Covered green party's Policy P rafa / Coverage green party ID relationship to [employer] Inf ormation type barillas [employer] [id number] SP [id number] [employer] [id number] SP [id number] [employer] [id number] SP [id number] [employer] Results ID Date Data Source [id number] 04/20/2020 01:00:00 PM EDT [facility] Name Value Range Interpretation Description Data Sup porting Code Source(s) Document(s ) SARS [facility] coronavirus 2 RNA This lab was ordered by [facility] and reported by [facility]. ID Date Data Source [id number] 01/18/2020 04:55:00 PM EDT [facility] Name Value Range Interpretation Code Description Data Gloria rce(s) Supporting Document(s ) SARS-CoV-2 [facility] RNA Resp Ql JN+probe This lab was ordered by [facility] and rep orted by [facility]. ID Date Data Source [id number] 01/09/2020 12:00:00 AM EDT [facility] Name Value Range Interpretation Code Description Data Gloria rce(s) Supporting Document(s ) 2019-nCoV [facility] RNA XXX JN+probe- Imp This lab was ordered by [facility] and reported by [employer] Procedure
[2020-04-25] MEDS ORDERED: LOPERAMIDE HCL 2 MG CAPSULE PO PRN (12:29)
[2020-04-25] MEDS ORDERED: hydrOXYzine PAMOATE 25 MG CAPSULE (FP) PO PRN (12:29)
[2020-04-25] MEDS ORDERED: guaiFENesin 200 MG/10 ML 10 ML UNIT-DOSE CUPS PO PRN (12:29)
[2020-04-25] MEDS ORDERED: NICOTINE POLACRILEX 2 MG GUM BUC PRN (12:29)
[2020-04-25] MEDS ORDERED: ACETAMINOPHEN 325 MG TABLET (FP) PO PRN (12:29)
[2020-04-25] MEDS ORDERED: P-EPHED 60MG/TRIPROLIDI 2.5MG TABLET PO PRN (12:29)
[2020-04-25] MEDS ORDERED: MAGNESIUM HYDROX 2400MG/30ML ORAL SUSPENSION 30 ML CUP PO PRN (12:29)
[2020-04-25] MEDS ORDERED: MAGNESIUM CITRATE 300 ML BOTTLE PO PRN (12:29)
[2020-04-25] MEDS ORDERED: MENTHOL/PHENOL 1 EACH UD MM PRN (12:29)
[2020-04-25] MEDS ORDERED: MAG HYDROX/AL HYDROX/SIMETH 30 ML UNIT-DOSE CUP PO PRN (12:29)
--- NOTE | 2020-04-25 12:43 | HP ---
[facility] Rehab Assess/Revision - Admission History Admitted to Rehab from: [facility] - Vital signs Vital Signs: Vital Signs Period Temp Pulse Resp BP Sys/Pena Pulse Ox Last 24 Hr 97.1 F 112 18 118/88 - Findings Detox History & Physical reviewed: Yes Concur with findings: Yes Comments/Additional Findings: Physical. General Appearance: No Apparent Distress. HEENTM: EOMI, Normocephalic. Respiratory: No Respiratory Distress, No Accessory Muscle Use. Neck: Supple. Abdominal: +Bowel Sounds,. Musculoskeletal: Full weight bearing Gait Steady. Extremities: left ankle ulcer over medial malleolus ~2 x 1 cm, serous drainage, foot hyperpigmented, scab over lateral ankle vertical and ~ 7 cm in length. Neurological: Alert, Inpatient Rehab Admission - Rehab Decision to Admit Inpatient rehab admission?: Yes - Initial Determination Are CD services needed?: Yes Free of communicable disease: Yes Not in need of hospitalization: Yes - Rehab Admission Criteria Previous failed treatment: Yes Poor recovery environment: Yes Comorbidities: Yes Lacks judgement: Yes Patient is meeting Inpatient Rehab admission criteria:: Yes
[2020-04-25] MEDS: GABAPENTIN 400 MG CAPSULE PO SCH ×2 (14:09→21:25)
[2020-04-25] MEDS: METHOCARBAMOL 500 MG TABLET PO SCH ×3 (14:09→21:27)
[2020-04-25] MEDS: MELATONIN 5 MG TABLETS PO SCH (21:25)
[2020-04-25] MEDS: THIAMINE HCL 100 MG TABLET (FP) PO SCH (21:25)
[2020-04-25] MEDS: cloNIDine HCL 0.1 MG TABLET PO SCH (21:26)
[2020-04-26] MEDS: GABAPENTIN 400 MG CAPSULE PO SCH ×3 (06:53→21:04)
[2020-04-26] MEDS: BACITRACIN 0.9 GM PACKET TP SCH (09:32)
[2020-04-26] MEDS: NICOTINE 14 MG/24 HOURS TOPICAL PATCH TD SCH (09:33)
[2020-04-26] MEDS: PRENATAL VITAMINS W/ FOLIC ACID TABLET (FP) PO SCH (09:33)
[2020-04-26] MEDS: cloNIDine HCL 0.1 MG TABLET PO SCH ×2 (09:33→21:04)
[2020-04-26] MEDS: ESCITALOPRAM OXALATE 10 MG TABLET PO SCH (09:33)
[2020-04-26] MEDS: METHOCARBAMOL 500 MG TABLET PO SCH ×4 (09:34→21:05)
[2020-04-26] MEDS ORDERED: BACITRACIN 15 GM TUBE TOPICAL OINTMENT TP SCH (10:00)
[2020-04-26] MEDS ORDERED: ESCITALOPRAM OXALATE 10 MG TABLET PO SCH (10:00)
--- NOTE | 2020-04-26 10:26 | PN ---
[facility] Progress Note Note: c/o chronic LBP. Requesting Lidocaine patch. Vital Signs - 24 hr 04/25/20 04/25/20 04/25/20 11:44 13:11 20:37 Temperature 97.1 F L Pulse Rate 112 H Respiratory 18 Rate Blood Pressure 118/88 O2 Sat by Pulse 98 99 Oximetry (%) 04/25/20 04/26/20 04/26/20 21:47 06:50 09:00 Temperature 97.7 F Pulse Rate 107 H 106 H 99 H Respiratory 16 Rate Blood Pressure 118/80 112/78 112/74 O2 Sat by Pulse 99 Oximetry (%) Plan:Lidocaine patch 5% apply to affected area as directed.
[2020-04-26] MEDS: LIDOCAINE 5% TOPICAL PATCH TP SCH (11:17)
[2020-04-26] MEDS: IBUPROFEN 400 MG TABLET (FP) PO PRN (18:14)
[2020-04-26] MEDS ORDERED: MASKS NR ONE (18:40)
[2020-04-26] MEDS: MELATONIN 5 MG TABLETS PO SCH (21:04)
[2020-04-26] MEDS: THIAMINE HCL 100 MG TABLET (FP) PO SCH (21:05)
[2020-04-26] MEDS ORDERED: LIDOCAINE PATCH REMOVAL MC SCH (22:00)
[2020-04-27] MEDS: GABAPENTIN 400 MG CAPSULE PO SCH (06:43)
[2020-04-27] MEDS: IBUPROFEN 400 MG TABLET (FP) PO PRN (06:46)
[2020-04-27 09:07] VITALS: TEMP 97.1
[2020-04-27 09:23] VITALS: BP 117/81; PULSE 89
[2020-04-27] MEDS: cloNIDine HCL 0.1 MG TABLET PO SCH (09:23)
[2020-04-27] MEDS: PRENATAL VITAMINS W/ FOLIC ACID TABLET (FP) PO SCH (09:24)
[2020-04-27] MEDS: NICOTINE 14 MG/24 HOURS TOPICAL PATCH TD SCH (09:24)
[2020-04-27] MEDS: LIDOCAINE 5% TOPICAL PATCH TP SCH (09:24)
[2020-04-27] MEDS: ESCITALOPRAM OXALATE 10 MG TABLET PO SCH (09:24)
[2020-04-27] MEDS: BACITRACIN 0.9 GM PACKET TP SCH (09:25)
[2020-04-27] MEDS: METHOCARBAMOL 500 MG TABLET PO SCH (09:25)
--- NOTE | 2020-04-27 09:51 | DS ---
[facility] Rehab Discharge Summary - [facility] Rehab Discharge Summary Admission Date: 04/25/20 Discharge Date: 04/27/20 - History Present History: MMTP, Sedative dependence - Discharge Physical Exam Vital Signs: Vital Signs Temperature 97.1 F L 04/27/20 09:06 Pulse Rate 89 04/27/20 09:23 Respiratory Rate 16 04/27/20 09:06 Blood Pressure 117/81 04/27/20 09:23 O2 Sat by Pulse Oximetry (%) 99 04/27/20 06:35 ROS: DENIES OPIOD CRAVINGS, BODY ACHES, SWEATS, FEVER, COUGH AND DIZZINESS. PE: ALERT AND ORIENTED X 3 SKIN WARM AND DRY +PERRLA, EOMS INTACT BL IN NAD EXT FULL ROM, AMB AD RAFA NO TREMORS DENIES SI/HI A/P: OPIOD DEPENDENCE SEDATIVE DEPENDENCE PATIENT MEDICALLY STABLE FOR DISCHARGE AFTERCARE ARRANGED FOR PATIENT TO GET REINSTATED TO [facility] TODAY AT 12 NOON - Treatment Discharge Condition: Discharge condition good, Outpatient referral accepted Hospital Course: PATIENT REQUESTED EARLY DISCHARGE TODAY FROM REHAB FOR OPIOD/SEDATIVE DEPENDENCE. PATIENT IS MEDICALLY STABLE AND DENIES SI/HI. DURING COURSE OF TREATMENT, PATIENT ATTENDED GROUP MEETINGS AND 1:1 COUNSELING SESSIONS WITH COUNSELOR. AFTERCARE ARRANGED FOR REINSTATEMENT TO [facility] TODAY AT 12 NOON. PATIENT MEDICALLY ADVISED TO FOLLOW UP WITH AFTERCARE MMTP PROGRAM TO MAINTAIN SOBRIETY AND TO FOLLOW UP WITH PCP RECOMMENDED FOR PHYSICAL EXAM. Ambulatory Orders Bacitracin - [Bacitracin Topical Ointment -] 1 applic TP DAILY #1 tube 05/02/19 Gabapentin [Neurontin -] 800 mg PO TID 14 Days capsule 05/02/19 Escitalopram Oxalate [Lexapro -] 10 mg PO DAILY 04/25/20 - Medication Discharge Medications: Ambulatory Orders Bacitracin - [Bacitracin Topical Ointment -] 1 applic TP DAILY #1 tube 05/02/19 Gabapentin [Neurontin -] 800 mg PO TID 14 Days capsule 05/02/19 Escitalopram Oxalate [Lexapro -] 10 mg PO DAILY 04/25/20 - Medication-Assisted Treatment (MAT) Medication-Assisted Treatment (MAT): No MAT Follow-up Referral: [facility], APPT TODAY AT 12 NOON. - Discharge Instructions Diet, activity, other medical instructions: Diet: REG TOLERATED Activity: AMB AD RAFA Other medical instructions: F/U WITH PCP RECOMMENDED - Follow-up Referral Minutes to complete discharge: 30 - AMA Did Patient Leave Against Medical Advice: No
== END 2020-04-27 09:36 | disposition home or self-care (01) | DRG 772 ==
LOC: YASAS 11:27 → Y3E 11:28
PROVIDERS: ADMIT Allergy & Immunology; ATTEND Allergy & Immunology
PROC: HZ42ZZZ Group Counseling for Substance Abuse Treatment, Cognitive-Behavioral (ICD-10-PCS; principal; 2020-04-25)
DX: F11.20 Opioid dependence, uncomplicated (principal); F13.20 Sedative, hypnotic or anxiolytic dependence, uncomplicated; F17.210 Nicotine dependence, cigarettes, uncomplicated; L97.329 Non-pressure chronic ulcer of left ankle with unspecified severity; M54.5 Low back pain; G89.29 Other chronic pain; Z59.0 Homelessness
CPT/HCPCS: J0735

== ENCOUNTER 2021-09-03 17:57 | Inpatient (IN) | payer OTHER ==
[2021-09-03] MEDS ORDERED: MAGNESIUM CITRATE 300 ML BOTTLE PO PRN (20:14)
[2021-09-03] MEDS ORDERED: MAGNESIUM HYDROX 2400MG/30ML ORAL SUSPENSION 30 ML CUP PO PRN (20:14)
[2021-09-03] MEDS ORDERED: guaiFENesin 200 MG/10 ML 10 ML UNIT-DOSE CUPS PO PRN (20:14)
[2021-09-03] MEDS ORDERED: NALOXONE (NARCAN) HCL 4 MG/0.1 ML SPRAY NS PRN (20:14)
[2021-09-03] MEDS ORDERED: PROCHLORPERAZINE MALEATE 5 MG TABLET PO PRN (20:14)
[2021-09-03] MEDS ORDERED: ACETAMINOPHEN 325 MG TABLET (FP) PO PRN (20:14)
[2021-09-03] MEDS ORDERED: NALOXONE HCL 0.4 MG/ML VIAL IM PRN (20:14)
[2021-09-03] MEDS ORDERED: LOPERAMIDE HCL 2 MG CAPSULE PO PRN (20:14)
[2021-09-03] MEDS ORDERED: MENTHOL/PHENOL 1 EACH UD MM PRN (20:14)
[2021-09-03] MEDS ORDERED: BISMUTH SUBSALICYLATE 524 MG/30 ML PO PRN (20:14)
[2021-09-03] MEDS ORDERED: DICYCLOMINE HCL 10 MG CAPSULE PO PRN (20:14)
[2021-09-03] MEDS ORDERED: NICOTINE POLACRILEX 2 MG GUM BUC PRN (20:14)
[2021-09-03] MEDS ORDERED: P-EPHED 60MG/TRIPROLIDI 2.5MG TABLET PO PRN (20:14)
[2021-09-03] MEDS ORDERED: MAG HYDROX/AL HYDROX/SIMETH 30 ML UNIT-DOSE CUP PO PRN (20:14)
[2021-09-03] MEDS ORDERED: METHOCARBAMOL 500 MG TABLET PO PRN (20:14)
[2021-09-03 22:18] VITALS: BMI 18.7
[2021-09-04] MEDS ORDERED: methaDONE HCL 10 MG TABLET (FOR DETOX USE ONLY) PO ONE ×2 (00:03→10:00)
[2021-09-04] MEDS ORDERED: methaDONE HCL 10 MG TABLET (FOR DETOX USE ONLY) ONE (00:10)
[2021-09-04] MEDS: THIAMINE HCL 100 MG TABLET (FP) PO SCH ×2 (00:11→22:47)
[2021-09-04] MEDS: MELATONIN 5 MG TABLETS PO SCH ×2 (00:11→22:47)
[2021-09-04] MEDS: diazePAM 5 MG TABLET PO PRN ×6 (02:18→22:46)
[2021-09-04] MEDS: ACETAMINOPHEN 325 MG TABLET (FP) PO PRN ×2 (03:37→18:45)
[2021-09-04] MEDS: PRENATAL VITAMINS W/ FOLIC ACID TABLET (FP) PO SCH (10:15)
[2021-09-04] MEDS: NICOTINE 21 MG/24 HOURS TOPICAL PATCH TD SCH (10:15)
[2021-09-05] MEDS: diazePAM 5 MG TABLET PO PRN ×4 (09:27→22:34)
[2021-09-05] MEDS ORDERED: methaDONE HCL 10 MG TABLET (FOR DETOX USE ONLY) ONE (09:57)
[2021-09-05] MEDS ORDERED: ESCITALOPRAM OXALATE 10 MG TABLET PO SCH (10:00)
[2021-09-05] MEDS: NICOTINE 21 MG/24 HOURS TOPICAL PATCH TD SCH (10:04)
[2021-09-05] MEDS: BACITRACIN 0.9 GM PACKET TP SCH ×2 (10:05→22:33)
[2021-09-05] MEDS: ESCITALOPRAM OXALATE 10 MG TABLET PO SCH (10:05)
[2021-09-05] MEDS: PRENATAL VITAMINS W/ FOLIC ACID TABLET (FP) PO SCH (10:05)
[2021-09-05] MEDS: IBUPROFEN 400 MG TABLET (FP) PO PRN (10:07)
[2021-09-05] MEDS: GABAPENTIN 100 MG CAPSULE PO SCH ×2 (10:09→22:34)
[2021-09-05 14:08] LABS: SARS-CoV-2 NAA Not Detected (Not Detected)
[2021-09-05] MEDS: MELATONIN 5 MG TABLETS PO SCH (22:33)
[2021-09-05] MEDS: THIAMINE HCL 100 MG TABLET (FP) PO SCH (22:34)
[2021-09-05] MEDS: ACETAMINOPHEN 325 MG TABLET (FP) PO PRN (22:35)
[2021-09-06] MEDS: diazePAM 5 MG TABLET PO PRN ×4 (06:24→22:35)
[2021-09-06] MEDS ORDERED: methaDONE HCL 10 MG TABLET (FOR DETOX USE ONLY) PO ONE (10:00)
[2021-09-06] MEDS: PRENATAL VITAMINS W/ FOLIC ACID TABLET (FP) PO SCH (10:13)
[2021-09-06] MEDS: IBUPROFEN 400 MG TABLET (FP) PO PRN (10:16)
[2021-09-06] MEDS: BACITRACIN 0.9 GM PACKET TP SCH ×2 (10:20→22:26)
[2021-09-06] MEDS: ESCITALOPRAM OXALATE 10 MG TABLET PO SCH (10:20)
[2021-09-06] MEDS: GABAPENTIN 100 MG CAPSULE PO SCH ×2 (10:20→22:27)
[2021-09-06] MEDS: NICOTINE 21 MG/24 HOURS TOPICAL PATCH TD SCH (10:20)
[2021-09-06] MEDS: MELATONIN 5 MG TABLETS PO SCH (22:26)
[2021-09-06] MEDS: THIAMINE HCL 100 MG TABLET (FP) PO SCH (22:27)
[2021-09-06] MEDS: ACETAMINOPHEN 325 MG TABLET (FP) PO PRN (22:28)
[2021-09-07 09:01] VITALS: BP 110/60; PULSE 68; TEMP 97.7
[2021-09-07] MEDS ORDERED: methaDONE HCL 10 MG TABLET (FOR DETOX USE ONLY) ONE (09:45)
[2021-09-07] MEDS: NICOTINE 21 MG/24 HOURS TOPICAL PATCH TD SCH (10:19)
[2021-09-07] MEDS: GABAPENTIN 100 MG CAPSULE PO SCH (10:20)
[2021-09-07] MEDS: ESCITALOPRAM OXALATE 10 MG TABLET PO SCH (10:21)
[2021-09-07] MEDS: PRENATAL VITAMINS W/ FOLIC ACID TABLET (FP) PO SCH (10:21)
[2021-09-07] MEDS: BACITRACIN 0.9 GM PACKET TP SCH (11:12)
[2021-09-08] MEDS ORDERED: methaDONE HCL 10 MG TABLET (FOR DETOX USE ONLY) PO ONE (10:00)
== END 2021-09-07 12:58 | disposition home or self-care (01) | DRG 773 ==
LOC: YASAS 17:57 → Y3N 22:35
PROVIDERS: ADMIT Allergy & Immunology; ATTEND Allergy & Immunology
PROC: HZ2ZZZZ Detoxification Services for Substance Abuse Treatment (ICD-10-PCS; principal; 2021-09-03)
DX: F11.23 Opioid dependence with withdrawal (principal); F14.20 Cocaine dependence, uncomplicated; F13.20 Sedative, hypnotic or anxiolytic dependence, uncomplicated; F17.210 Nicotine dependence, cigarettes, uncomplicated; F19.24 Other psychoactive substance dependence with psychoactive substance-induced mood disorder; G40.909 Epilepsy, unspecified, not intractable, without status epilepticus; I10 Essential (primary) hypertension; B18.2 Chronic viral hepatitis C; Z62.810 Personal history of physical and sexual abuse in childhood; R63.4 Abnormal weight loss; Z68.1 Body mass index [BMI] 19.9 or less, adult; Z56.0 Unemployment, unspecified; Z59.00 Homelessness unspecified; Z91.14 Patient's other noncompliance with medication regimen
CPT/HCPCS: 73610-TC-LT-FY; 81025; 93005; 93010; C9803; U0003; U0005

== ENCOUNTER 2023-04-26 10:16 | Inpatient (IN) | payer OTHER ==
[2023-04-26 12:08] VITALS: BMI 17.9
[2023-04-26] MEDS ORDERED: MAGNESIUM HYDROX 2400MG/30ML ORAL SUSPENSION 30 ML CUP PO PRN (14:34)
[2023-04-26] MEDS ORDERED: LOPERAMIDE HCL 2 MG CAPSULE PO PRN (14:34)
[2023-04-26] MEDS ORDERED: hydrOXYzine PAMOATE 25 MG CAPSULE (FP) PO PRN (14:34)
[2023-04-26] MEDS ORDERED: guaiFENesin 600 MG TABLET.ER (FP) PO PRN (14:34)
[2023-04-26] MEDS ORDERED: IBUPROFEN 600 MG TABLET (FP) PO PRN (14:34)
[2023-04-26] MEDS ORDERED: BENZOCAINE/MENTHOL (CHLORASEPTIC ) LOZENGE MM PRN (14:34)
[2023-04-26] MEDS ORDERED: NICOTINE POLACRILEX 2 MG GUM BUC PRN (14:34)
[2023-04-26] MEDS ORDERED: MAG HYDROX/AL HYDROX/SIMETH 30 ML UNIT-DOSE CUP PO PRN (14:34)
[2023-04-26] MEDS ORDERED: ONDANSETRON *ODT* 4 MG TABLET SL PRN (14:34)
[2023-04-26] MEDS ORDERED: NALOXONE HCL 0.4 MG/ML VIAL IM PRN (14:34)
[2023-04-26] MEDS ORDERED: DICYCLOMINE HCL 10 MG CAPSULE PO PRN (14:34)
[2023-04-26] MEDS ORDERED: ACETAMINOPHEN 325 MG TABLET (FP) PO PRN (14:34)
[2023-04-26] MEDS ORDERED: POLYETHYLENE GLYCOL (HEALTHYLAX) 3350 17 GM PACKET PO PRN (14:34)
[2023-04-26] MEDS ORDERED: METHOCARBAMOL 500 MG TABLET PO PRN (14:34)
[2023-04-26] MEDS ORDERED: BENZONATATE 200 MG CAPSULE PO PRN (14:34)
[2023-04-26] MEDS ORDERED: IBUPROFEN 400 MG TABLET (FP) PO PRN (14:34)
[2023-04-26] MEDS ORDERED: NALOXONE HCL (KLOXXADO) 8 MG SPRAY NS PRN (14:34)
[2023-04-26] MEDS ORDERED: cloNIDine HCL 0.1 MG TABLET PO PRN (14:34)
[2023-04-26] MEDS ORDERED: BISMUTH SUBSALICYLATE 524 MG/30 ML PO PRN (14:34)
[2023-04-26] MEDS ORDERED: methaDONE HCL 10 MG TABLET (FOR DETOX USE ONLY) PO ONE (15:00)
[2023-04-26] MEDS ORDERED: methaDONE HCL 10 MG TABLET (FOR DETOX USE ONLY) ONE (15:03)
[2023-04-26] MEDS: diazePAM 5 MG TABLET PO SCH ×2 (16:28→23:15)
[2023-04-26] MEDS: CLINDAMYCIN HCL 150 MG CAPSULE (FP) PO SCH ×2 (17:20→23:55)
[2023-04-26] MEDS: diazePAM 5 MG TABLET PO PRN (19:17)
[2023-04-26] MEDS: SULFAMETHOXAZOLE/TRIMETHOPRIM 800MG/160MG D.S. TABLET PO SCH (23:00)
[2023-04-26] MEDS: THIAMINE HCL 100 MG TABLET (FP) PO SCH (23:00)
[2023-04-26] MEDS: MELATONIN 5 MG TABLETS PO SCH (23:02)
[2023-04-26] MEDS: SILVER SULFADIAZINE 1% TOP CREAM 50 GM JAR TP SCH (23:09)
[2023-04-27] MEDS: CLINDAMYCIN HCL 150 MG CAPSULE (FP) PO SCH ×5 (05:11→23:39)
[2023-04-27] MEDS: diazePAM 5 MG TABLET PO SCH ×4 (05:11→23:41)
[2023-04-27] MEDS: diazePAM 5 MG TABLET PO PRN ×3 (07:39→19:00)
[2023-04-27] MEDS: PRENATAL VITAMINS W/ FOLIC ACID TABLET (FP) PO SCH (09:45)
[2023-04-27] MEDS: SULFAMETHOXAZOLE/TRIMETHOPRIM 800MG/160MG D.S. TABLET PO SCH ×2 (09:46→22:40)
[2023-04-27] MEDS: NICOTINE 21 MG/24 HOURS TOPICAL PATCH TD SCH (09:48)
[2023-04-27] MEDS: SILVER SULFADIAZINE 1% TOP CREAM 50 GM JAR TP SCH ×2 (09:49→23:40)
[2023-04-27] MEDS ORDERED: TRIMETHOBENZAMIDE HCL 200MG/2ML INJ IM PRN (10:19)
[2023-04-27 11:31] LABS: HEMATOCRIT 35.2 % (32.4-45.2); HEMOGLOBIN 11.6 GM/dL (10.7-15.3); MCH 26.5 pg (25.7-33.7); MEAN CELL VOLUME 80.2 fl (80-96); MEAN PLT VOLUME 7.3 fl (7.5-11.1); PLATELET COUNT 277 10^3/uL (134-434); RBC 4.39 M/mm3 (3.60-5.2); RDW 15.7 % (11.6-15.6)
[2023-04-27 11:37] LABS: CHLORIDE 111 mmol/L (98-107); POTASSIUM 4.5 mmol/L (3.5-5.1); SODIUM 141 mmol/L (136-145)
[2023-04-27 11:43] LABS: CALCIUM 7.9 mg/dL (8.5-10.1)
[2023-04-27 11:44] LABS: ANION GAP 5 mmol/L (4-13); BLOOD UREA NITROGEN 20.2 mg/dL (7-18); CO2 25 mmol/L (21-32); GLUCOSE,RANDOM 85 mg/dL (74-106)
[2023-04-27 11:46] LABS: SGPT/ALT 28 U/L (13-61)
[2023-04-27 11:47] LABS: CREATININE 0.6 mg/dL (0.55-1.3); SGOT/AST 18 U/L (15-37)
[2023-04-27 11:48] LABS: TOT PROT 6.4 g/dl (6.4-8.2)
[2023-04-27 11:49] LABS: ALK PHOS 77 U/L (45-117); BILIRUBIN,TOTAL 0.5 mg/dL (0.2-1)
[2023-04-27] MEDS: GABAPENTIN 100 MG CAPSULE PO SCH ×2 (13:34→20:39)
[2023-04-27 16:04] LABS: URINE APPEARANCE CLEAR; URINE BILIRUBIN NEGATIVE (NEGATIVE); URINE COLOR YELLOW; URINE GLUCOSE (UA) NEGATIVE (NEGATIVE); URINE KETONE NEGATIVE (NEGATIVE); URINE LEUK ESTERASE NEGATIVE (NEGATIVE); URINE NITRITE NEGATIVE (NEGATIVE); URINE PROTEIN NEGATIVE (NEGATIVE); URINE UROBILINOGEN 0.2 mg/dL (0.2-1.0)
[2023-04-27] MEDS: MELATONIN 5 MG TABLETS PO SCH (22:00)
[2023-04-27] MEDS: THIAMINE HCL 100 MG TABLET (FP) PO SCH (22:40)
[2023-04-28] MEDS: CLINDAMYCIN HCL 150 MG CAPSULE (FP) PO SCH ×2 (05:46→11:24)
[2023-04-28] MEDS: GABAPENTIN 100 MG CAPSULE PO SCH (05:46)
[2023-04-28] MEDS ORDERED: diazePAM 5 MG TABLET PO SCH (06:00)
[2023-04-28 06:40] VITALS: RESP 18
[2023-04-28] MEDS: NICOTINE 21 MG/24 HOURS TOPICAL PATCH TD SCH (09:10)
[2023-04-28] MEDS: diazePAM 5 MG TABLET PO PRN (09:10)
[2023-04-28] MEDS: SULFAMETHOXAZOLE/TRIMETHOPRIM 800MG/160MG D.S. TABLET PO SCH (09:10)
[2023-04-28] MEDS: PRENATAL VITAMINS W/ FOLIC ACID TABLET (FP) PO SCH (09:14)
[2023-04-28] MEDS: SILVER SULFADIAZINE 1% TOP CREAM 50 GM JAR TP SCH (09:14)
[2023-04-28 09:20] VITALS: BP 116/77; PULSE 88; TEMP 97.1
[2023-04-28] MEDS ORDERED: methaDONE HCL 10 MG TABLET (FOR DETOX USE ONLY) PO ONE (10:00)
[2023-04-29] MEDS ORDERED: diazePAM 5 MG TABLET PO SCH (06:00)
[2023-04-30] MEDS ORDERED: diazePAM 5 MG TABLET PO ONE (06:00)
[2023-04-30] MEDS ORDERED: methaDONE HCL 10 MG TABLET (FOR DETOX USE ONLY) PO ONE (10:00)
== END 2023-04-28 13:00 | disposition left against medical advice (07) | DRG 770 ==
LOC: SUATTDRO 10:16 → YASAS 10:16 → Y6N 15:08
PROVIDERS: ADMIT Allergy & Immunology; ATTEND Surgery
PROC: HZ2ZZZZ Detoxification Services for Substance Abuse Treatment (ICD-10-PCS; principal; 2023-04-26)
DX: F11.23 Opioid dependence with withdrawal (principal); F13.230 Sedative, hypnotic or anxiolytic dependence with withdrawal, uncomplicated; F10.20 Alcohol dependence, uncomplicated; F17.210 Nicotine dependence, cigarettes, uncomplicated; F19.280 Other psychoactive substance dependence with psychoactive substance-induced anxiety disorder; F39 Unspecified mood [affective] disorder; F43.10 Post-traumatic stress disorder, unspecified; I10 Essential (primary) hypertension; L03.111 Cellulitis of right axilla; L97.321 Non-pressure chronic ulcer of left ankle limited to breakdown of skin; R63.4 Abnormal weight loss; Z68.1 Body mass index [BMI] 19.9 or less, adult; Z86.19 Personal history of other infectious and parasitic diseases; Z56.0 Unemployment, unspecified; Z59.00 Homelessness unspecified
CPT/HCPCS: 36415; 80053; 80305; 80307; 81003; 81025; 85027; 86593; 86780; 87635; 87811

== ENCOUNTER 2023-09-14 19:49 | Inpatient (IN) | payer SELFPAY ==
[2023-09-14 21:10] VITALS: BMI 18.5
[2023-09-14] MEDS ORDERED: BISMUTH SUBSALICYLATE 524 MG/30 ML PO PRN (21:56)
[2023-09-14] MEDS ORDERED: P-EPHED 60MG/TRIPROLIDI 2.5MG TABLET PO PRN (21:56)
[2023-09-14] MEDS ORDERED: POLYETHYLENE GLYCOL (HEALTHYLAX) 3350 17 GM PACKET PO PRN (21:56)
[2023-09-14] MEDS ORDERED: guaiFENesin 600 MG TABLET.ER (FP) PO PRN (21:56)
[2023-09-14] MEDS ORDERED: METHOCARBAMOL 500 MG TABLET PO PRN (21:56)
[2023-09-14] MEDS ORDERED: LOPERAMIDE HCL 2 MG CAPSULE PO PRN (21:56)
[2023-09-14] MEDS ORDERED: MAG HYDROX/AL HYDROX/SIMETH 30 ML UNIT-DOSE CUP PO PRN (21:56)
[2023-09-14] MEDS ORDERED: IBUPROFEN 400 MG TABLET (FP) PO PRN (21:56)
[2023-09-14] MEDS ORDERED: ACETAMINOPHEN 325 MG TABLET (FP) PO PRN (21:56)
[2023-09-14] MEDS ORDERED: IBUPROFEN 600 MG TABLET (FP) PO PRN (21:56)
[2023-09-14] MEDS ORDERED: NALOXONE HCL (KLOXXADO) 8 MG SPRAY NS PRN (21:56)
[2023-09-14] MEDS ORDERED: BENZONATATE 200 MG CAPSULE PO PRN (21:56)
[2023-09-14] MEDS ORDERED: ONDANSETRON *ODT* 4 MG TABLET SL PRN (21:56)
[2023-09-14] MEDS ORDERED: hydrOXYzine PAMOATE 25 MG CAPSULE (FP) PO PRN (21:56)
[2023-09-14] MEDS ORDERED: BENZOCAINE/MENTHOL (CHLORASEPTIC ) LOZENGE MM PRN (21:56)
[2023-09-14] MEDS ORDERED: NALOXONE HCL 0.4 MG/ML VIAL IM PRN (21:56)
[2023-09-14] MEDS ORDERED: NICOTINE POLACRILEX 2 MG LOZENGE BC PRN (21:56)
[2023-09-14] MEDS ORDERED: MAGNESIUM HYDROX 2400MG/30ML ORAL SUSPENSION 30 ML CUP PO PRN (21:56)
[2023-09-14] MEDS ORDERED: DICYCLOMINE HCL 10 MG CAPSULE PO PRN (21:56)
[2023-09-14] MEDS: MELATONIN 5 MG TABLETS PO SCH (22:30)
[2023-09-14] MEDS: THIAMINE HCL 100 MG TABLET (FP) PO SCH (22:31)
[2023-09-15] MEDS ORDERED: cloNIDine HCL 0.1 MG TABLET PO PRN (08:47)
[2023-09-15] MEDS: methaDONE HCL 10 MG TABLET (FOR DETOX USE ONLY) PO ONE (09:21)
[2023-09-15] MEDS: PRENATAL VITAMINS W/ FOLIC ACID TABLET (FP) PO SCH (09:23)
[2023-09-15] MEDS: diazePAM 5 MG TABLET PO SCH (10:03)
[2023-09-15 12:17] LABS: CHLORIDE 106 mmol/L (98-107); POTASSIUM 4.4 mmol/L (3.5-5.1); SODIUM 140 mmol/L (136-145)
[2023-09-15 12:19] LABS: HEMATOCRIT 40.3 % (32.4-45.2); HEMOGLOBIN 13.8 GM/dL (10.7-15.3); MCHC 34.2 g/dl (32.0-36.0); MEAN CELL VOLUME 79.1 fl (80-96); MEAN PLT VOLUME 7.1 fl (7.5-11.1); PLATELET COUNT 211 10^3/uL (134-434); RBC 5.09 M/mm3 (3.60-5.2); RDW 15.1 % (11.6-15.6); WHITE BLOOD COUNT 7.6 K/mm3 (4.0-10.0)
[2023-09-15 12:20] LABS: CALCIUM 8.6 mg/dL (8.5-10.1)
[2023-09-15 12:21] LABS: ALBUMIN 3.2 g/dl (3.4-5.0); ANION GAP 4 mmol/L (4-13); BLOOD UREA NITROGEN 22.2 mg/dL (7-18); CO2 29 mmol/L (21-32); GLUCOSE,RANDOM 78 mg/dL (74-106)
[2023-09-15 12:24] LABS: CREATININE 0.6 mg/dL (0.55-1.3); SGOT/AST 95 U/L (15-37); SGPT/ALT 82 U/L (13-61); TOT PROT 6.7 g/dl (6.4-8.2)
[2023-09-15 12:25] LABS: BILIRUBIN,TOTAL 0.2 mg/dL (0.2-1)
[2023-09-15 12:26] LABS: ALK PHOS 102 U/L (45-117)
[2023-09-15] MEDS: diazePAM 5 MG TABLET PO PRN (13:29)
[2023-09-16] MEDS: NICOTINE POLACRILEX 2 MG GUM BUC PRN (10:07)
[2023-09-16 17:03] VITALS: BP 114/74; PULSE 95; RESP 16; TEMP 97.3
[2023-09-17] MEDS ORDERED: diazePAM 5 MG TABLET PO SCH (06:00)
[2023-09-17] MEDS ORDERED: methaDONE HCL 10 MG TABLET (FOR DETOX USE ONLY) PO ONE (10:00)
[2023-09-18] MEDS ORDERED: diazePAM 5 MG TABLET PO SCH (06:00)
[2023-09-19] MEDS ORDERED: diazePAM 5 MG TABLET PO ONE (06:00)
[2023-09-19] MEDS ORDERED: methaDONE HCL 10 MG TABLET (FOR DETOX USE ONLY) PO ONE (10:00)
== END 2023-09-16 17:00 | disposition left against medical advice (07) | DRG 770 ==
LOC: YASAS 19:49 → Y6N 22:22
PROVIDERS: ADMIT Allergy & Immunology; ATTEND Surgery
PROC: HZ2ZZZZ Detoxification Services for Substance Abuse Treatment (ICD-10-PCS; principal; 2023-09-14)
DX: F11.20 Opioid dependence, uncomplicated (principal); F13.20 Sedative, hypnotic or anxiolytic dependence, uncomplicated; F17.210 Nicotine dependence, cigarettes, uncomplicated; F39 Unspecified mood [affective] disorder; R63.4 Abnormal weight loss; Z68.1 Body mass index [BMI] 19.9 or less, adult; Z87.2 Personal history of diseases of the skin and subcutaneous tissue; Z86.19 Personal history of other infectious and parasitic diseases; Z59.02 Unsheltered homelessness
CPT/HCPCS: 0241U-QW; 36415; 80053; 80305; 80307; 81025; 85027; 86593; 86780; 87811